=== PATIENT | female | born 1950 | race Caucasian/White ===

== ENCOUNTER → 2019-07-26 09:44 | Outpatient (CLI) | payer MEDICARE, OTHER, SELFPAY ==
--- NOTE | 2019-07-26 | ASPOS_PTH ---
PATIENT: TRISH HEREDIA LOC: [facility] U#:[id number] AGE/SX: 74/F ROOM: RE07/26/[address]: Dr. Messi Tejeda MD : 1950 BED: DIS: SPEC #: [id number] RECD: 07/26/19 12:28 STATUS: JUSTIN REBebeto #: [id number] SINA: 07/26/19 00:[address]: Messi Tejeda DEPT: CYTOLOGY RECD BY: Messi Ellison ENTERED: 07/26/19 12:29 SP TYPE: ASP HERE OTHR DR: Dr. Jeny Ponce MD Tissues: Parotid gland, NOS Procedures: Surgery Specimen Level IV Cytology Other Fine Needle Asp on Site HEADER OPERATION: FNA right parotid/neck mass PRE-OP DIAGNOSIS: Right neck mass TISSUE SUBMITTED: FNA right parotid/neck mass DIAGNOSIS CYTOLOGY Fine needle aspiration, right parotid/neck mass (smears and cell block): Consistent with pleomorphic adenoma. AM:liya 07/27/19 COMMENT The specimen is evaluated at the time of FNA by Dr. Marroquin. Immediate Evaluation = Consistent with polymorphic adenoma. Case has been reviewed in consultation with Dr. Chairez who concurs with the above diagnosis. IDC:SJ CYTOLOGY STUDY Slides are reviewed. CYTOLOGY GROSS Received is 0.2 ml of mucoid material labeled with the patient's name, and designated right parotid/neck mass. Five imprints and two paps are made from the submitted fluid and the rest is added to CytoLyt for cell block preparation. Submitted for cytology study. / AM:liya 07/26/19 TC:1 CPT: 39194, 48710, 07352
== END ==
PROVIDERS: Family Provider Internal Medicine; PCP Internal Medicine; Referring Provider Otolaryngology; Visit Provider Otolaryngology
DX: K11.8 Other diseases of salivary glands (principal)
CPT/HCPCS: 10021; 88161; 88305

== ENCOUNTER 2020-03-06 05:48 | Day surgery (SDC) | payer MEDICARE, OTHER, SELFPAY ==
--- NOTE | 2020-02-28 16:57 | EKG12_ITS ---
Test Reason : PREOP Blood Pressure : / mmHG Vent. Rate : 076 BPM Atrial Rate : 076 BPM P-R Int : 164 ms QRS Dur : 086 ms QT Int : 340 ms P-R-T Axes : 045 039 039 degrees QTc Int : 382 ms Normal sinus rhythm Normal ECG Confirmed by EVE RUIZ, CHRISTINA ([id number]), mapping editor STEPHANIA LOPEZ ([id number]) on 03/01/2020 1:29:39 PM Referred By: Celestino Tejeda Confirmed By:CHRISTINA PRADO MD
[2020-03-06] VITALS (13 sets, daily range): BP systolic 89–157; BP diastolic 52–82; PULSE 16–78; RESP 15–16; TEMP 36–36.6; O2SAT 88–98; BMI 34.6
[2020-03-06] MEDS: Lactated Ringers 1,000 ML 100 ML IV ×3 (06:22→14:30)
--- NOTE | 2020-03-06 07:30 | CYST_PTH ---
PATIENT: TRISH HEREDIA LOC: [facility] [place] U#:[id number] AGE/SX: 69/F ROOM: RE03/06/[address]: Dr. Messi Tejeda MD : 1950 BED: DIS: 03/06/2020 SPEC #: [id number] RECD: 03/06/20 12:26 STATUS: JUSTIN REBebeto #: [id number] SINA: 03/06/20 07:[address]: Messi Tejeda DEPT: SURGICAL PATHOLOGY RECD BY: Messi Ellison ENTERED: 03/06/20 12:39 SP TYPE: Cyst OTHR DR: Dr. Jeny Ponce MD Tissues: A - CYST B - Parotid gland, NOS Procedures: Surgery Specimen Level V HEADER OPERATION: Parotidectomy, fat graft PRE-OP DIAGNOSIS: Benign neoplasm of parotid gland TISSUE SUBMITTED: A - Cyst right neck, B - Superficial right parotid gland and mass MICROSCOPIC DIAGNOSIS A. Cyst right neck, biopsy: Pleomorphic adenoma (1.5 cm in greatest dimension). A piece of fibrous tissue with numerous nerve bundles. B. Superficial right parotid gland and mass, parotidectomy: Pleomorphic adenoma (1.5 cm in diameter). Adjacent salivary gland tissue, no pathologic diagnosis. See comment. SJ:liya 03/07/20 COMMENT Please make reference to previous specimen ([id number]) fine needle aspiration, right parotid/neck mass with diagnosis of consistent with pleomorphic adenoma. MICROSCOPIC DESCRIPTION Slides are reviewed. GROSS DESCRIPTION A - Received in fixative is one container labeled with the patient's name and designated cyst right neck. The specimen consists of a piece of dotson, indurated soft tissue measuring 0.5 x 0.5 x 0.3 cm. This piece is bisected. Also present in the container is a dotson to light yellow nodular tissue measuring 1.5 x 1.5 x 0.6 cm. This piece is inked, serially sectioned and consists of a cyst filled with mucoid material. The entire specimen is submitted in one cassette. B - Received in fixative is one container labeled with the patient's name and designated superficial right parotid gland and mass. The specimen consists of a piece of dotson nodular tissue measuring 2.5 x 2 x 1.5 cm and weighing 3 gm. The specimen is serially sectioned and reveal a dotson-white solid nodule measuring 1.5 cm in diameter. The entire specimen is submitted in four cassettes from one end to another. / SJ:rg 03/06/20 TC:1 CPT: 06028 x2
[2020-03-06] MEDS: Mupirocin Ointment 22gm Tube 1 APPLIC (08:33)
--- NOTE | 2020-03-06 13:14 | DCINST_ITS ---
You will use the following diet at home:: No restrictions Your food should be the consistency of: Regular Discharge Activity: May not drive while taking narcotic pain medications., May Not Shower Call your doctor if your incision/area has: Increased Pain/ Swelling Additional Dressing/Incision Instructions:: record drain output. mupirocin ointment to facial incision twice daily. wear abdominal binder snug but not too tight. sleep with head of bed elevated. Allergies/Adverse Reactions: Allergies No Known Allergies Allergy (Verified 03/06/20 06:06) Medications to take at Discharge Albuterol Inhaler [Ventolin Hfa (SP)] 1 - 2 puff INHALATION Q6H PRN PRN 02/28/20 Fluticasone 110 Mcg [Flovent (SP)] 1 puff INHALATION PRN PRN 02/28/20 Pantoprazole Sodium [Protonix] 20 mg PO DAILY 02/28/20 Primary Care Physician: Jeny Ponce MD [Primary Care Provider] - Test Results: Test results from this visit will be discussed in further detail at your follow- up appointment, if applicable. Please Follow Up With: Celestino Tejeda MD When: friday 8am
--- NOTE | 2020-03-06 13:16 | PCM.OPRPT ---
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 right superficial parotidectomy with dissection and preservation of facial nerve. 2. abdominal fat graft. 3. superficial musculoaponeurotic system flap, right. Type of Anesthesia:: General Description of Procedure: on the day of the procedure, after appropriate informed consent was obtained, the patient was brought to the operating room and placed in supine position on the operating table. she was placed under general endotracheal anesthesia by the anesthesiologist. the endotracheal tube was secured, tegaderm was placed over the eyes. right-sided facial nerve electrodes were placed appropriately. a right modified kelsi incision was injected with lidocaine/epinephrine. the face was prepped and draped in sterile fashion. the kelsi incision was made with a #15 blade. the subcutaneous fat was entered in the preauricular area traversing into the neck, superficial to the platysma. a 15 blade was used to incise the parotid masseteric fascia anterior to the tragus. the superficial musculoaponeurotic system flap was elevated 4cm anterior to the tragus and lifted into the neck with the platysma muscle. the tumor was very superficial and stuck to the SMAS. this area was left partly undissected until later in the case. an infraauricular sebaceous cyst was removed; this was subcutaneous and anterior to the kelsi incision. the tragal pointer was dissected in a supraperichondrial plane with an iris scissor. the inferior portion of the parotid was dissected off of the sternocleidomastoid muscle with the bovie. tissue 1cm deep and inferior to the tragal pointer was carefully dissected. a shavon dissector was used to locate the main trunk of the facial nerve. this was stimulated and confirmed. this was dissected distally to the pes anserinus. the upper division was dissected proximally. the lower division branches were dissected starting from inferior to superior. the marginal mandibular branch and the buccal branch were both intimately associated with the tumor and carefully dissected off with the sands. the SMAS was reflected off of the lateral portion of the tumor carefully with an iris scissor. once safe, the tumor was truncated and removed from surrounding tissue. the main trunk of the facial nerve was stimulated and all branches showed normal movement. the left lower quadrant was injected with lidocaine/epinephrine. a 3cm incision was made transversely with a 15 blade. a 3cm x 3cm portion of fat was dissected subcutaneously and removed using a Metzenbaum scissor. hemostasis was achieved with the bipolar. the incision was closed with 4-0 vicryl and 4-0 monocryl. a brody drain was placed. the fat graft was irrigated and placed in the parotidectomy defect. this was sutured to surrounding fascia and remaining gland with 4-0 vicryl. the superficial musculoaponeurotic system flap was closed over the remaining parotid and fat graft with 4-0 vicryl. a drain was placed lateral to the SMAS flap. the skin was closed with 4-0 chromic and 5-0 nylon. the patient was awoken from anesthesia and transferred to the PACU in stable condition.
== END 2020-03-06 17:36 | disposition home or self-care (01) ==
LOC: SDC 05:48 → AC 05:48
PROVIDERS: Anesthesiology; PCP Internal Medicine; Referring Provider Otolaryngology; Visit Provider Otolaryngology
PROC: (CPT 15829; principal; 2020-03-06 07:00)
DX: D11.0 Benign neoplasm of parotid gland (principal); K21.9 Gastro-esophageal reflux disease without esophagitis; J45.909 Unspecified asthma, uncomplicated
CPT/HCPCS: 15829; 42415; 87635; 88304; 88305; 88307; 93005; 94799; J7120; J2405; U0003

== ENCOUNTER → 2021-04-18 09:53 | Outpatient (CLI) | payer MEDICARE, OTHER, SELFPAY ==
--- NOTE | 2021-04-18 09:56 | ART_ITS ---
Reason For Study: Decreased pulses in feet Procedure A bilateral lower extremity continuous wave Doppler with analog waveform analysis,segmental pressures,and ankle brachial indexes without exercise. Left Segmental Pressures Left brachial= 150mmHg. Left posterior tibial artery = 166mmHg. Left dorsalis pedis artery = 163mmHg. The left dorsalis pedis waveforms are triphasic. The left posterior tibial artery waveforms are triphasic. Right Segmental Pressures Right brachial= 153mmHg. Right posterior tibial artery = 188mmHg. Right dorsalis pedis artery = 174mmHg. The right dorsalis pedis waveforms are triphasic. The right posterior tibial artery waveforms are triphasic. Indices The right ankle brachial index by the dorsalis pedis is 1.14. The right ankle brachial index by the posterior tibial artery is 1.23. The left ankle brachial index by the dorsalis pedis is 1.07. The left ankle brachial index by the posterior tibial artery is 1.08. VL/Lower Ext Art Exam w/o Exercis Interpretation Summary Triphasic Doppler waveforms are noted at ankle level bilaterally. Pulse-volume recordings appear slightly diminished at digital level bilaterally, but satisfactory at all other levels bilaterally. Resting ankle-brachial indices are normal bilaterally. There is no evidence of significant arterial occlusive disease in the lower ext remities bilaterally. Ordering Physician: Jeny Ponce Referring Physician: Jeny Ponce Performed By: Petrona Rios RVT
== END ==
PROVIDERS: PCP Internal Medicine; Referring Provider Internal Medicine; Visit Provider Internal Medicine
DX: R09.89 Other specified symptoms and signs involving the circulatory and respiratory systems (principal)
CPT/HCPCS: 93923

== ENCOUNTER → 2023-08-21 | Outpatient (CLI) | payer MEDICARE, SELFPAY ==
[2023-08-21 09:00] LABS: Absolute Lymphocyte Count 1.86 X10^3/uL (0.83-4.51); Absolute Neutrophil Count 3.3 X10^3/uL (2.0-7.7); Basophil# 0.02 X10^3/uL; Basophil% 0.4 % (0-1); Eosinophil# 0.17 X10^3/uL; Hematocrit 43.2 % (37-47); Hemoglobin 13.2 g/dL (12.0-15.0); Lymphocyte # 1.86 X10^3/ul (0.83-4.51); Mean Corp Hgb Conc 30.6 g/dL (32-36); Mean Corpuscular Hgb 24.5 pg (27.0-32.0); Mean Corpuscular Volume 80.3 fL (81-99); Mean Platelet Vol. 9.6 fl (6.2-12.0); Monocyte# 0.28 X10^3/uL; NRBC Flagged by Analyzer 0 % (0-5); Neutrophil # 3.29 X10^3/uL (2.7-7.7); Neutrophil % 58.4 % (47-70); Platelet Count 163 K/mm3 (150-450); RBC Distribution Width SD 40.4 fl (35.1-43.9); Red Blood Count 5.38 M/mm3 (4.2-5.4); White Blood Count 5.6 K/mm3 (4.4-11.0)
--- OUTSIDE RECORDS SUMMARY | 2023-08-21 09:47 | XMS RPT_ITS | CCD ---
Author Name Unknown Address [address] [place] [address] Organization [facility] Care Team Providers Care Integration Software Engineer Name Role Phone Zak Alexx Lee Unavailable Unavailable Crespo, Alexx A Unavailable Unavailable Marisa Montelongo Unavailable Unavailable [place], Sade Priyanka Primary Care Provider AGNIESZKA RIBEIRO Attending Unavailable CRESPO, ALEXX A Referring Unavailable AGNIESZKA RIBEIRO Attending Unavailable CRESPO, ALEXX A Referring Unavailable CRESPO, ALEXX BOWENS Attending Unavailable SHAHRZAD, SADE PRIYANKA Primary Care Unavailable CRESPO, ALEXX BOWENS Attending Unavailable SHAHRZAD, SADE PRIYANKA Primary Care Unavailable CRESPO, ALEXX KWAN Admitting Unavailable CRESPO, ALEXX KWAN Referring Unavailable SHAHRZAD, SADE PRIYANKA Primary Care Unavailable Sade Ponce MD Primary Care Provider Isai Ponce MD Primary Care Provider Queden CAMPGROUND MANAGER.PARRIS Lana Lee Primary Care Provider Queden CAMPGROUND MANAGER.Nikia NYEtny Lee Primary Care Provider QUEDEN, LANA A Referring Unavailable QUEDEN, LANA A Primary Care Unavailable QUEDEN, LANA A Primary Care Unavailable QUEDEN, LANA A Attending Unavailable QUEDEN, LANA A Referring Unavailable QUEDEN, LANA A Primary Care Unavailable QUEDEN, LANA A Attending Unavailable QUEDEN, LANA A Primary Care Unavailable QUEDEN, LANA A Attending Unavailable QUEDEN, LANA A Primary Care Unavailable QUEDEN, LANA A Attending Unavailable QUEDEN, LANA A Referring Unavailable QUEDEN, LANA A Primary Care Unavailable QUEDEN, LANA A Referring Unavailable QUEDEN, LANA A Primary Care Unavailable QUEDEN, LANA A Attending Unavailable QUEDEN, LANA A Primary Care Unavailable QUEDEN, LANA A Referring Unavailable QUEDEN, LANA A Primary Care Unavailable QUEDEN, LANA A Referring Unavailable QUEDEN, LANA A Primary Care Unavailable QUEDEN, LANA A Referring Unavailable QUEDEN, LANA A Referring Unavailable QUEDEN, LANA A Primary Care Unavailable QUEDEN, LANA A Primary Care Unavailable QUEDEN, LANA A Referring Unavailable QUEDEN, LANA A Primary Care Unavailable Allergies Allergy Classification Reported Allergen(s) Allergy Type Date of Onset Reaction(s) Facility (20 sources) Amoxicillin; Translations: [AMOXICILLIN] Drug Allergy 04-12-2020 [facility] Medications Current Medications Medication Drug Class(es) Dates Sig (Normalized) Sig (Original) ALPRAZolam 0.25 mg oral tablet (3 sources) Benzodiazepine Start: 03-25-2023 End: 04-22-2023 take 1 tablet by mouth every twelve hours as needed for anxiety and anxiety ALPRAZolam (XANAX) 0.25 mg tablet Indications: Anxiety Take 1 tablet by mouth twice daily as needed for anxiety or sedation for up to 28 days. 28 tablet 0 03/25/2023 04/22/2023 Active Completed/Discontinued Medications Medication Drug Class(es) Dates Sig (Normalized) Sig (Original) acetaminophen 325 mg / oxyCODONE hydrochloride 5 mg oral tablet (2 sources) Opioid Agonist Start: 07-21-2018 End: 09-01-2018 oxyCODONE-acetami nophen (PERCOCET) 5-325 mg per tablet [id number] 200 actuat albuterol 0.09 mg/actuat metered dose inhaler (20 sources) beta2-Adrenergic Agonist Start: 08-13-2022 take 2 puff(s) by inhalation every six hours as needed albuterol HFA (VENTOLIN HFA) 90 mcg/actuation inhaler Indications: SOB (shortness of breath) Inhale 2 Puffs as instructed every 6 hours as needed. 8.5 g 2 08/13/2022 Active Problems Active Problems Problem Classification Problem Date Documented Date Episodic/Chronic Anxiety disorders (20 sources) Anxiety; Translations: [Anxiety disorder, unspecified] Onset: 05-07-2022 Chronic Asthma (20 sources) Mild intermittent asthma; Translations: [Mild intermittent asthma with (acute) exacerbation] Onset: 08-13-2022 Chronic Diabetes mellitus without complication (2 sources) High hemoglobin A1c level; Translations: [Other abnormal glucose] Onset: 05-27-2023 05-27-2023 Episodic Disorders of lipid metabolism (20 sources) Mixed hyperlipidemia; Translations: [Mixed hyperlipidemia] Onset: 05-07-2022 Chronic Esophageal disorders (1 source) Gastro-esophageal reflux disease without esophagitis; Translations: [Hiatal hernia with GERD] Onset: 08-13-2022 Chronic Immunizations and screening for infectious disease (4 sources) Patient encounter status; Translations: [Encounter for immunization] Episodic Osteoarthritis (20 sources) Osteoarthritis of left knee joint; Translations: [Unilateral primary osteoarthritis, left knee] Onset: 09-17-2018 09-17-2018 Chronic Osteoarthritis (1 source) Osteoarthritis of right knee joint; Translations: [Primary osteoarthritis of right knee] Other aftercare (1 source) Other residential (current) drug therapy; Translations: [prison use of drug] Onset: 06-19-2023 Episodic Other connective tissue disease (20 sources) History of total knee arthroplasty; Translations: [Presence of left artificial knee joint] Onset: 09-17-2018 09-17-2018 Chronic Other ear and sense organ disorders (1 source) Impacted cerumen in left ear; Translations: [Impacted cerumen, left ear] 04-11-2023 Episodic Other inflammatory condition of skin (1 source) Psoriasis vulgaris; Translations: [Psoriasis vulgaris] Onset: 06-19-2023 Chronic Other lower respiratory disease (1 source) Lower respiratory tract infection; Translations: [Unspecified acute lower respiratory infection] Episodic Other lower respiratory disease (1 source) Cough; Translations: [Acute cough] 04-11-2023 Episodic Other lower respiratory disease (3 sources) Chronic cough; Translations: [Chronic cough] Onset: 05-27-2023 05-27-2023 Episodic Other nervous system disorders (20 sources) Walking difficulty due to lower leg; Translations: [Difficulty in walking, not elsewhere classified] Onset: 09-17-2018 09-17-2018 Chronic Other nutritional; endocrine; and metabolic disorders (20 sources) Obese class II; Translations: [Obesity, unspecified] Onset: 04-22-2018 04-22-2018 Chronic Other nutritional; endocrine; and metabolic disorders (20 sources) Obese class I; Translations: [Obesity, unspecified] Onset: 10-10-2021 10-10-2021 Chronic Other screening for suspected conditions (not mental disorders or infectious disease) (1 source) Encounter for screening for diseases of the blood and blood-forming organs and certain disorders involving the immune mechanism; Translations: [Screening for deficiency anemia] Onset: 05-27-2023 Episodic Unclassified (1 source) Acute cough; Translations: [Acute cough] Onset: 04-11-2023 Past or Other Problems Problem Classification Problem Date Documented Date Episodic/Chronic Abdominal hernia (20 sources) Gastroesophageal reflux disease with hiatal hernia; Translations: [Diaphragmatic hernia without obstruction or gangrene] Onset: 08-13-2022 Episodic Nonspecific chest pain (1 source) Other chest pain; Translations: [Chest tightness] Onset: 11-05-2022 Episodic Other lower respiratory disease (20 sources) Dyspnea; Translations: [Shortness of breath] Onset: 08-13-2022 Episodic Other lower respiratory disease (20 sources) Persistent cough; Translations: [Persistent cough] Onset: 08-13-2022 Episodic Other lower respiratory disease (1 source) Shortness of breath; Translations: [SOB (shortness of breath)] Onset: 08-13-2022 Episodic Other non-traumatic joint disorders (20 sources) Stiffness of left knee; Translations: [Stiffness of left knee, not elsewhere classified] Onset: 09-17-2018 09-17-2018 Episodic Other non-traumatic joint disorders (20 sources) Pain in left knee; Translations: [Pain in joint, lower leg] Onset: 09-17-2018 09-17-2018 Episodic Other upper respiratory infections (3 sources) Acute frontal sinusitis; Translations: [Acute frontal sinusitis, unspecified] Onset: 04-11-2023 Episodic Results Test Name Value Interpretation Reference Range Facil ity Vital Signs Date Time Vital Sign Value Performing Clinician Dilia khan 05-27-2023 13:31-0500 Body height 160.7 cm Lana Valentin APRN.CNP Work Phone: [facility] 05-27-2023 13:31-0500 Body temperature 97.9 [degF] Lana Queden CAMPGROUND MANAGER.NAILHEAD PUNCHER Work Phone: [facility] 05-27-2023 13:31-0500 Body weight 84.37 kg Lana Queden CAMPGROUND MANAGER.NAILHEAD PUNCHER Work Phone: [facility] 05-27-2023 13:31-0500 Diastolic blood pressure 74 mm[Hg] Lana Queden CAMPGROUND MANAGER.NAILHEAD PUNCHER Work Phone: [facility] 05-27-2023 13:31-0500 Heart rate 72 /min Lana Queden CAMPGROUND MANAGER.NAILHEAD PUNCHER Work Phone: [facility] 05-27-2023 13:31-0500 Respiratory rate 18 /min Lana Queden CAMPGROUND MANAGER.NAILHEAD PUNCHER Work Phone: [facility] 05-27-2023 13:31-0500 SaO2% (BldA) [Mass fraction] 97 % Lana Queden CAMPGROUND MANAGER.NAILHEAD PUNCHER Work Phone: [facility] 05-27-2023 13:31-0500 Systolic blood pressure 116 mm[Hg] Lana Queden CAMPGROUND MANAGER.NAILHEAD PUNCHER Work Phone: [facility] 04-11-2023 08:01-0400 Body height 160.7 cm Lana Queden CAMPGROUND MANAGER.NAILHEAD PUNCHER Work Phone: [facility] 04-11-2023 08:01-0400 Body temperature 98.2 [degF] Lana Queden CAMPGROUND MANAGER.NAILHEAD PUNCHER Work Phone: [facility] 04-11-2023 08:01-0400 Body weight 88.45 kg Lana Queden CAMPGROUND MANAGER.NAILHEAD PUNCHER Work Phone: [facility] 04-11-2023 08:01-0400 Diastolic blood pressure 76 mm[Hg] Lana Queden CAMPGROUND MANAGER.NAILHEAD PUNCHER Work Phone: [facility] 04-11-2023 08:01-0400 Heart rate 93 /min Lana Queden CAMPGROUND MANAGER.NAILHEAD PUNCHER Work Phone: [facility] 09-22-2023 08:01-0400 Respiratory rate 16 /min Lana Queden CAMPGROUND MANAGER.NAILHEAD PUNCHER Work Phone: [facility] 04-11-2023 08:01-0400 SaO2% (BldA) [Mass fraction] 98 % Lana Queden CAMPGROUND MANAGER.NAILHEAD PUNCHER Work Phone: [facility] 04-11-2023 08:01-0400 Systolic blood pressure 120 mm[Hg] Lana Queden CAMPGROUND MANAGER.NAILHEAD PUNCHER Work Phone: [facility] 03-25-2023 09:10-0400 Body height 160.7 cm Lana Queden CAMPGROUND MANAGER.NAILHEAD PUNCHER Work Phone: [facility] 03-25-2023 09:10-0400 Body temperature 97.7 [degF] Lana Queden CAMPGROUND MANAGER.NAILHEAD PUNCHER Work Phone: [facility] 03-25-2023 09:10-0400 Body weight 87.54 kg Lana Queden CAMPGROUND MANAGER.NAILHEAD PUNCHER Work Phone: [facility] 03-25-2023 09:10-0400 Diastolic blood pressure 72 mm[Hg] Lana Queden CAMPGROUND MANAGER.NAILHEAD PUNCHER Work Phone: [facility] 03-25-2023 09:10-0400 Heart rate 83 /min Lana Queden CAMPGROUND MANAGER.NAILHEAD PUNCHER Work Phone: [facility] 03-25-2023 09:10-0400 Respiratory rate 18 /min Lana Queden CAMPGROUND MANAGER.NAILHEAD PUNCHER Work Phone: [facility] 03-25-2023 09:10-0400 SaO2% (BldA) [Mass fraction] 96 % Lana Queden CAMPGROUND MANAGER.NAILHEAD PUNCHER Work Phone: [facility] 03-25-2023 09:10-0400 Systolic blood pressure 120 mm[Hg] Lana Queden CAMPGROUND MANAGER.NAILHEAD PUNCHER Work Phone: [facility] 11-25-2022 09:28-0400 Body height 160.7 cm Lana Queden CAMPGROUND MANAGER.NAILHEAD PUNCHER Work Phone: [facility] 11-25-2022 09:28-0400 Body temperature 98.01 [degF] Lana Queden CAMPGROUND MANAGER.NAILHEAD PUNCHER Work Phone: [facility] 11-25-2022 09:28-0400 Body weight 91.63 kg Lana Queden CAMPGROUND MANAGER.NAILHEAD PUNCHER Work Phone: [facility] 11-25-2022 09:28-0400 Diastolic blood pressure 78 mm[Hg] Lana Queden CAMPGROUND MANAGER.NAILHEAD PUNCHER Work Phone: [facility] 11-25-2022 09:28-0400 Heart rate 70 /min Lana Queden CAMPGROUND MANAGER.NAILHEAD PUNCHER Work Phone: [facility] 11-25-2022 09:28-0400 Respiratory rate 18 /min Lana Queden CAMPGROUND MANAGER.NAILHEAD PUNCHER Work Phone: [facility] 11-25-2022 09:28-0400 SaO2% (BldA) [Mass fraction] 98 % Lana Queden CAMPGROUND MANAGER.NAILHEAD PUNCHER Work Phone: [facility] 11-25-2022 09:28-0400 Systolic blood pressure 120 mm[Hg] Lana Queden CAMPGROUND MANAGER.NAILHEAD PUNCHER Work Phone: [facility] 08-13-2022 16:13-0500 Body height 160.7 cm Lana Queden CAMPGROUND MANAGER.NAILHEAD PUNCHER Work Phone: [facility] 08-13-2022 16:13-0500 Body temperature 97.9 [degF] Lana Queden CAMPGROUND MANAGER.NAILHEAD PUNCHER Work Phone: [facility] 08-13-2022 16:13-0500 Body weight 87.54 kg Lana Queden CAMPGROUND MANAGER.NAILHEAD PUNCHER Work Phone: [facility] 08-13-2022 16:13-0500 Diastolic blood pressure 80 mm[Hg] Lana Queden CAMPGROUND MANAGER.NAILHEAD PUNCHER Work Phone: [facility] 08-13-2022 16:13-0500 Heart rate 76 /min Lana Queden CAMPGROUND MANAGER.NAILHEAD PUNCHER Work Phone: [facility] 08-13-2022 16:13-0500 Respiratory rate 18 /min Lana Queden CAMPGROUND MANAGER.NAILHEAD PUNCHER Work Phone: [facility] 08-13-2022 16:13-0500 SaO2% (BldA) [Mass fraction] 97 % Lana Queden CAMPGROUND MANAGER.NAILHEAD PUNCHER Work Phone: [facility] 08-13-2022 16:13-0500 Systolic blood pressure 134 mm[Hg] Lana Queden CAMPGROUND MANAGER.NAILHEAD PUNCHER Work Phone: [facility] 07-10-2022 09:58-0500 Body height 160.7 cm Laurel Brooks CAMPGROUND MANAGER.NAILHEAD PUNCHER Work Phone: [facility] 07-10-2022 09:58-0500 Body temperature 97.5 [degF] Laurel Trill CAMPGROUND MANAGER.NAILHEAD PUNCHER Work Phone: [facility] 07-10-2022 09:58-0500 Body weight 87.54 kg Laurel Trill CAMPGROUND MANAGER.NAILHEAD PUNCHER Work Phone: [facility] 07-10-2022 09:58-0500 Diastolic blood pressure 82 mm[Hg] Laurel Trill CAMPGROUND MANAGER.NAILHEAD PUNCHER Work Phone: [facility] 07-10-2022 09:58-0500 Heart rate 85 /min Laurel Trill CAMPGROUND MANAGER.NAILHEAD PUNCHER Work Phone: [facility] 07-10-2022 09:58-0500 SaO2% (BldA) [Mass fraction] 98 % Laurel Trill CAMPGROUND MANAGER.NAILHEAD PUNCHER Work Phone: [facility] 07-10-2022 09:58-0500 Systolic blood pressure 146 mm[Hg] Laurel Trill CAMPGROUND MANAGER.NAILHEAD PUNCHER Work Phone: [facility] 05-17-2022 11:13-0400 Body height 160.7 cm Laurel Trill CAMPGROUND MANAGER.NAILHEAD PUNCHER Work Phone: [facility] 05-17-2022 11:13-0400 Body temperature 98.29 [degF] Laurel Trill CAMPGROUND MANAGER.NAILHEAD PUNCHER Work Phone: [facility] 05-17-2022 11:13-0400 Body weight 88 kg Laurel Trill CAMPGROUND MANAGER.NAILHEAD PUNCHER Work Phone: [facility] 05-17-2022 11:13-0400 Diastolic blood pressure 76 mm[Hg] Laurel Trill CAMPGROUND MANAGER.NAILHEAD PUNCHER Work Phone: [facility] 05-17-2022 11:13-0400 Heart rate 74 /min Laurel Trill CAMPGROUND MANAGER.NAILHEAD PUNCHER Work Phone: [facility] 05-17-2022 11:13-0400 SaO2% (BldA) [Mass fraction] 96 % Laurel Trill CAMPGROUND MANAGER.NAILHEAD PUNCHER Work Phone: [facility] 05-17-2022 11:13-0400 Systolic blood pressure 124 mm[Hg] Laurel Trill CAMPGROUND MANAGER.NAILHEAD PUNCHER Work Phone: [facility] 05-07-2022 09:29-0400 Body height 160.7 cm Lana Queden CAMPGROUND MANAGER.NAILHEAD PUNCHER Work Phone: [facility] 05-07-2022 09:29-0400 Body temperature 98.2 [degF] Lana Queden CAMPGROUND MANAGER.NAILHEAD PUNCHER Work Phone: [facility] 05-07-2022 09:29-0400 Body weight 87.09 kg Lana Queden CAMPGROUND MANAGER.NAILHEAD PUNCHER Work Phone: [facility] 05-07-2022 09:29-0400 Diastolic blood pressure 68 mm[Hg] Lana Queden CAMPGROUND MANAGER.NAILHEAD PUNCHER Work Phone: [facility] 05-07-2022 09:29-0400 Heart rate 67 /min Lana Queden CAMPGROUND MANAGER.NAILHEAD PUNCHER Work Phone: [facility] 05-07-2022 09:29-0400 Respiratory rate 20 /min Lana Queden CAMPGROUND MANAGER.NAILHEAD PUNCHER Work Phone: [facility] 05-07-2022 09:29-0400 SaO2% (BldA) [Mass fraction] 100 % Lana Valentin CAMPGROUND MANAGER.NAILHEAD PUNCHER Work Phone: [facility] 05-07-2022 09:29-0400 Systolic blood pressure 120 mm[Hg] Lana Soodsatya CAMPGROUND MANAGER.NAILHEAD PUNCHER Work Phone: [facility] Encounters Encounter Date Encounter Type Care Provider Facility Start: 06-19-2023 End: 06-20-2023 ambulatory LANA VALENTIN Facility:[facility] Start: 05-28-2023 Telephone encounter Lanaveronica Soodsatya CAMPGROUND MANAGER.NAILHEAD PUNCHER Work Phone: [facility] Procedures Date Procedure Procedure Detail Performing Clinician Start: 05-27-2023 Radiologic exam ches t 2 views Lana Soodastya CAMPGROUND MANAGER.NAILHEAD PUNCHER Work Phone: Start: 05-27-2023 Lipid 1996 panel - S delfina or Plasma Lana Soodden CAMPGROUND MANAGER.NAILHEAD PUNCHER Work Phone: Start: 09-18-2022 Co diffusing capacity B maggie Howard Zia CAMPGROUND MANAGER.NAILHEAD PUNCHER Work Phone: Start: 08-24-2022 Lipid 1996 panel - S delfina or Plasma Lana Queden CAMPGROUND MANAGER.NAILHEAD PUNCHER Work Phone: Start: 05-07-2022 INFLUENZA SEASONAL QUADRIVALENT HIGH DOSE AGE 65+ Lana Soodden CAMPGROUND MANAGER.NAILHEAD PUNCHER Work Phone: Start: 04-24-2021 Mammography Sade tejada MD Work Phone: Start: 03-22-2021 Adult depression scr eening assessment Sade Ponce MD Work Phone: Start: 02-29-2020 Arthrocentesis Alexx Crespo Work Phone: Start: 09-01-2018 Radiologic exam knee complete 4/more views Alexx Crespo Work Phone: Start: 08-27-2018 Colonoscopy Sade tejada MD Work Phone: Start: 08-04-2018 X-ray of left knee Step jr Crespo Work Phone: Plan of Treatment Date Care Activity Detail Author Start: 05-27-2028 Lipid 1996 panel - S delfina or Plasma Lipid Screening [facility] Start: 04-22-2028 Tetanus vaccination [facility] Start: 04-22-2028 Urine microalbumin profile [facility] Start: 08-24-2027 Lipid 1996 panel - S delfina or Plasma Lipid Screening [facility] Start: 08-24-2027 LIPID SCREEN LIPID SCREEN [facility] Start: 05-07-2027 LIPID SCREEN LIPID SCREEN [facility] Start: 05-27-2026 Diabetes Screening Diabetes Screenin g [facility] Start: 03-22-2026 LIPID SCREEN LIPID SCREEN [facility] Start: 05-07-2025 DIABETES SCREEN DIABETES SCREEN [facility] Start: 05-07-2025 Diabetes Screening Diabetes Screenin g [facility] Start: 05-27-2024 Annual PCP Team Hip Hop Dancer caren Disease Visit Annual PCP Team Chronic Disease Visit [facility] Start: 04-11-2024 Annual PCP Team Hip Hop Dancer caren Disease Visit Annual PCP Team Chronic Disease Visit [facility] Start: 03-31-2024 COLOGUARD (FIT-DNA) COLOGUARD (FIT-D NA) [facility] Start: 03-31-2024 COLORECTAL CANCER SCREENING COLORECTAL CANCER SCREENING [facility] Start: 03-25-2024 ANNUAL PCP TEAM EXTRUDING MACHINE OPERATOR CAREN DISEASE VISIT ANNUAL PCP TEAM CHRONIC DISEASE VISIT [facility] Start: 03-22-2024 DIABETES SCREEN DIABETES SCREEN [facility] Start: 11-26-2023 ANNUAL PCP TEAM EXTRUDING MACHINE OPERATOR CAREN DISEASE VISIT ANNUAL PCP TEAM CHRONIC DISEASE VISIT [facility] Start: 11-06-2023 ANNUAL PCP TEAM EXTRUDING MACHINE OPERATOR CAREN DISEASE VISIT ANNUAL PCP TEAM CHRONIC DISEASE VISIT [facility] Start: 11-06-2023 COVID-19 VACCINE (3 - Booster for Moderna series) COVID-19 VACCINE (3 - Booster for Moderna series) [facility] Immunizations Immunization Date Immunization Notes Care Provider Fa cility 05-20-2023 influenza (HD-IIV4) vaccine, age 65+ yr, high dose, quadrivalent, PF (FLUZONE HIGH-DOSE) Lana Valentin APRN.NAILHEAD PUNCHER Work Phone: [facility] 05-07-2022 influenza, high-dose , quadrivalent vaccine (FLUZONE HIGH DOSE QUADRIVALENT) Lana Valentin APRN.NAILHEAD PUNCHER Work Phone: [facility] 05-07-2022 influenza virus vacc ine, unspecified formulation Lana Valentin CAMPGROUND MANAGER.NAILHEAD PUNCHER Work Phone: [facility] 07-01-2021 influenza, high dose seasonal, preservative-free Sade Ponce MD Work Phone: [facility] 07-01-2021 influenza, high-dose , quadrivalent vaccine (FLUZONE HIGH DOSE QUADRIVALENT) Sade Ponce MD Work Phone: [facility] 04-15-2021 COVID-19 original vaccine, full dose, monovalent (MODERNA) Lana Valentin APRN.NAILHEAD PUNCHER Work Phone: [facility] 03-18-2021 COVID-19 original vaccine, full dose, monovalent (MODERNA) Lana Valentin CAMPGROUND MANAGER.NAILHEAD PUNCHER Work Phone: [facility] 06-05-2020 zoster vaccine recombinant Sade Ponce MD Work Phone: [facility] 04-12-2020 influenza, high-dose , quadrivalent vaccine (FLUZONE HIGH DOSE QUADRIVALENT) Sade Ponce MD Work Phone: [facility] 01-11-2020 zoster vaccine recombinant Sade Ponce MD Work Phone: [facility] 04-16-2019 influenza, high dose seasonal, preservative-free Sade Ponce MD Work Phone: [facility] 04-22-2018 influenza, high dose seasonal, preservative-free Sade Ponce MD Work Phone: [facility] 04-22-2018 tetanus toxoid, redu karen diphtheria toxoid, and acellular pertussis vaccine, adsorbed Sade [place] MD Work Phone: [facility] 11-17-2017 pneumococcal polysaccharide vaccine, 23 valade Ponce MD Work Phone: [facility] 09-22-2017 pneumococcal conjuga te vaccine, 13 valade Ponce MD Work Phone: [facility] Payers Date Payer Category Payer Unknown [id number] 2021 Medicare HUMANA MEDICARE HUMANA GOLD PLUS [id number] 2021-Present [phone] [address] [address] [place] [address] O [id number] 2021 Private Health Insurance [id number] 2018 Medicare 2018 Unknown 2014 Medicare MEDICARE MEDICAR E PART A & B xxxxxxxxxxx 2014-Present MD xxxxxxxxxxx [id number] 2014 Medicare [id number] 1950 Unknown [id number] 1950 Unknown [id number] 1950 Unknown [id number] 1949 Unknown [id number] 1949 Unknown [id number] 1949 Unknown [id number] 1949 Unknown [id number] 1950 Unknown [id number] 1950 Unknown [id number] Medicare [id number] Unknown [employer] xxxxxxxxx Effective for all dates xxxxxxxxx [id number] Unknown [id number] Social History Date Type Detail Facility Start: 10-22-2016 End: 08-04-2018 Tobacco smoking status NHIS Never smoker [facility] Start: 1950 [facility] Start: 07-08-2019 End: 02-29-2020 Alcohol intake Current non-drinker of alcohol (finding) [facility] Start: 11-10-2021 End: 05-17-2022 Exposure to SARS-CoV-2 (event) Not sure [facility] Start: 07-17-2016 End: 10-22-2016 Tobacco use and exposure Smokeless tobacco non-user [facility] Start: 10-10-2021 End: 05-27-2023 Alcohol intake Current drinker of alcohol (finding) [facility] Start: 10-10-2021 History SDOH Alcohol Comment once month [facility] Start: 08-13-2022 End: 11-25-2022 History of Social function [facility] Work Phone: Start: 08-13-2022 End: 11-25-2022 Tobacco use panel [facility] Work Phone: Adult Depression Screening Assessment 0 [facility] Work Phone: Clinical Notes 03-22-2021 to 05-29-2023 Telephone Encounter - Sandy Grace MA - 05/29/2023 4:18 PM ESTTelephone Encounter - Lana Valentin APRN.CNP - 05/29/2023 1:16 PM Adriana Lucio RT(Meng) - 05/27/2023 2:30 PM EST Note Date & Type Note Facility 05-29-2023 Miscellaneous Notes Patient is informed and referral faxed to [facility] Sandy Grace MA Referral placed to GI. She can either call [facility] or [facility] in [place]. [facility] [address] [place] [address] Appointment: [phone] Desk: [phone] Patient informed of all results and recommendations. Patient states she has not seen GI for her hiatal hernia but is willing to if Lana would like her to. Please advise. Doris Alfaro MA ----- Message from Lana Valentin APRN.NAILHEAD PUNCHER sent at 05/28/2023 1:52 PM EST ----- Labs were all stable but A1C and BS did increase slightly. Still in prediabetes. LDL is controlled but triglycerides went up slightly which is typically connected with the blood sugar. Recommend low fat and low sugar diet. ----- Message from Lana Valentin APRN.NAILHEAD PUNCHER sent at 05/28/2023 1:53 PM EST ----- Please see other result note- CXR was normal She does have a large hiatal hernia though. I do not recall but has she seen GI for this before? documented in this encounter [facility] 05-27-2023 Note HNO ID: [id number] Author: Adriana Perez RT(R) Service: ? Author Type: Technologist Type: Progress Notes Filed: 05/27/2023 3:03 PM Note Text: Radiology Service Progress Note PATIENT NAME: Jaky Heredia DATE OF SERVICE: May 27, 2023 TIME: 3:02 PM PATIENT IDENTITY VERIFICATION COMPLETED USING TWO (2) IDENTIFIERS: Name and Date of confirmed by patient verbally. FALL SCREENING: Has the patient had 2 falls in the last year or 1 fall with injury or currently using an Ambulatory Assistive Device (Walker, Cane, Wheelchair, Crutches, etc.)? No PATIENT GENDER DATA: Female. status: : No status: NO. PATIENT RELEVANT IMPLANT DATA REVIEWED: Not Applicable RADIOLOGY DEPARTMENT: General X-ray: Exam(s) Completed: Chest X-Ray PERIPHERAL IV DATA: Not applicable SIGNED BY: RT Vamshi(R) May 27, 2023 3:02 PM [facility] 05-27-2023 Note HNO ID: [id number] Author: Lana Valentin APRN.NAILHEAD PUNCHER Service: ? Author Type: Nurse Practitioner Type: Progress Notes Filed: 05/27/2023 6:11 PM Note Text: CHIEF COMPLAINT: Jaky Heredia is a 72 year old female who presents for a 2 months follow up for anxiety. She was prescribed Xanax for acute anxiety and she states it has been helping but has only had to take for 3 days. She still has a persistent dry cough since March. She completed the prednisone but didn't feel it helped much. She is using her Flovent as prescribed and uses her Albuterol as needed. She will be having surgery on her bilateral eyelids with her eye surgeon on 06/27/23. Has a form to complete. Copied from previous OV on 03/25/23: Asthma- She reports her breathing has been stable for the most part but has some days where she has some SOB. She use her Flovent and her symptoms usually resolve. She does not use the Flovent daily and prefers to use it as needed since she does not have symptoms daily. She also hasn't needed to take her Claritin recently. Anxiety- She reports her anxiety has been worse recently because her sister in law is coming up to stay with them for 6 weeks. Also, she watches her young grandson three times a day so she is worried about that as well. She states both of her neighbors are getting and are hoping she will help with their weddings. She feels very overwhelmed at times. Not sleeping well at night, will get a couple hours and then will wake up and stay up for 2-3 hours before falling asleep again. The Buspar hasn't been helping her. PAST MEDICAL HISTORY Diagnosis Date Asthma PAST SURGICAL HISTORY Procedure Laterality Date ARTHRP KNE CONDYLEANDPLATU MEDIALANDLAT COMPARTMENTS Left 07/20/2018 EXC B9 LESION MRGN XCP SK TG T/A/L 0.6-1.0 CM 1979 growth removed under right ear benign PROCEDURE 03/06/2020 parotid gland removed REMOVAL OF SKIN LESION 1969 growth removed below right ear benign REMV CATARACT EXTRACAP,INSERT LENS Bilateral 2022 TUBAL LIGATION HX 10/08/1975 Social History Tobacco Use Smoking status: Never Smokeless tobacco: Never Vaping Use Vaping Use: Never used Substance Use Topics Alcohol use: Yes Comment: once month Drug use: No ALLERGIES Allergen Reactions Amoxicillin Hives Family History Problem Relation Age of Onset Alzheimer's Disease Mother other (heart diesease) Father Cancer Maternal Aunt breast Emphysema Brother COPD Brother Current Outpatient Medications Medication Sig Dispense Refill atorvastatin (LIPITOR) 20 mg tablet take 1 tablet by mouth every day 90 tablet 1 methylPREDNISolone (MEDROL, ALEXA,) 4 mg Dose-Pack As Instructed per package 21 tablet 0 ofloxacin (OCUFLOX) 0.3 % ophthalmic solution betamethasone dipropionate, augmented (DIPROLENE) 0.05 % cream PLEASE SEE ATTACHED FOR DETAILED DIRECTIONS apremilast (OTEZLA) 30 mg tablet Take 30 mg by mouth twice daily. pantoprazole DR (PROTONIX) 20 mg tablet TAKE 1 TABLET BY MOUTH EVERY DAY 90 tablet 1 loratadine (CLARITIN) 10 mg tablet Take 1 tablet by mouth once daily as needed (for allergy symptoms). 30 tablet 2 Fluticasone Propionate (FLOVENT DISKUS) 50 mcg/actuation diskus inhaler Inhale 1 Puff as instructed twice daily. 60 Each 1 fluticasone (FLONASE) 50 mcg/actuation nasal spray SPRAY 2 SPRAYS INTO EACH NOSTRIL EVERY DAY 16 mL 1 albuterol HFA (VENTOLIN HFA) 90 mcg/actuation inhaler Inhale 2 Puffs as instructed every 6 hours as needed. 8.5 g 2 naproxen (NAPROSYN) 500 mg tablet Take 1 tablet by mouth twice daily as needed (FOR PAIN - TAKE WITH FOOD.). 60 tablet 0 diphenhydramine HCl (ALLERGY RELIEF ORAL) Take 1 tablet by mouth once daily as needed. No current facility-administered medications for this visit. Review of Systems Constitutional: Negative for chills, diaphoresis, fatigue and fever. HENT: Negative for congestion, ear pain, postnasal drip, rhinorrhea, sinus pressure and sore throat. Respiratory: Positive for cough, shortness of breath and wheezing. Negative for chest tightness. Cardiovascular: Negative for chest pain, palpitations and leg swelling. Gastrointestinal: Negative for abdominal pain, constipation, diarrhea, nausea and vomiting. GERD controlled with PPI Genitourinary: Negative. Musculoskeletal: Negative for myalgias. Skin: Negative. Neurological: Negative for dizziness, light-headedness and headaches. Psychiatric/Behavioral: Positive for sleep disturbance. The patient is nervous/anxious (stable). BP 116/74 Pulse 72 Temp 97.9 Resp 18 Ht 5' 3.25 (1.61m) Wt 186 lb (84.4kg) SpO2 97% BMI 32.67 kg/(m2). Physical Exam Vitals and nursing note reviewed. Constitutional: Appearance: She is well-groomed. HENT: Mouth/Throat: Lips: [place]. Mouth: Mucous membranes are moist. Eyes: Pupils: Pupils are equal, round, and reactive to light. Cardiovascular: Rate and Rhythm: Normal rate (more content not included)... [facility] 05-27-2023 History of Presen t illness Narrative Radiology Service Progress Note PATIENT NAME: Jaky Heredia DATE OF SERVICE: May 27, 2023 TIME: 3:02 PM PATIENT IDENTITY VERIFICATION COMPLETED USING TWO (2) IDENTIFIERS: Name and Date of confirmed by patient verbally. FALL SCREENING: Has the patient had 2 falls in the last year or 1 fall with injury or currently using an Ambulatory Assistive Device (Walker, Cane, Wheelchair, Crutches, etc.)? No PATIENT GENDER DATA: Female. status: : No status: NO. PATIENT RELEVANT IMPLANT DATA REVIEWED: Not Applicable RADIOLOGY DEPARTMENT: General X-ray: Exam(s) Completed: Chest X-Ray PERIPHERAL IV DATA: Not applicable SIGNED BY: RT Vamshi(R) May 27, 2023 3:02 PM documented in this encounter [facility] 05-27-2023 History of Presen t illness Narrative CHIEF COMPLAINT: Jaky Heredia is a 72 year old female who presents for a 2 months follow up for anxiety. She was prescribed Xanax for acute anxiety and she states it has been helping but has only had to take for 3 days. She still has a persistent dry cough since March. She completed the prednisone but didn't feel it helped much. She is using her Flovent as prescribed and uses her Albuterol as needed. She will be having surgery on her bilateral eyelids with her eye surgeon on 06/27/23. Has a form to complete. Copied from previous OV on 03/25/23: Asthma- She reports her breathing has been stable for the most part but has some days where she has some SOB. She use her Flovent and her symptoms usually resolve. She does not use the Flovent daily and prefers to use it as needed since she does not have symptoms daily. She also hasn't needed to take her Claritin recently. Anxiety- She reports her anxiety has been worse recently because her sister in law is coming up to stay with them for 6 weeks. Also, she watches her young grandson three times a day so she is worried about that as well. She states both of her neighbors are getting and are hoping she will help with their weddings. She feels very overwhelmed at times. Not sleeping well at night, will get a couple hours and then will wake up and stay up for 2-3 hours before falling asleep again. The Buspar hasn't been helping her. PAST MEDICAL HISTORY Diagnosis Date Asthma PAST SURGICAL HISTORY Procedure Laterality Date ARTHRP KNE CONDYLE&PLATU MEDIAL&LAT COMPARTMENTS Left 07/20/2018 EXC B9 LESION MRGN XCP SK TG T/A/L 0.6-1.0 CM 1979 growth removed under right ear benign PROCEDURE 03/06/2020 parotid gland removed REMOVAL OF SKIN LESION 1969 growth removed below right ear benign REMV CATARACT EXTRACAP,INSERT LENS Bilateral 2022 TUBAL LIGATION HX 10/08/1975 Social History Tobacco Use Smoking status: Never Smokeless tobacco: Never Vaping Use Vaping Use: Never used Substance Use Topics Alcohol use: Yes Comment: once month Drug use: No ALLERGIES Allergen Reactions Amoxicillin Hives Family History Problem Relation Age of Onset Alzheimer's Disease Mother other (heart diesease) Father Cancer Maternal Aunt breast Emphysema Brother COPD Brother Current Outpatient Medications Medication Sig Dispense Refill atorvastatin (LIPITOR) 20 mg tablet take 1 tablet by mouth every day 90 tablet 1 methylPREDNISolone (MEDROL, ALEXA,) 4 mg Dose-Pack As Instructed per package 21 tablet 0 ofloxacin (OCUFLOX) 0.3 % ophthalmic solution betamethasone dipropionate, augmented (DIPROLENE) 0.05 % cream PLEASE SEE ATTACHED FOR DETAILED DIRECTIONS apremilast (OTEZLA) 30 mg tablet Take 30 mg by mouth twice daily. pantoprazole DR (PROTONIX) 20 mg tablet TAKE 1 TABLET BY MOUTH EVERY DAY 90 tablet 1 loratadine (CLARITIN) 10 mg tablet Take 1 tablet by mouth once daily as needed (for allergy symptoms). 30 tablet 2 Fluticasone Propionate (FLOVENT DISKUS) 50 mcg/actuation diskus inhaler Inhale 1 Puff as instructed twice daily. 60 Each 1 fluticasone (FLONASE) 50 mcg/actuation nasal spray SPRAY 2 SPRAYS INTO EACH NOSTRIL EVERY DAY 16 mL 1 albuterol HFA (VENTOLIN HFA) 90 mcg/actuation inhaler Inhale 2 Puffs as instructed every 6 hours as needed. 8.5 g 2 naproxen (NAPROSYN) 500 mg tablet Take 1 tablet by mouth twice daily as needed (FOR PAIN - TAKE WITH FOOD.). 60 tablet 0 diphenhydramine HCl (ALLERGY RELIEF ORAL) Take 1 tablet by mouth once daily as needed. No current facility-administered medications for this visit. Review of Systems Constitutional: Negative for chills, diaphoresis, fatigue and fever. HENT: Negative for congestion, ear pain, postnasal drip, rhinorrhea, sinus pressure and sore throat. Respiratory: Positive for cough, shortness of breath and wheezing. Negative for chest tightness. Cardiovascular: Negative for chest pain, palpitations and leg swelling. Gastrointestinal: Negative for abdominal pain, constipation, diarrhea, nausea and vomiting. GERD controlled with PPI Genitourinary: Negative. Musculoskeletal: Negative for myalgias. Skin: Negative. Neurological: Negative for dizziness, light-headedness and headaches. Psychiatric/Behavioral: Positive for sleep disturbance. The patient is nervous/anxious (stable). BP 116/74 Pulse 72 Temp 97.9 Resp 18 Ht 5' 3.25 (1.61m) Wt 186 lb (84.4kg) SpO2 97% BMI 32.67 kg/(m^2). Physical Exam Vitals and nursing note reviewed. Constitutional: Appearance: She is well-groomed. HENT: Mouth/Throat: Lips: [place]. Mouth: Mucous membranes are moist. Eyes: Pupils: Pupils are equal, round, and reactive to light. Cardiovascular: Rate and Rhythm: Normal rate and regular rhythm. Heart sounds: Normal heart sounds, S1 normal and S2 normal. Pulmonary: Effort: Pulmonary effort is normal. Breath sounds: Normal breath sounds and air entry. Skin: General: Skin is warm and dry. Neurological: Mental Status: She is alert and oriented to person, place, and time. Psychiatric: Mood and Affect: Mood and affect normal. Behavior: Behavior is cooperative. Cognition and Memory: Cognition normal. ASSESSMENT/PLAN: 1. Mild intermittent asthma, uncomplicated - ICD9: 493.90, ICD10: J45.20 (primary diagnosis) - Mild intermittent asthma- persistent cough, wheezing, and SOB - No recent ER visits or hospitalizations - Increase fluticasone (FLOVENT HFA) too 100 mcg BID. Rinse after using. - Avoidance of triggers recommended - FLOVENT DISKUS 100 MCG/ACTUATION POWDER FOR INHALATION - XR CHEST 2V FRONTAL/LAT 2. Chronic cough - ICD9: 786.2, ICD10: R05.3 - XR CHEST 2V FRONTAL/LAT - BENZONATATE 100 MG CAPSULE 3. Elevated hemoglobin A1c - ICD9: 790.29, ICD10: R73.09 - HGB A1C 4. Hyperlipidemia, mixed - ICD9: 272.2, ICD10: E78.2 - Control undetermined, due for labs - Continue current medications - Counseled on healthy diet and regular exercise - LIPID PANEL BASIC - COMP METABOLIC PANEL 5. Hiatal hernia with GERD - ICD9: 553.3, 530.81, ICD10: K44.9, K21.9 - Discussed lifestyle modifications including losing weight, limiting caffeine, no meals three hours before sleep, and head of bed elevation - Continue treatment with Protonix 20 mg daily 6. Screening for deficiency anemia - ICD9: V78.1, ICD10: Z13.0 - CBC + DIFF New medication(s) prescribed today: Yes: Flovent. Discussed new medication dosage, usage, goals of therapy, and side effects. Patient has been apprised of any potential drug interactions to be aware of. Patient expresses understanding. Counseling completed in adopting health behaviors such as avoiding excessive alcohol use, avoid tobacco use, improve nutrition, and engage in physical activities. Copy of written care plan, clinical summary, treatment plan, new medications, goals, and self management requirements were given to patient. Lana Valentin APRN.CNP documented in this encounter [facility] 05-13-2023 Miscellaneous Notes Pre op form placed on signing tray Sandy Grace MA documented in this encounter [facility] 04-14-2023 Miscellaneous Notes Patient is informed Sandy Grace MA ----- Message from Lana Valentin APRN.CNP sent at 04/14/2023 9:01 AM EDT ----- Negative for Covid, flu, and RSV documented in this encounter [facility] 04-11-2023 Note HNO ID: [id number] Author: Lana Valentin APRN.CNP Service: ? Author Type: Nurse Practitioner Type: Progress Notes Filed: 04/11/2023 9:44 AM Note Text: CHIEF COMPLAINT: Jaky Heredia is a 72 year old female who presents for an acute cough, sore throat, sinus drainage, ears feel plugged, fatigue, chills/sweats, and headaches since Friday. She hasn't taken anything for her symptoms yet. She has not tested for Covid but her has a cold and he did not test either. She does have mild asthma and uses Albuterol as needed. She also take Claritin and has Flonase but hasn't been taking it recently. I reviewed past medical, surgical, social, and family histories today and updated chart. Allergies, chronic medications, and supplements were also reviewed. The history is provided by the patient. No equipment records supervisor was used. Cough This is a new problem. The current episode started 2 days ago. The problem occurs constantly. The problem has not changed since onset.The cough is Productive of sputum. There has been no fever. Associated symptoms include chills, ear congestion, headaches, rhinorrhea, sore throat, shortness of breath and wheezing. Pertinent negatives include no chest pain, no sweats, no weight loss, no ear pain, no myalgias and no eye redness. She has tried nothing for the symptoms. She is not a smoker. Her past medical history is significant for asthma. Her past medical history does not include bronchitis, pneumonia, bronchiectasis, COPD or emphysema. PAST MEDICAL HISTORY Diagnosis Date Asthma PAST SURGICAL HISTORY Procedure Laterality Date ARTHRP KNE CONDYLEANDPLATU MEDIALANDLAT COMPARTMENTS Left 07/20/2018 EXC B9 LESION MRGN XCP SK TG T/A/L 0.6-1.0 CM 1979 growth removed under right ear benign PROCEDURE 03/06/2020 parotid gland removed REMOVAL OF SKIN LESION 1970 growth removed below right ear benign TUBAL LIGATION HX 10/08/1975 Social History Tobacco Use Smoking status: Never Smokeless tobacco: Never Vaping Use Vaping Use: Never used Substance Use Topics Alcohol use: Yes Comment: once month Drug use: No ALLERGIES Allergen Reactions Amoxicillin Hives Family History Problem Relation Age of Onset Alzheimer's Disease Mother other (heart diesease) Father Cancer Maternal Aunt breast Emphysema Brother COPD Brother Current Outpatient Medications Medication Sig Dispense Refill ofloxacin (OCUFLOX) 0.3 % ophthalmic solution betamethasone dipropionate, augmented (DIPROLENE) 0.05 % cream PLEASE SEE ATTACHED FOR DETAILED DIRECTIONS apremilast (OTEZLA) 30 mg tablet Take 30 mg by mouth twice daily. ALPRAZolam (XANAX) 0.25 mg tablet Take 1 tablet by mouth twice daily as needed for anxiety or sedation for up to 28 days. [address] (PROTONIX) 20 mg tablet TAKE 1 TABLET BY MOUTH EVERY DAY 90 tablet 1 loratadine (CLARITIN) 10 mg tablet Take 1 tablet by mouth once daily as needed (for allergy symptoms). 30 tablet 2 Fluticasone Propionate (FLOVENT DISKUS) 50 mcg/actuation diskus inhaler Inhale 1 Puff as instructed twice daily. 60 Each 1 fluticasone (FLONASE) 50 mcg/actuation nasal spray SPRAY 2 SPRAYS INTO EACH NOSTRIL EVERY DAY 16 mL 1 atorvastatin (LIPITOR) 20 mg tablet TAKE 1 TABLET BY MOUTH EVERY DAY 90 tablet 1 albuterol HFA (VENTOLIN HFA) 90 mcg/actuation inhaler Inhale 2 Puffs as instructed every 6 hours as needed. 8.5 g 2 naproxen (NAPROSYN) 500 mg tablet Take 1 tablet by mouth twice daily as needed (FOR PAIN - TAKE WITH FOOD.). 60 tablet 0 diphenhydramine HCl (ALLERGY RELIEF ORAL) Take 1 tablet by mouth once daily as needed. No current facility-administered medications for this visit. Review of Systems Constitutional: Positive for chills, diaphoresis and fatigue. Negative for fever and weight loss. HENT: Positive for congestion, postnasal drip, rhinorrhea, sinus pressure and sore throat. Negative for ear pain. Eyes: Negative for redness. Respiratory: Positive for cough, shortness of breath and wheezing. Negative for chest tightness. Cardiovascular: Negative for chest pain, palpitations and leg swelling. Gastrointestinal: Positive for nausea. Negative for abdominal pain, constipation, diarrhea and vomiting. Musculoskeletal: Negative for myalgias. Neurological: Positive for headaches. Negative for dizziness and light-headedness. BP 120/76 Pulse 93 Temp 98.2 Resp 16 Ht 5' 3.25 (1.61m) Wt 195 lb (88.5kg) SpO2 98% BMI 34.25 kg/(m2). Physical Exam Vitals and nursing note reviewed. Constitutional: Appearance: She is ill-appearing. HENT: Right Ear: Tympanic membrane, ear canal and external ear normal. Left Ear: There is impacted cerumen. Nose: Congestion and rhinorrhea present. Right Sinus: Maxillary sinus tenderness present. Left Sinus: Maxillary sinus tenderness present. Mouth/Throat: Mouth: Mucous membranes are moist. Pharynx: Oropharynx is clear. (more content not included)... [facility] 04-11-2023 Instructions Lana Valentin APRN.CNP - 04/11/2023 8:17 AM EDT - Symptomatic management with rest, fluids, and analgesia as needed. - Cool mist humidifier at night. - Follow-up with PCP in 3-5 days if symptoms persist or worsen. - Go to the emergency department for fever greater than 102, neck stiffness, severe headache, drooling, signs of dehydration, chest pain, if you cough up blood, feel like you are going to pass out, or have difficulty breathing. documented in this encounter [facility] 04-11-2023 History of Presen t illness Narrative CHIEF COMPLAINT: Jaky Heredia is a 72 year old female who presents for an acute cough, sore throat, sinus drainage, ears feel plugged, fatigue, chills/sweats, and headaches since Friday. She hasn't taken anything for her symptoms yet. She has not tested for Covid but her has a cold and he did not test either. She does have mild asthma and uses Albuterol as needed. She also take Claritin and has Flonase but hasn't been taking it recently. I reviewed past medical, surgical, social, and family histories today and updated chart. Allergies, chronic medications, and supplements were also reviewed. The history is provided by the patient. No equipment records supervisor was used. Cough This is a new problem. The current episode started 2 days ago. The problem occurs constantly. The problem has not changed since onset.The cough is Productive of sputum. There has been no fever. Associated symptoms include chills, ear congestion, headaches, rhinorrhea, sore throat, shortness of breath and wheezing. Pertinent negatives include no chest pain, no sweats, no weight loss, no ear pain, no myalgias and no eye redness. She has tried nothing for the symptoms. She is not a smoker. Her past medical history is significant for asthma. Her past medical history does not include bronchitis, pneumonia, bronchiectasis, COPD or emphysema. PAST MEDICAL HISTORY Diagnosis Date Asthma PAST SURGICAL HISTORY Procedure Laterality Date ARTHRP KNE CONDYLE&PLATU MEDIAL&LAT COMPARTMENTS Left 07/20/2018 EXC B9 LESION MRGN XCP SK TG T/A/L 0.6-1.0 CM 1979 growth removed under right ear benign PROCEDURE 03/06/2020 parotid gland removed REMOVAL OF SKIN LESION 1969 growth removed below right ear benign TUBAL LIGATION HX 10/08/1975 Social History Tobacco Use Smoking status: Never Smokeless tobacco: Never Vaping Use Vaping Use: Never used Substance Use Topics Alcohol use: Yes Comment: once month Drug use: No ALLERGIES Allergen Reactions Amoxicillin Hives Family History Problem Relation Age of Onset Alzheimer's Disease Mother other (heart diesease) Father Cancer Maternal Aunt breast Emphysema Brother COPD Brother Current Outpatient Medications Medication Sig Dispense Refill ofloxacin (OCUFLOX) 0.3 % ophthalmic solution betamethasone dipropionate, augmented (DIPROLENE) 0.05 % cream PLEASE SEE ATTACHED FOR DETAILED DIRECTIONS apremilast (OTEZLA) 30 mg tablet Take 30 mg by mouth twice daily. ALPRAZolam (XANAX) 0.25 mg tablet Take 1 tablet by mouth twice daily as needed for anxiety or sedation for up to 28 days. [address] (PROTONIX) 20 mg tablet TAKE 1 TABLET BY MOUTH EVERY DAY 90 tablet 1 loratadine (CLARITIN) 10 mg tablet Take 1 tablet by mouth once daily as needed (for allergy symptoms). 30 tablet 2 Fluticasone Propionate (FLOVENT DISKUS) 50 mcg/actuation diskus inhaler Inhale 1 Puff as instructed twice daily. 60 Each 1 fluticasone (FLONASE) 50 mcg/actuation nasal spray SPRAY 2 SPRAYS INTO EACH NOSTRIL EVERY DAY 16 mL 1 atorvastatin (LIPITOR) 20 mg tablet TAKE 1 TABLET BY MOUTH EVERY DAY 90 tablet 1 albuterol HFA (VENTOLIN HFA) 90 mcg/actuation inhaler Inhale 2 Puffs as instructed every 6 hours as needed. 8.5 g 2 naproxen (NAPROSYN) 500 mg tablet Take 1 tablet by mouth twice daily as needed (FOR PAIN - TAKE WITH FOOD.). 60 tablet 0 diphenhydramine HCl (ALLERGY RELIEF ORAL) Take 1 tablet by mouth once daily as needed. No current facility-administered medications for this visit. Review of Systems Constitutional: Positive for chills, diaphoresis and fatigue. Negative for fever and weight loss. HENT: Positive for congestion, postnasal drip, rhinorrhea, sinus pressure and sore throat. Negative for ear pain. Eyes: Negative for redness. Respiratory: Positive for cough, shortness of breath and wheezing. Negative for chest tightness. Cardiovascular: Negative for chest pain, palpitations and leg swelling. Gastrointestinal: Positive for nausea. Negative for abdominal pain, constipation, diarrhea and vomiting. Musculoskeletal: Negative for myalgias. Neurological: Positive for headaches. Negative for dizziness and light-headedness. BP 120/76 Pulse 93 Temp 98.2 Resp 16 Ht 5' 3.25 (1.61m) Wt 195 lb (88.5kg) SpO2 98% BMI 34.25 kg/(m^2). Physical Exam Vitals and nursing note reviewed. Constitutional: Appearance: She is ill-appearing. HENT: Right Ear: Tympanic membrane, ear canal and external ear normal. Left Ear: There is impacted cerumen. Nose: Congestion and rhinorrhea present. Right Sinus: Maxillary sinus tenderness present. Left Sinus: Maxillary sinus tenderness present. Mouth/Throat: Mouth: Mucous membranes are moist. Pharynx: Oropharynx is clear. Uvula midline. No oropharyngeal exudate or posterior oropharyngeal erythema. Tonsils: No tonsillar exudate. Eyes: Conjunctiva/sclera: Conjunctivae normal. Pupils: Pupils are equal, round, and reactive to light. Cardiovascular: Rate and Rhythm: Normal rate and regular rhythm. Heart sounds: Normal heart sounds. Pulmonary: Effort: Pulmonary effort is normal. No respiratory distress. Breath sounds: Normal air entry. No stridor. Examination of the right-upper field reveals wheezing. Examination of the left-upper field reveals wheezing. Wheezing present. No decreased breath sounds, rhonchi or rales. Musculoskeletal: Cervical back: Neck supple. Lymphadenopathy: Cervical: No cervical adenopathy. Skin: General: Skin is warm and dry. Neurological: Mental Status: She is alert and oriented to person, place, and time. Psychiatric: Mood and Affect: Mood normal. Behavior: Behavior is cooperative. Cognition and Memory: Cognition normal. ASSESSMENT/PLAN: 1. Acute cough - ICD9: 786.2, ICD10: R05.1 (primary diagnosis) - Suspect viral URI - Conservative treatment with Mucinex DM, fluids, rest, humidifier - Symptomatic management with rest, fluids, and analgesia as needed. - Cool mist humidifier at night. - Follow-up with PCP in 3-5 days if symptoms persist or worsen. - Go to the emergency department for fever greater than 102, neck stiffness, severe headache, drooling, signs of dehydration, chest pain, if you cough up blood, feel like you are going to pass out, or have difficulty breathing. - COVID & INFLUENZA A/B & RSV NAAT, ROUTINE - COVID NAAT, UPPER RESPIRATORY, ROUTINE 2. Sore throat - ICD9: 462, ICD10: J02.9 - suspect viral - Discussed supportive care treatment with fluids, rest and analgesia. - The patient may also use OTC cough and cold meds as needed and warm salt water gargles, throat lozenges and/or OTC throat spray as needed. - Call back if drooling, increased temperature, symptoms of dehydration and/or still sick in one week - COVID & INFLUENZA A/B & RSV NAAT, ROUTINE - COVID NAAT, UPPER RESPIRATORY, ROUTINE - ROUTINE FLU A/B + RSV 3. Mild intermittent asthma with acute exacerbation - ICD9: 493.92, ICD10: J45.21 - Mild wheezing on exam today - Continue current medications- Albuterol prn and has a nebulizer at home - Avoidance of triggers recommended - Follow up in 1 week, sooner should any other issues arise. 4. Impacted cerumen of left ear - ICD9: 380.4, ICD10: H61.22 - REMOVAL OF IMPACTED CERUMEN - INSTRUMENTATION New medication(s) prescribed today: None. Counseling completed in adopting health behaviors such as avoiding excessive alcohol use, avoid tobacco use, improve nutrition, and engage in physical activities. Copy of written care plan, clinical summary, treatment plan, new medications, goals, and self management requirements were given to patient. Lana Valentin APRN.PARRIS documented in this encounter [facility] 03-25-2023 Note HNO ID: [id number] Author: Lana Valentin APRN.PARRIS Service: ? Author Type: Nurse Practitioner Type: Progress Notes Filed: 03/25/2023 12:29 PM Note Text: CHIEF COMPLAINT: Jaky Heredia is a 72 year old female who presents for a four month follow up for asthma and anxiety. I reviewed past medical, surgical, social, and family histories today and updated chart. Allergies, chronic medications, and supplements were also reviewed. Asthma- She reports her breathing has been stable for the most part but has some days where she has some SOB. She use her Flovent and her symptoms usually resolve. She does not use the Flovent daily and prefers to use it as needed since she does not have symptoms daily. She also hasn't needed to take her Claritin recently. Anxiety- She reports her anxiety has been worse recently because her sister in law is coming up to stay with them for 6 weeks. Also, she watches her young grandson three times a day so she is worried about that as well. She states both of her neighbors are getting and are hoping she will help with their weddings. She feels very overwhelmed at times. Not sleeping well at night, will get a couple hours and then will wake up and stay up for 2-3 hours before falling asleep again. The Buspar hasn't been helping her. The history is provided by the patient. No equipment records supervisor was used. PAST MEDICAL HISTORY Diagnosis Date Asthma PAST SURGICAL HISTORY Procedure Laterality Date ARTHRP KNE CONDYLEANDPLATU MEDIALANDLAT COMPARTMENTS Left 07/20/2018 EXC B9 LESION MRGN XCP SK TG T/A/L 0.6-1.0 CM 1979 growth removed under right ear benign PROCEDURE 03/06/2020 parotid gland removed REMOVAL OF SKIN LESION 1970 growth removed below right ear benign TUBAL LIGATION HX 10/08/1975 Social History Tobacco Use Smoking status: Never Smokeless tobacco: Never Vaping Use Vaping Use: Never used Substance Use Topics Alcohol use: Yes Comment: once month Drug use: No ALLERGIES Allergen Reactions Amoxicillin Hives Family History Problem Relation Age of Onset Alzheimer's Disease Mother other (heart diesease) Father Cancer Maternal Aunt breast Emphysema Brother COPD Brother Current Outpatient Medications Medication Sig Dispense Refill betamethasone dipropionate, augmented (DIPROLENE) 0.05 % cream PLEASE SEE ATTACHED FOR DETAILED DIRECTIONS apremilast (OTEZLA) 30 mg tablet Take 30 mg by mouth twice daily. pantoprazole DR (PROTONIX) 20 mg tablet TAKE 1 TABLET BY MOUTH EVERY DAY 90 tablet 1 loratadine (CLARITIN) 10 mg tablet Take 1 tablet by mouth once daily as needed (for allergy symptoms). 30 tablet 2 busPIRone (BUSPAR) 5 mg tablet TAKE 1 TABLET BY MOUTH THREE TIMES A DAY NEEDED 270 tablet 1 Fluticasone Propionate (FLOVENT DISKUS) 50 mcg/actuation diskus inhaler Inhale 1 Puff as instructed twice daily. 60 Each 1 fluticasone (FLONASE) 50 mcg/actuation nasal spray SPRAY 2 SPRAYS INTO EACH NOSTRIL EVERY DAY 16 mL 1 atorvastatin (LIPITOR) 20 mg tablet TAKE 1 TABLET BY MOUTH EVERY DAY 90 tablet 1 albuterol HFA (VENTOLIN HFA) 90 mcg/actuation inhaler Inhale 2 Puffs as instructed every 6 hours as needed. 8.5 g 2 naproxen (NAPROSYN) 500 mg tablet Take 1 tablet by mouth twice daily as needed (FOR PAIN - TAKE WITH FOOD.). 60 tablet 0 diphenhydramine HCl (ALLERGY RELIEF ORAL) Take 1 tablet by mouth once daily as needed. No current facility-administered medications for this visit. Review of Systems Constitutional: Negative for chills, diaphoresis, fatigue, fever and unexpected weight change. Respiratory: Negative for cough, chest tightness, shortness of breath and wheezing. Cardiovascular: Negative. Gastrointestinal: Negative. GERD controlled with PPI Genitourinary: Negative. Musculoskeletal: Negative. Skin: Negative. Neurological: Negative. Psychiatric/Behavioral: Positive for sleep disturbance. The patient is nervous/anxious (Buspar is not effective). BP 120/72 Pulse 83 Temp 97.7 Resp 18 Ht 5' 3.254 (1.61m) Wt 193 lb (87.5kg) SpO2 96% BMI 33.90 kg/(m2). Physical Exam Vitals and nursing note reviewed. Constitutional: Appearance: She is well-groomed. HENT: Mouth/Throat: Lips: [place]. Mouth: Mucous membranes are moist. Eyes: Pupils: Pupils are equal, round, and reactive to light. Cardiovascular: Rate and Rhythm: Normal rate and regular rhythm. Heart sounds: Normal heart sounds, S1 normal and S2 normal. Pulmonary: Effort: Pulmonary effort is normal. Breath sounds: Normal breath sounds and air entry. Skin: General: Skin is warm and dry. Neurological: Mental Status: She is alert and oriented to person, place, and time. Psychiatric: Mood and Affect: Mood and affect normal. Behavior: Behavior is cooperative. Cognition and Memory: Cognition normal. ASSESSMENT/PLAN: 1. Anxiety - ICD9: 300.00, ICD10: F41.9 (primary diagnosis) - Discussed stoppi (more content not included)... [facility] 03-25-2023 History of Presen t illness Narrative CHIEF COMPLAINT: Jaky Heredia is a 72 year old female who presents for a four month follow up for asthma and anxiety. I reviewed past medical, surgical, social, and family histories today and updated chart. Allergies, chronic medications, and supplements were also reviewed. Asthma- She reports her breathing has been stable for the most part but has some days where she has some SOB. She use her Flovent and her symptoms usually resolve. She does not use the Flovent daily and prefers to use it as needed since she does not have symptoms daily. She also hasn't needed to take her Claritin recently. Anxiety- She reports her anxiety has been worse recently because her sister in law is coming up to stay with them for 6 weeks. Also, she watches her young grandson three times a day so she is worried about that as well. She states both of her neighbors are getting and are hoping she will help with their weddings. She feels very overwhelmed at times. Not sleeping well at night, will get a couple hours and then will wake up and stay up for 2-3 hours before falling asleep again. The Buspar hasn't been helping her. The history is provided by the patient. No equipment records supervisor was used. PAST MEDICAL HISTORY Diagnosis Date Asthma PAST SURGICAL HISTORY Procedure Laterality Date ARTHRP KNE CONDYLE&PLATU MEDIAL&LAT COMPARTMENTS Left 07/20/2018 EXC B9 LESION MRGN XCP SK TG T/A/L 0.6-1.0 CM 1979 growth removed under right ear benign PROCEDURE 03/06/2020 parotid gland removed REMOVAL OF SKIN LESION 1969 growth removed below right ear benign TUBAL LIGATION HX 10/08/1975 Social History Tobacco Use Smoking status: Never Smokeless tobacco: Never Vaping Use Vaping Use: Never used Substance Use Topics Alcohol use: Yes Comment: once month Drug use: No ALLERGIES Allergen Reactions Amoxicillin Hives Family History Problem Relation Age of Onset Alzheimer's Disease Mother other (heart diesease) Father Cancer Maternal Aunt breast Emphysema Brother COPD Brother Current Outpatient Medications Medication Sig Dispense Refill betamethasone dipropionate, augmented (DIPROLENE) 0.05 % cream PLEASE SEE ATTACHED FOR DETAILED DIRECTIONS apremilast (OTEZLA) 30 mg tablet Take 30 mg by mouth twice daily. pantoprazole DR (PROTONIX) 20 mg tablet TAKE 1 TABLET BY MOUTH EVERY DAY 90 tablet 1 loratadine (CLARITIN) 10 mg tablet Take 1 tablet by mouth once daily as needed (for allergy symptoms). 30 tablet 2 busPIRone (BUSPAR) 5 mg tablet TAKE 1 TABLET BY MOUTH THREE TIMES A DAY NEEDED 270 tablet 1 Fluticasone Propionate (FLOVENT DISKUS) 50 mcg/actuation diskus inhaler Inhale 1 Puff as instructed twice daily. 60 Each 1 fluticasone (FLONASE) 50 mcg/actuation nasal spray SPRAY 2 SPRAYS INTO EACH NOSTRIL EVERY DAY 16 mL 1 atorvastatin (LIPITOR) 20 mg tablet TAKE 1 TABLET BY MOUTH EVERY DAY 90 tablet 1 albuterol HFA (VENTOLIN HFA) 90 mcg/actuation inhaler Inhale 2 Puffs as instructed every 6 hours as needed. 8.5 g 2 naproxen (NAPROSYN) 500 mg tablet Take 1 tablet by mouth twice daily as needed (FOR PAIN - TAKE WITH FOOD.). 60 tablet 0 diphenhydramine HCl (ALLERGY RELIEF ORAL) Take 1 tablet by mouth once daily as needed. No current facility-administered medications for this visit. Review of Systems Constitutional: Negative for chills, diaphoresis, fatigue, fever and unexpected weight change. Respiratory: Negative for cough, chest tightness, shortness of breath and wheezing. Cardiovascular: Negative. Gastrointestinal: Negative. GERD controlled with PPI Genitourinary: Negative. Musculoskeletal: Negative. Skin: Negative. Neurological: Negative. Psychiatric/Behavioral: Positive for sleep disturbance. The patient is nervous/anxious (Buspar is not effective). BP 120/72 Pulse 83 Temp 97.7 Resp 18 Ht 5' 3.254 (1.61m) Wt 193 lb (87.5kg) SpO2 96% BMI 33.90 kg/(m^2). Physical Exam Vitals and nursing note reviewed. Constitutional: Appearance: She is well-groomed. HENT: Mouth/Throat: Lips: [place]. Mouth: Mucous membranes are moist. Eyes: Pupils: Pupils are equal, round, and reactive to light. Cardiovascular: Rate and Rhythm: Normal rate and regular rhythm. Heart sounds: Normal heart sounds, S1 normal and S2 normal. Pulmonary: Effort: Pulmonary effort is normal. Breath sounds: Normal breath sounds and air entry. Skin: General: Skin is warm and dry. Neurological: Mental Status: She is alert and oriented to person, place, and time. Psychiatric: Mood and Affect: Mood and affect normal. Behavior: Behavior is cooperative. Cognition and Memory: Cognition normal. ASSESSMENT/PLAN: 1. Anxiety - ICD9: 300.00, ICD10: F41.9 (primary diagnosis) - Discussed stopping the Buspar and start a low dose of Xanax 0.25 mg BID as needed for a short course. She is in agreement and the side effects were discussed with her. - F/U in 2 months or sooner if needed PDMP website checked and validated. No controlled substance prescriptions were reported. 03/25/2023 by Lana Valentin APRN.NAILHEAD PUNCHER - ALPRAZOLAM 0.25 MG TABLET 2. Mild intermittent asthma without complication - ICD9: 493.90, ICD10: J45.20 - Mild intermittent asthma stable - Continue current medications - Avoidance of triggers recommended - Follow up in 6 months, sooner should any other issues arise. Some elements of above documentation were copied from my progress note of 11/25/22 and have been reexamined and updated where appropriate. All elements reflect the current assessment and medical decision making today. New medication(s) prescribed today: Yes: Xanax. Discussed new medication dosage, usage, goals of therapy, and side effects. Patient has been apprised of any potential drug interactions to be aware of. Patient expresses understanding. Counseling completed in adopting health behaviors such as avoiding excessive alcohol use, avoid tobacco use, improve nutrition, and engage in physical activities. Copy of written care plan, clinical summary, treatment plan, new medications, goals, and self management requirements were given to patient. Lana Valentin APRN.CNP documented in this encounter [facility] 01-28-2023 Miscellaneous Notes Script was sent 01/03/23 for a 3 month supply, new script not due until 04/04/23. Doris Alfaro MA documented in this encounter [facility] 01-28-2023 Miscellaneous Notes pharmacy electronically requesting refills as follows: Last seen 11/25/22 . Last refill 08/13/22 . Requested Prescriptions Pending Prescriptions Disp Refills pantoprazole DR (PROTONIX) 20 mg tablet [Pharmacy Med Name: PANTOPRAZOLE SOD DR 20 MG TAB] 90 tablet 1 Sig: TAKE 1 TABLET BY MOUTH EVERY DAY Please review and advise. Doris Alfaro MA documented in this encounter [facility] 01-03-2023 Miscellaneous Notes patient phones requesting refills as follows: Last seen 11/25/22 . Last refill 10/18/22 . Requested Prescriptions Pending Prescriptions Disp Refills loratadine (CLARITIN) 10 mg tablet 30 tablet 2 Sig: Take 1 tablet by mouth once daily as needed (for allergy symptoms). Please review and advise. Doirs Alfaro MA documented in this encounter [facility] 11-28-2022 Miscellaneous Notes Pharmacy requesting refills as follows: Last Office Visit 11/25/22. Last Refill 11/05/22. Requested Prescriptions Pending Prescriptions Disp Refills busPIRone (BUSPAR) 5 mg tablet [Pharmacy Med Name: BUSPIRONE HCL 5 MG TABLET] 90 tablet 1 Sig: TAKE 1 TABLET BY MOUTH THREE TIMES A DAY NEEDED Please review and advise. Sandy Grace MA documented in this encounter [facility] 11-25-2022 Note HNO ID: [id number] Author: Lana Valentin APRN.NAILHEAD PUNCHER Service: ? Author Type: Nurse Practitioner Type: Progress Notes Filed: 11/25/2022 2:56 PM Note Text: CHIEF COMPLAINT: Jaky Heredia is a 72 year old female who presents for 4 week f/u asthma. I reviewed past medical, surgical, social, and family histories today and updated chart. Allergies, chronic medications, and supplements were also reviewed. She was recently seen on 11/05 and was given a Medrol dose alexa and started on Flovent for her coughing, wheezing, and SOB She completed the Medrol dose alexa and was using the Flovent inhaler BID for a week and now is only using it once a day She is feeling much better Albuterol inhaler- has only used around 6 times Hasn't heard herself wheezing No coughing She is rinsing her mouth out after using the Flovent The history is provided by the patient. No equipment records supervisor was used. PAST MEDICAL HISTORY Diagnosis Date Asthma PAST SURGICAL HISTORY Procedure Laterality Date ARTHRP KNE CONDYLEANDPLATU MEDIALANDLAT COMPARTMENTS Left 07/20/2018 EXC B9 LESION MRGN XCP SK TG T/A/L 0.6-1.0 CM 1979 growth removed under right ear benign PROCEDURE 03/06/2020 parotid gland removed REMOVAL OF SKIN LESION 1969 growth removed below right ear benign TUBAL LIGATION HX 10/08/1975 Social History Tobacco Use Smoking status: Never Smokeless tobacco: Never Vaping Use Vaping Use: Never used Substance Use Topics Alcohol use: Yes Comment: once month Drug use: No ALLERGIES Allergen Reactions Amoxicillin Hives Family History Problem Relation Age of Onset Alzheimer's Disease Mother other (heart diesease) Father Cancer Maternal Aunt breast Emphysema Brother COPD Brother Current Outpatient Medications Medication Sig Dispense Refill Fluticasone Propionate (FLOVENT DISKUS) 50 mcg/actuation diskus inhaler Inhale 1 Puff as instructed twice daily. 60 Each 1 busPIRone (BUSPAR) 5 mg tablet Take 1 tablet by mouth three times daily as needed. 90 tablet 1 loratadine (CLARITIN) 10 mg tablet TAKE 1 TABLET BY MOUTH ONCE DAILY NEEDED (FOR ALLERGY SYMPTOMS). 30 tablet 2 fluticasone (FLONASE) 50 mcg/actuation nasal spray SPRAY 2 SPRAYS INTO EACH NOSTRIL EVERY DAY 16 mL 1 atorvastatin (LIPITOR) 20 mg tablet TAKE 1 TABLET BY MOUTH EVERY DAY 90 tablet 1 albuterol HFA (VENTOLIN HFA) 90 mcg/actuation inhaler Inhale 2 Puffs as instructed every 6 hours as needed. 8.[address] (PROTONIX) 20 mg tablet Take 1 tablet by mouth once daily. 90 tablet 1 naproxen (NAPROSYN) 500 mg tablet Take 1 tablet by mouth twice daily as needed (FOR PAIN - TAKE WITH FOOD.). 60 tablet 0 diphenhydramine HCl (ALLERGY RELIEF ORAL) Take 1 tablet by mouth once daily as needed. No current facility-administered medications for this visit. Review of Systems Constitutional: Negative for chills, diaphoresis, fatigue, fever and unexpected weight change. Respiratory: Negative for cough, chest tightness, shortness of breath and wheezing. Cardiovascular: Negative. Gastrointestinal: Negative. GERD controlled with PPI Genitourinary: Negative. Musculoskeletal: Negative. Neurological: Negative. Psychiatric/Behavioral: The patient is nervous/anxious (controlled with Buspar). BP 120/78 Pulse 70 Temp 98 Resp 18 Ht 5' 3.25 (1.61m) Wt 202 lb (91.6kg) SpO2 98% BMI 35.48 kg/(m2). Physical Exam Vitals and nursing note reviewed. Constitutional: Appearance: She is well-groomed. HENT: Mouth/Throat: Lips: [place]. Mouth: Mucous membranes are moist. Eyes: Pupils: Pupils are equal, round, and reactive to light. Cardiovascular: Rate and Rhythm: Normal rate and regular rhythm. Heart sounds: Normal heart sounds, S1 normal and S2 normal. Pulmonary: Effort: Pulmonary effort is normal. Breath sounds: Normal breath sounds and air entry. Musculoskeletal: Cervical back: Neck supple. Skin: General: Skin is warm and dry. Neurological: Mental Status: She is alert and oriented to person, place, and time. Psychiatric: Mood and Affect: Mood normal. Behavior: Behavior is cooperative. Cognition and Memory: Cognition normal. No visits with results within 1 Day(s) from this visit. Latest known visit with results is: Results Only on 11/05/2022 Component Date Value Ref Range Status Ventricular Rate 11/05/2022 72 BPM Preliminary Atrial Rate 11/05/2022 72 BPM Preliminary P-R Interval 11/05/2022 172 ms Preliminary QRS Duration 11/05/2022 86 ms Preliminary QT Interval 11/05/2022 376 ms Preliminary QTC Calculation ([place]) 11/05/2022 411 ms Preliminary Calculated P [place] 11/05/2022 22 degrees Preliminary Calculated R [place] 11/05/2022 45 degrees Preliminary Calculated T [place] 11/05/2022 28 degrees Preliminary ASSESSMENT/PLAN: 1. Mild intermittent asthma without complication - ICD9: 493.90, ICD10: J45.20 (primary diagnosis) Mild intermittent Asthma improved - (more content not included)... [facility] 11-25-2022 History of Presen t illness Narrative CHIEF COMPLAINT: Jaky Heredia is a 72 year old female who presents for 4 week f/u asthma. I reviewed past medical, surgical, social, and family histories today and updated chart. Allergies, chronic medications, and supplements were also reviewed. She was recently seen on 11/05 and was given a Medrol dose alexa and started on Flovent for her coughing, wheezing, and SOB She completed the Medrol dose alexa and was using the Flovent inhaler BID for a week and now is only using it once a day She is feeling much better Albuterol inhaler- has only used around 6 times Hasn't heard herself wheezing No coughing She is rinsing her mouth out after using the Flovent The history is provided by the patient. No equipment records supervisor was used. PAST MEDICAL HISTORY Diagnosis Date Asthma PAST SURGICAL HISTORY Procedure Laterality Date ARTHRP KNE CONDYLE&PLATU MEDIAL&LAT COMPARTMENTS Left 07/20/2018 EXC B9 LESION MRGN XCP SK TG T/A/L 0.6-1.0 CM 1979 growth removed under right ear benign PROCEDURE 03/06/2020 parotid gland removed REMOVAL OF SKIN LESION 1970 growth removed below right ear benign TUBAL LIGATION HX 10/08/1975 Social History Tobacco Use Smoking status: Never Smokeless tobacco: Never Vaping Use Vaping Use: Never used Substance Use Topics Alcohol use: Yes Comment: once month Drug use: No ALLERGIES Allergen Reactions Amoxicillin Hives Family History Problem Relation Age of Onset Alzheimer's Disease Mother other (heart diesease) Father Cancer Maternal Aunt breast Emphysema Brother COPD Brother Current Outpatient Medications Medication Sig Dispense Refill Fluticasone Propionate (FLOVENT DISKUS) 50 mcg/actuation diskus inhaler Inhale 1 Puff as instructed twice daily. 60 Each 1 busPIRone (BUSPAR) 5 mg tablet Take 1 tablet by mouth three times daily as needed. 90 tablet 1 loratadine (CLARITIN) 10 mg tablet TAKE 1 TABLET BY MOUTH ONCE DAILY NEEDED (FOR ALLERGY SYMPTOMS). 30 tablet 2 fluticasone (FLONASE) 50 mcg/actuation nasal spray SPRAY 2 SPRAYS INTO EACH NOSTRIL EVERY DAY 16 mL 1 atorvastatin (LIPITOR) 20 mg tablet TAKE 1 TABLET BY MOUTH EVERY DAY 90 tablet 1 albuterol HFA (VENTOLIN HFA) 90 mcg/actuation inhaler Inhale 2 Puffs as instructed every 6 hours as needed. 8.[address] (PROTONIX) 20 mg tablet Take 1 tablet by mouth once daily. 90 tablet 1 naproxen (NAPROSYN) 500 mg tablet Take 1 tablet by mouth twice daily as needed (FOR PAIN - TAKE WITH FOOD.). 60 tablet 0 diphenhydramine HCl (ALLERGY RELIEF ORAL) Take 1 tablet by mouth once daily as needed. No current facility-administered medications for this visit. Review of Systems Constitutional: Negative for chills, diaphoresis, fatigue, fever and unexpected weight change. Respiratory: Negative for cough, chest tightness, shortness of breath and wheezing. Cardiovascular: Negative. Gastrointestinal: Negative. GERD controlled with PPI Genitourinary: Negative. Musculoskeletal: Negative. Neurological: Negative. Psychiatric/Behavioral: The patient is nervous/anxious (controlled with Buspar). BP 120/78 Pulse 70 Temp 98 Resp 18 Ht 5' 3.25 (1.61m) Wt 202 lb (91.6kg) SpO2 98% BMI 35.48 kg/(m^2). Physical Exam Vitals and nursing note reviewed. Constitutional: Appearance: She is well-groomed. HENT: Mouth/Throat: Lips: [place]. Mouth: Mucous membranes are moist. Eyes: Pupils: Pupils are equal, round, and reactive to light. Cardiovascular: Rate and Rhythm: Normal rate and regular rhythm. Heart sounds: Normal heart sounds, S1 normal and S2 normal. Pulmonary: Effort: Pulmonary effort is normal. Breath sounds: Normal breath sounds and air entry. Musculoskeletal: Cervical back: Neck supple. Skin: General: Skin is warm and dry. Neurological: Mental Status: She is alert and oriented to person, place, and time. Psychiatric: Mood and Affect: Mood normal. Behavior: Behavior is cooperative. Cognition and Memory: Cognition normal. No visits with results within 1 Day(s) from this visit. Latest known visit with results is: Results Only on 11/05/2022 Component Date Value Ref Range Status Ventricular Rate 11/05/2022 72 BPM Preliminary Atrial Rate 11/05/2022 72 BPM Preliminary P-R Interval 11/05/2022 172 ms Preliminary QRS Duration 11/05/2022 86 ms Preliminary QT Interval 11/05/2022 376 ms Preliminary QTC Calculation (Bazett) 11/05/2022 411 ms Preliminary Calculated P [place] 11/05/2022 22 degrees Preliminary Calculated R [place] 11/05/2022 45 degrees Preliminary Calculated T [place] 11/05/2022 28 degrees Preliminary ASSESSMENT/PLAN: 1. Mild intermittent asthma without complication - ICD9: 493.90, ICD10: J45.20 (primary diagnosis) Mild intermittent Asthma improved - Continue current meds - Continue Flovent: 50 mcg 1 puff 1-2 times daily - Avoidance of triggers recommended - Follow up in 4 months 2. Anxiety - ICD9: 300.00, ICD10: F41.9 - Stable on Buspar 3. Hiatal hernia with GERD - ICD9: 553.3, 530.81, ICD10: K44.9, K21.9 - Continue treatment with Protonix 20 mg daily New medication(s) prescribed today: None. Counseling completed in adopting health behaviors such as avoiding excessive alcohol use, avoid tobacco use, improve nutrition, and engage in physical activities. Copy of written care plan, clinical summary, treatment plan, new medications, goals, and self management requirements were given to patient. Lana Valentin APRN.PARRIS documented in this encounter [facility] 11-15-2022 Miscellaneous Notes Has been filled with refill documented in this encounter [facility] 11-07-2022 Miscellaneous Notes Left message informing patient of results. Doris Alfaro MA ----- Message from Lana Valentin APRN.NAILHEAD PUNCHER sent at 11/07/2022 8:07 AM EDT ----- EKG was normal. documented in this encounter [facility] 11-05-2022 Note HNO ID: [id number] Author: Lana Valentin APRN.PARRIS Service: ? Author Type: Nurse Practitioner Type: Progress Notes Filed: 11/05/2022 11:53 AM Note Text: CHIEF COMPLAINT: Jaky Heredia is a 72 year old female who presents for a 3 month f/u for asthma and anxiety. I reviewed past medical, surgical, social, and family histories today and updated chart. Allergies, chronic medications, and supplements were also reviewed. Still coughing a lot Wheezing throughout the day and is using the Albuterol as needed, usually twice daily Dry cough Claritin and Flonase help some Breathing does not wake her up and she hasn't had any ER visits/hospitalizations Tends to be worse in the morning She states her has a nebulizer and Albuterol solution at home but she hasn't used it yet Taking her Buspar two times a day and feels that it helps a little Neighbors are still asking her for help a lot The history is provided by the patient. No equipment records supervisor was used. Asthma The current episode started more than 1 month ago. The problem occurs daily. The problem has been waxing and waning. Associated symptoms include coughing and fatigue. Pertinent negatives include no abdominal pain, chest pain, chills, congestion, diaphoresis, fever, headaches, nausea, sore throat, swollen glands, vomiting or weakness. The symptoms are aggravated by exertion. Treatments tried: Albuterol inhaler. Anxiety Pertinent negatives include no agitation, confusion, delusions, hallucinations, intoxication, loss of consciousness, seizures, self-injury, somnolence, violence or weakness. The current episode started more than 1 month ago. The problem has been gradually improving since onset. Pertinent negatives include no fever, nausea or vomiting. PAST MEDICAL HISTORY Diagnosis Date Asthma PAST SURGICAL HISTORY Procedure Laterality Date ARTHRP KNE CONDYLEANDPLATU MEDIALANDLAT COMPARTMENTS Left 07/20/2018 EXC B9 LESION MRGN XCP SK TG T/A/L 0.6-1.0 CM 1979 growth removed under right ear benign PROCEDURE 03/06/2020 parotid gland removed REMOVAL OF SKIN LESION 1969 growth removed below right ear benign TUBAL LIGATION HX 10/08/1975 Social History Tobacco Use Smoking status: Never Smokeless tobacco: Never Vaping Use Vaping Use: Never used Substance Use Topics Alcohol use: Yes Comment: once month Drug use: No ALLERGIES Allergen Reactions Amoxicillin Hives Family History Problem Relation Age of Onset Alzheimer's Disease Mother other (heart diesease) Father Cancer Maternal Aunt breast Emphysema Brother COPD Brother Current Outpatient Medications Medication Sig Dispense Refill loratadine (CLARITIN) 10 mg tablet TAKE 1 TABLET BY MOUTH ONCE DAILY NEEDED (FOR ALLERGY SYMPTOMS). 30 tablet 2 fluticasone (FLONASE) 50 mcg/actuation nasal spray SPRAY 2 SPRAYS INTO EACH NOSTRIL EVERY DAY 16 mL 1 atorvastatin (LIPITOR) 20 mg tablet TAKE 1 TABLET BY MOUTH EVERY DAY 90 tablet 1 albuterol HFA (VENTOLIN HFA) 90 mcg/actuation inhaler Inhale 2 Puffs as instructed every 6 hours as needed. 8.[address] (PROTONIX) 20 mg tablet Take 1 tablet by mouth once daily. 90 tablet 1 naproxen (NAPROSYN) 500 mg tablet Take 1 tablet by mouth twice daily as needed (FOR PAIN - TAKE WITH FOOD.). 60 tablet 0 diphenhydramine HCl (ALLERGY RELIEF ORAL) Take 1 tablet by mouth once daily as needed. busPIRone (BUSPAR) 5 mg tablet Take 1 tablet by mouth twice daily as needed. 60 tablet 2 benzonatate (TESSALON PERLES) 100 mg capsule Take 1 capsule by mouth three times daily as needed for cough. (Patient not taking: Reported on 11/05/2022) 30 capsule 0 No current facility-administered medications for this visit. Review of Systems Constitutional: Positive for fatigue. Negative for appetite change, chills, diaphoresis, fever and unexpected weight change. HENT: Positive for postnasal drip and sneezing. Negative for congestion, ear pain, rhinorrhea, sinus pressure, sinus pain, sore throat and tinnitus. Eyes: Negative for visual disturbance. Respiratory: Positive for cough, chest tightness, shortness of breath (with exertion) and wheezing. Cardiovascular: Negative for chest pain, palpitations and leg swelling. Gastrointestinal: Negative for abdominal pain, diarrhea, nausea and vomiting. Endocrine: Negative. Genitourinary: Negative. Musculoskeletal: Negative. Skin: Negative. Neurological: Negative for dizziness, seizures, loss of consciousness, weakness, light-headedness and headaches. Psychiatric/Behavioral: Positive for sleep disturbance. Negative for agitation, confusion, hallucinations and self-injury. The patient is nervous/anxious. BP 122/76 Pulse 72 Temp 97.4 Resp 18 Ht 5' 3.25 (1.61m) Wt 200 lb (90.7kg) SpO2 99% BMI 35.13 kg/(m2). Physical Exam Vitals and nursing note reviewed. Constitutional: Appearance: Normal appearance. She is well (more content not included)... [facility] 10-18-2022 Miscellaneous Notes pharmacy electronically requesting refills as follows: Last seen 08/13/22 . Last refill 09/25/22 . Requested Prescriptions Pending Prescriptions Disp Refills fluticasone (FLONASE) 50 mcg/actuation nasal spray [Pharmacy Med Name: FLUTICASONE PROP 50 MCG SPRAY] 16 mL 1 Sig: SPRAY 2 SPRAYS INTO EACH NOSTRIL EVERY DAY Please review and advise. Doris Alfaro MA documented in this encounter [facility] 10-17-2022 Miscellaneous Notes Pharmacy requesting refills as follows: Last Office Visit 08/13/22. Last Refill 05/14/22. Requested Prescriptions Pending Prescriptions Disp Refills atorvastatin (LIPITOR) 20 mg tablet [Pharmacy Med Name: ATORVASTATIN 20 MG TABLET] 90 tablet 1 Sig: TAKE 1 TABLET BY MOUTH EVERY DAY Please review and advise. Sandy Grace MA documented in this encounter [facility] 09-24-2022 Miscellaneous Notes Patient states that she just doesn't know what to do to get over this cough and is having cough medicine robitussin everyday if she doesn't she has just a hard cough. Patient would like to know if you can send in anything else for the cough. Sandy Grace MA ----- Message from Lana Valentin APRN.NAILHEAD PUNCHER sent at 09/23/2022 4:18 PM EST ----- PFTs did not show any obstruction such as with COPD but there was some restriction indicating mild asthma however there wasn't much improvement with the bronchodilator Albuterol. Compared to her previous PFTs there was no significant change. documented in this encounter [facility] 09-18-2022 Note HNO ID: [id number] Author: Jennie Rankin RRT Service: ? Author Type: Registered Resp Therapist Type: Progress Notes Filed: 09/18/2022 9:16 AM Note Text: PULM FUNCTION SMARTBLOCK: Provider: Lenin Villeda MD Assisting Tech: Jennie Rankin RRT Spirometry w/BD: 1 DLCO: 1 LV - Gas: 1 [facility] 09-18-2022 History of Presen t illness Narrative PULM FUNCTION SMARTBLOCK: Provider: Lenin Villeda MD Assisting Tech: Jennie Rankin RRT Spirometry w/BD: 1 DLCO: 1 LV - Gas: 1 documented in this encounter [facility] 08-26-2022 Miscellaneous Notes Left message on patients vm with all information. (Ok per lifetime consent). Kristal Basilio MA ----- Message from Lana Valentin APRN.CNP sent at 08/26/2022 11:39 AM EST ----- Lipid panel has significantly improved. Continue Lipitor at current dose. documented in this encounter [facility] 08-19-2022 Miscellaneous Notes Patient is informed Sandy Grace MA Order for fasting lipid panel placed. ----- Message from Kristal Basilio MA sent at 05/14/2022 11:08 AM EDT ----- Remind pt. Time to recheck lipid panel after starting medication. Kristal Basilio MA documented in this encounter [facility] 08-13-2022 Instructions Lana Valentin APRN.CNP - 08/13/2022 4:36 PM EST [facility] Cardiac testing, Sleep services, and pulmonary testing, please jong [phone] documented in this encounter [facility] 08-13-2022 History of Presen t illness Narrative CHIEF COMPLAINT: Jaky Heredia is a 71 year old female who presents for persistent URI symptoms including SOB, cough, and chest tightness. I reviewed past medical, surgical, social, and family histories today and updated chart. Allergies, chronic medications, and supplements were also reviewed. She reports her symptoms initially started back in the middle of June and she was seen here and treated with Doxycycline. She felt slightly better but then her symptoms returned and she was seen at an urgent care and was treated with a Zpak and Prednisone. She states the prednisone made her feel better but as soon as she came off of it then she started feeling worse again. She reports having a history of asthma since she was 7 but has been mostly controlled her whole life. She never smoked but had an extensive exposure to second hand smoke as a child. She has been taking Robitussin for her cough. She will have some SOB with exertion- vacuuming, laundry. Denies any CP, dizziness, palpitations. The history is provided by the patient. No equipment records supervisor was used. URI She complains of chest tightness, cough, shortness of breath and wheezing. There is no difficulty breathing, frequent throat clearing, hemoptysis, hoarse voice or sputum production. The current episode started more than 1 month ago. The problem occurs intermittently. The problem has been waxing and waning. The cough is non-productive. Associated symptoms include dyspnea on exertion and headaches (with coughing). Pertinent negatives include no appetite change, chest pain, ear congestion, ear pain, fever, heartburn, malaise/fatigue, myalgias, nasal congestion, orthopnea, PND, postnasal drip, rhinorrhea, sneezing, sore throat, sweats, trouble swallowing or weight loss. Her symptoms are aggravated by strenuous activity. Her symptoms are alleviated by OTC cough suppressant. She reports minimal improvement on treatment. Her symptoms are not alleviated by oral steroids. There are no known risk factors for lung disease. Her past medical history is significant for asthma. There is no history of bronchiectasis, bronchitis, COPD, emphysema or pneumonia. PAST MEDICAL HISTORY Diagnosis Date Asthma PAST SURGICAL HISTORY Procedure Laterality Date ARTHRP KNE CONDYLE&PLATU MEDIAL&LAT COMPARTMENTS Left 07/20/2018 EXC B9 LESION MRGN XCP SK TG T/A/L 0.6-1.0 CM 1979 growth removed under right ear benign PROCEDURE 03/06/2020 parotid gland removed REMOVAL OF SKIN LESION 1970 growth removed below right ear benign TUBAL LIGATION HX 10/08/1975 Social History Tobacco Use Smoking status: Never Smokeless tobacco: Never Vaping Use Vaping Use: Never used Substance Use Topics Alcohol use: Yes Comment: once month Drug use: No ALLERGIES Allergen Reactions Amoxicillin Hives Family History Problem Relation Age of Onset Alzheimer's Disease Mother other (heart diesease) Father Cancer Maternal Aunt breast Emphysema Brother COPD Brother Current Outpatient Medications Medication Sig Dispense Refill atorvastatin (LIPITOR) 20 mg tablet Take 1 tablet by mouth once daily. 90 tablet 1 busPIRone (BUSPAR) 5 mg tablet Take 1 tablet by mouth twice daily as needed. 60 tablet 2 naproxen (NAPROSYN) 500 mg tablet Take 1 tablet by mouth twice daily as needed (FOR PAIN - TAKE WITH FOOD.). 60 tablet 0 diphenhydramine HCl (ALLERGY RELIEF ORAL) Take 1 tablet by mouth once daily as needed. albuterol HFA (VENTOLIN HFA) 90 mcg/actuation inhaler Inhale 2 Puffs as instructed every 6 hours as needed. 8.[address] (PROTONIX) 20 mg tablet Take 1 tablet by mouth once daily. 90 tablet 1 predniSONE (DELTASONE) 20 mg tablet Take 2 tablets by mouth once daily for 5 days. 10 tablet 0 No current facility-administered medications for this visit. Review of Systems Constitutional: Positive for fatigue. Negative for appetite change, chills, diaphoresis, fever, malaise/fatigue, unexpected weight change and weight loss. HENT: Negative for ear pain, hoarse voice, postnasal drip, rhinorrhea, sneezing, sore throat and trouble swallowing. Eyes: Negative for visual disturbance. Respiratory: Positive for cough, chest tightness, shortness of breath and wheezing. Negative for hemoptysis and sputum production. Cardiovascular: Positive for dyspnea on exertion. Negative for chest pain, palpitations, leg swelling and PND. Gastrointestinal: Negative for abdominal pain, diarrhea, heartburn, nausea and vomiting. Genitourinary: Negative. Musculoskeletal: Negative for myalgias. Skin: Negative. Neurological: Positive for headaches (with coughing). Negative for dizziness and light-headedness. BP 134/80 Pulse 76 Temp 97.9 Resp 18 Ht 5' 3.25 (1.61m) Wt 193 lb (87.5kg) SpO2 97% BMI 33.90 kg/(m^2). Physical Exam Vitals and nursing note reviewed. Constitutional: Appearance: Normal appearance. She is well-groomed. She is not ill-appearing. HENT: Right Ear: Tympanic membrane, ear canal and external ear normal. Nose: Nose normal. Mouth/Throat: Mouth: Mucous membranes are moist. Eyes: Pupils: Pupils are equal, round, and reactive to light. Cardiovascular: Rate and Rhythm: Normal rate and regular rhythm. Heart sounds: Normal heart sounds, S1 normal and S2 normal. No murmur heard. Pulmonary: Effort: Pulmonary effort is normal. No accessory muscle usage or respiratory distress. Breath sounds: Normal air entry. No stridor. Examination of the right-upper field reveals wheezing. Examination of the right-middle field reveals wheezing. Wheezing present. No decreased breath sounds, rhonchi or rales. Skin: General: Skin is warm and dry. Neurological: Mental Status: She is alert and oriented to person, place, and time. Psychiatric: Mood and Affect: Mood and affect normal. Speech: Speech normal. Behavior: Behavior is cooperative. Cognition and Memory: Cognition normal. ASSESSMENT/PLAN: 1. Mild intermittent asthma with acute exacerbation - ICD9: 493.92, ICD10: J45.21 (primary diagnosis) Mild intermittent Asthma acute excacerbation no respiratory distress - Continue current meds - Exacerbation treatment of Prednisone burst- see orders - Recheck PFTs. Last ones completed in 2019 showed mild asthma. She is only on Albuterol prn. May need daily inhaler if PFTs worsen. - Avoidance of triggers recommended - Asthma education of Reviewed signs and symptoms, Monitoring of control by symptoms, and environmental control: avoidance of precipitants - Follow up in 2 weeks PRN if symptoms persist - SPIROMETRY - BASELINE AND POST DILATOR - LUNG DIFFUSION CAPACITY (DLCO) - LUNG VOLUMES - PREDNISONE 20 MG TABLET 2. SOB (shortness of breath) - ICD9: 786.05, ICD10: R06.02 - ALBUTEROL SULFATE HFA 90 MCG/ACTUATION AEROSOL INHALER - XR CHEST 2V FRONTAL/LAT - SPIROMETRY - BASELINE AND POST DILATOR - LUNG DIFFUSION CAPACITY (DLCO) - LUNG VOLUMES 3. Persistent cough - ICD9: 786.2, ICD10: R05.3 - XR CHEST 2V FRONTAL/LAT 4. Hiatal hernia with GERD - ICD9: 553.3, 530.81, ICD10: K44.9, K21.9 - PANTOPRAZOLE 20 MG TABLET,DELAYED RELEASE 5. Screening for depression - ICD9: V79.0, ICD10: Z13.31 - No risk - DEPRESSION SCREENING/ASSESSMENT New medication(s) prescribed today: Yes: Prednisone. Discussed new medication dosage, usage, goals of therapy, and side effects. Patient has been apprised of any potential drug interactions to be aware of. Patient expresses understanding. Counseling completed in adopting health behaviors such as avoiding excessive alcohol use, avoid tobacco use, improve nutrition, and engage in physical activities. Copy of written care plan, clinical summary, treatment plan, new medications, goals, and self management requirements were given to patient. Lana Valentin APRN.PARRIS documented in this encounter [facility] 07-10-2022 History of Presen t illness Narrative This note was created using Tapast[employer]. Subjective Jaky Heredia is a 71 year old female here today for sick visit. I reviewed past medical, surgical, social, and family histories today and updated chart. Allergies, chronic medications, and supplements were also reviewed. Symptoms started 3 weeks ago Nasal congestion and sinus pressure is getting worse Still coughing a little No ear pain No fevers gloria Carmona Took a couple of COVID tests at home and they were negative PAST MEDICAL HISTORY Diagnosis Date Asthma PAST SURGICAL HISTORY Procedure Laterality Date ARTHRP KNE CONDYLE&PLATU MEDIAL&LAT COMPARTMENTS Left 07/20/2018 EXC B9 LESION MRGN XCP SK TG T/A/L 0.6-1.0 CM 1979 growth removed under right ear benign PROCEDURE 03/06/2020 parotid gland removed REMOVAL OF SKIN LESION 1970 growth removed below right ear benign TUBAL LIGATION HX 10/08/1975 ALLERGIES Amoxicillin MEDICATIONS atorvastatin (LIPITOR) 20 mg tablet Take 1 tablet by mouth once daily. busPIRone (BUSPAR) 5 mg tablet Take 1 tablet by mouth twice daily as needed. pantoprazole DR (PROTONIX) 20 mg tablet Take 1 tablet by mouth once daily. naproxen (NAPROSYN) 500 mg tablet Take 1 tablet by mouth twice daily as needed (FOR PAIN - TAKE WITH FOOD.). diphenhydramine HCl (ALLERGY RELIEF ORAL) Take 1 tablet by mouth once daily as needed. albuterol HFA (VENTOLIN HFA) 90 mcg/actuation inhaler Inhale 2 Puffs as instructed every 6 hours as needed. predniSONE (DELTASONE) 20 mg tablet 3 tablets by mouth for 3 days, 2 tablets by mouth For 3 days, 1 tablet by mouth For 3 days, then stop. (Patient not taking: Reported on 07/10/2022) FAMILY HISTORY Problem Relation Age of Onset Alzheimer's Disease Mother other (heart diesease) Father Cancer Maternal Aunt breast Emphysema Brother COPD Brother Social History Tobacco Use Smoking status: Never Smokeless tobacco: Never Vaping Use Vaping Use: Never used Substance Use Topics Alcohol use: Yes Comment: once month Drug use: No Review of Systems Constitutional: Negative for appetite change, chills, fatigue, fever and unexpected weight change. HENT: Positive for congestion, postnasal drip and rhinorrhea. Negative for ear pain and sore throat. Eyes: Negative for pain, discharge, itching and visual disturbance. Respiratory: Positive for cough and wheezing (occasional, mild). Negative for shortness of breath. Cardiovascular: Negative for chest pain, palpitations and leg swelling. Gastrointestinal: Negative for abdominal pain, constipation, diarrhea, nausea and vomiting. Genitourinary: Negative for difficulty urinating. Musculoskeletal: Negative for arthralgias. Skin: Negative for rash. Neurological: Positive for headaches. Negative for dizziness, tremors and weakness. Psychiatric/Behavioral: Negative for dysphoric mood and sleep disturbance. The patient is not nervous/anxious. Objective BP 146/82 Pulse 85 Temp 36.4 C (97.5 F) Ht 160.7 cm (5' 3.25 ) Wt 87.5 kg (193 lb) SpO2 98% BMI 33.92 kg/m Physical Exam Constitutional: General: She is not in acute distress. Appearance: She is well-developed. She is not toxic-appearing. HENT: Head: Normocephalic and atraumatic. Right Ear: Hearing, tympanic membrane, ear canal and external ear normal. No drainage. Tympanic membrane is not injected or bulging. Left Ear: Hearing, tympanic membrane, ear canal and external ear normal. No drainage. Tympanic membrane is not injected or bulging. Nose: Mucosal edema and rhinorrhea present. Rhinorrhea is purulent. Right Turbinates: Enlarged. Left Turbinates: Enlarged. Right Sinus: Frontal sinus tenderness present. No maxillary sinus tenderness. Left Sinus: Frontal sinus tenderness present. No maxillary sinus tenderness. Mouth/Throat: Lips: [place]. Mouth: Mucous membranes are moist. No oral lesions. Pharynx: Oropharynx is clear. Uvula midline. No oropharyngeal exudate or posterior oropharyngeal erythema. Eyes: General: Lids are normal. Right eye: No discharge. Left eye: No discharge. Conjunctiva/sclera: Conjunctivae normal. Pupils: Pupils are equal, round, and reactive to light. Cardiovascular: Rate and Rhythm: Normal rate and regular rhythm. Heart sounds: Normal heart sounds. No murmur heard. Pulmonary: Effort: Pulmonary effort is normal. Breath sounds: Normal breath sounds. No wheezing, rhonchi or rales. Musculoskeletal: Cervical back: Normal range of motion and neck supple. Lymphadenopathy: Head: Right side of head: No tonsillar, preauricular or posterior auricular adenopathy. Left side of head: No tonsillar, preauricular or posterior auricular adenopathy. Cervical: No cervical adenopathy. Upper Body: Right upper body: No supraclavicular adenopathy. Left upper body: No supraclavicular adenopathy. Skin: General: Skin is warm and dry. Findings: No bruising or rash. Neurological: General: No focal deficit present. Mental Status: She is alert and oriented to person, place, and time. Cranial Nerves: No cranial nerve deficit. Psychiatric: Mood and Affect: Mood and affect normal. Speech: Speech normal. Behavior: Behavior normal. Behavior is cooperative. ASSESSMENT/PLAN: 1. Acute non-recurrent frontal sinusitis - ICD9: 461.1, ICD10: J01.10 - Will begin treatment with as per antibiotic as written, see orders - The patient should also be given OTC decongestants prn for the first 5-7 days of treatment. - Supportive care with plenty of fluids, rest, and analgesia prn. - Follow up in 3-5 days if symptoms persist or worsen. - DOXYCYCLINE HYCLATE 100 MG CAPSULE Laurel Brooks APRN.NAILHEAD PUNCHER documented in this encounter [facility] 05-29-2022 Miscellaneous Notes Pharm requesting refills: Last office visit 05/17/2022. Last refill on 05/07/2022 has 2 refills denied rx . Requested Prescriptions Pending Prescriptions Disp Refills busPIRone (BUSPAR) 5 mg tablet [Pharmacy Med Name: BUSPIRONE HCL 5 MG TABLET] 60 tablet 2 Sig: TAKE 1 TABLET BY MOUTH TWICE A DAY NEEDED Please review and advise. Kristal Basilio MA documented in this encounter [facility] 05-17-2022 History of Presen t illness Narrative This note was created using [employer]. Subjective Jaky Heredia is a 71 year old female here today for acute visit cough. I reviewed past medical, surgical, social, and family histories today and updated chart. Allergies, chronic medications, and supplements were also reviewed. Started last with sneezing Then cough Cough is worse laying down Coughing up yellow sputum Chest is feeling tight Not around any sick contacts She took a COVID test and it was negative She has asthma She has albuterol inhaler at home but has not needed to use it yet PAST MEDICAL HISTORY Diagnosis Date Asthma PAST SURGICAL HISTORY Procedure Laterality Date ARTHRP KNE CONDYLE&PLATU MEDIAL&LAT COMPARTMENTS Left 07/20/2018 EXC B9 LESION MRGN XCP SK TG T/A/L 0.6-1.0 CM 1979 growth removed under right ear benign PROCEDURE 03/06/2020 parotid gland removed REMOVAL OF SKIN LESION 1970 growth removed below right ear benign TUBAL LIGATION HX 10/08/1975 ALLERGIES Amoxicillin MEDICATIONS atorvastatin (LIPITOR) 20 mg tablet Take 1 tablet by mouth once daily. busPIRone (BUSPAR) 5 mg tablet Take 1 tablet by mouth twice daily as needed. pantoprazole DR (PROTONIX) 20 mg tablet Take 1 tablet by mouth once daily. naproxen (NAPROSYN) 500 mg tablet Take 1 tablet by mouth twice daily as needed (FOR PAIN - TAKE WITH FOOD.). diphenhydramine HCl (ALLERGY RELIEF ORAL) Take 1 tablet by mouth once daily as needed. albuterol HFA (VENTOLIN HFA) 90 mcg/actuation inhaler Inhale 2 Puffs as instructed every 6 hours as needed. FAMILY HISTORY Problem Relation Age of Onset Alzheimer's Disease Mother other (heart diesease) Father Cancer Maternal Aunt breast Emphysema Brother COPD Brother Social History Tobacco Use Smoking status: Never Smokeless tobacco: Never Vaping Use Vaping Use: Never used Substance Use Topics Alcohol use: Yes Comment: once month Drug use: No Review of Systems Constitutional: Positive for chills and fatigue (yesterday). Negative for appetite change, fever and unexpected weight change. HENT: Positive for congestion, rhinorrhea (getting better\) and sneezing. Negative for ear pain, postnasal drip and sore throat. Eyes: Negative for pain, discharge, itching and visual disturbance. Respiratory: Positive for cough, chest tightness, shortness of breath and wheezing. Cardiovascular: Negative for chest pain, palpitations and leg swelling. Gastrointestinal: Negative for abdominal pain, constipation, diarrhea, nausea and vomiting. Genitourinary: Negative for difficulty urinating. Musculoskeletal: Negative for arthralgias. Skin: Negative for rash. Neurological: Positive for dizziness. Negative for tremors, weakness and headaches. Psychiatric/Behavioral: Negative for dysphoric mood and sleep disturbance. The patient is not nervous/anxious. Objective BP 124/76 Pulse 74 Temp 36.8 C (98.3 F) Ht 160.7 cm (5' 3.25 ) Wt 88 kg (194 lb) SpO2 96% BMI 34.09 kg/m Physical Exam Constitutional: General: She is not in acute distress. Appearance: She is well-developed. She is not toxic-appearing. HENT: Head: Normocephalic and atraumatic. Right Ear: Hearing, tympanic membrane, ear canal and external ear normal. No drainage. Tympanic membrane is not injected or bulging. Left Ear: Hearing, tympanic membrane, ear canal and external ear normal. No drainage. Tympanic membrane is not injected or bulging. Nose: Mucosal edema present. No rhinorrhea. Comments: Nasal erythema Mouth/Throat: Lips: [place]. Mouth: Mucous membranes are moist. No oral lesions. Pharynx: Oropharynx is clear. Uvula midline. No oropharyngeal exudate or posterior oropharyngeal erythema. Eyes: General: Lids are normal. Right eye: No discharge. Left eye: No discharge. Conjunctiva/sclera: Conjunctivae normal. Pupils: Pupils are equal, round, and reactive to light. Cardiovascular: Rate and Rhythm: Normal rate and regular rhythm. Heart sounds: Normal heart sounds. No murmur heard. Pulmonary: Effort: Pulmonary effort is normal. Breath sounds: Examination of the right-upper field reveals wheezing. Examination of the right-middle field reveals wheezing. Examination of the right-lower field reveals wheezing. Wheezing present. No rhonchi or rales. Musculoskeletal: Cervical back: Normal range of motion and neck supple. Lymphadenopathy: Head: Right side of head: No tonsillar, preauricular or posterior auricular adenopathy. Left side of head: No tonsillar, preauricular or posterior auricular adenopathy. Cervical: No cervical adenopathy. Upper Body: Right upper body: No supraclavicular adenopathy. Left upper body: No supraclavicular adenopathy. Skin: General: Skin is warm and dry. Findings: No bruising or rash. Neurological: General: No focal deficit present. Mental Status: She is alert and oriented to person, place, and time. Cranial Nerves: No cranial nerve deficit. Psychiatric: Mood and Affect: Mood and affect normal. Speech: Speech normal. Behavior: Behavior normal. Behavior is cooperative. ASSESSMENT/PLAN: 1. Lower respiratory infection - ICD9: 519.8, ICD10: J22 (primary diagnosis) Start doxycycline 100 mg BID x 10 days Prednisone taper 60-40-20 x 9 days Follow up for worsening or persistent symptoms. - DOXYCYCLINE HYCLATE 100 MG CAPSULE - PREDNISONE 20 MG TABLET 2. Mild intermittent asthma with acute exacerbation - ICD9: 493.92, ICD10: J45.21 Prednisone taper Albuterol inhaler 2 puffs 3-4 x day - DOXYCYCLINE HYCLATE 100 MG CAPSULE - PREDNISONE 20 MG TABLET 3. Depression screening - ICD9: V79.0, ICD10: Z13.31 - DEPRESSION SCREENING/ASSESSMENT Laurel Brooks APRN.PARRIS documented in this encounter [facility] 05-17-2022 Miscellaneous Notes Patient lm on vm stating she has URI and is requesting prednisone. Please help assist with scheduling virtual. Visit. Thanks. Kristal Basilio MA documented in this encounter [facility] 05-07-2022 Instructions Lana Valentin APRN.CNP - 05/07/2022 10:03 AM EDT Images from the original note were not included. documented in this encounter [facility] 05-07-2022 History of Presen t illness Narrative Images from the original [place] [id number] Date of Evaluation: 05/07/2022 Patient Name: Jaky Heredia : 1950 Jaky Heredia is a 71 year old female who presents for wellness. She was a former patient of Dr. Barbosa. I reviewed past medical, surgical, social, and family histories today and updated chart. Allergies, chronic medications, and supplements were also reviewed. She is due for routine lab work. She is up to date with her colon cancer screening from 2020 with a negative Cologuard. She declines a mammogram today. She is interested in getting the flu vaccine today. Feeling more anxious Sister in law staying for a month Watches her 2 year old grandson 3 days a week Neighbors are always asking for help Interested in something to help her calm down The history is provided by the patient. No equipment records supervisor was used. Exercise: Patient has been active with walking, watching grandson. Weight Trend: Last 2 Encounter Wt Readings: Date: Wt: 05/07/2022 87.1 kg (192 lb) 11/30/2021 88.5 kg (195 lb) Eating Habits: Patient does maintain healthy eating habits. Cut out breads and potatoes. Types of food appropriate diet Tobacco Use: Tobacco Use: Never No alcohol intake Active Problem List/Chronic Problems There are no active hospital problems to display for this patient. Health Maintenance DEPRESSION ASSESSMENT Never done INFLUENZA(1) due on 03/21/2022 HEALTH MAINTENANCE REVIEW: Colonoscopy, Mammogram, and Influenza Immunization History Administered Date(s) Administered COVID-19 original vaccine, full dose, monovalent (MODERNA) 03/18/2021 04/15/2021 Influenza Seasonal - High Dose - Age 65+ 04/22/2018 04/16/2019 07/01/2021 Pneumococcal-13 Vac Conjugate 09/22/2017 Pneumovax 11/17/2017 Tdap (Age 7+) 04/22/2018 Zoster Recombinant (Shingrix) 01/11/2020 06/05/2020 influenza, high-dose, quadrivalent vaccine (FLUZONE HIGH DOSE QUADRIVALENT) 04/12/2020 07/01/2021 05/07/2022 Review of Systems Constitutional: Negative for appetite change, chills, diaphoresis, fatigue and fever. HENT: Negative for hearing loss, tinnitus and trouble swallowing. Eyes: Negative for visual disturbance. Wears glasses Respiratory: Negative for cough, chest tightness, shortness of breath and wheezing. Cardiovascular: Negative for chest pain, palpitations and leg swelling. Gastrointestinal: Negative for abdominal pain, blood in stool, constipation, diarrhea, nausea and vomiting. Genitourinary: Negative for dysuria, frequency and urgency. Musculoskeletal: Negative for arthralgias (right knee), back pain, joint swelling, myalgias, neck pain and neck stiffness. Skin: Negative. Neurological: Positive for headaches (stress). Negative for dizziness, syncope, weakness and light-headedness. Hematological: Negative. Psychiatric/Behavioral: Positive for sleep disturbance (difficult falling asleep). Negative for dysphoric mood. The patient is nervous/anxious. PAIN: Negative for pain, history of chronic pain, or current treatment for a chronic pain condition. ALLERGIES Allergen Reactions Amoxicillin Hives pantoprazole DR (PROTONIX) 20 mg tablet Take 1 tablet by mouth once daily. naproxen (NAPROSYN) 500 mg tablet Take 1 tablet by mouth twice daily as needed (FOR PAIN - TAKE WITH FOOD.). diphenhydramine HCl (ALLERGY RELIEF ORAL) Take 1 tablet by mouth once daily as needed. albuterol HFA (VENTOLIN HFA) 90 mcg/actuation inhaler Inhale 2 Puffs as instructed every 6 hours as needed. busPIRone (BUSPAR) 5 mg tablet Take 1 tablet by mouth twice daily as needed. PAST MEDICAL HISTORY Diagnosis Date Asthma PAST SURGICAL HISTORY Procedure Laterality Date ARTHRP KNE CONDYLE&PLATU MEDIAL&LAT COMPARTMENTS Left 07/20/2018 EXC B9 LESION MRGN XCP SK TG T/A/L 0.6-1.0 CM 1979 growth removed under right ear benign PROCEDURE 03/06/2020 parotid gland removed REMOVAL OF SKIN LESION 1970 growth removed below right ear benign TUBAL LIGATION HX 10/08/1975 FAMILY HISTORY Problem Relation Age of Onset Alzheimer's Disease Mother other (heart diesease) Father Cancer Maternal Aunt breast Emphysema Brother COPD Brother Last 3 Encounter BP Readings: Date: BP: 05/07/2022 120/68 11/30/2021 134/105 10/10/2021 116/68 BP 120/68 Pulse 67 Temp 98.2 Resp 20 Ht 5' 3.25 (1.61m) Wt 192 lb (87.1kg) SpO2 100% BMI 33.72 kg/(m^2). Physical Exam Vitals and nursing note reviewed. Constitutional: Appearance: Normal appearance. She is well-developed. HENT: Head: Normocephalic. Right Ear: Tympanic membrane, ear canal and external ear normal. Left Ear: Tympanic membrane, ear canal and external ear normal. Nose: Nose normal. Mouth/Throat: Lips: [place]. Mouth: Mucous membranes are moist. Pharynx: Oropharynx is clear. Eyes: General: Vision grossly intact. Conjunctiva/sclera: Conjunctivae normal. Pupils: Pupils are equal, round, and reactive to light. Neck: Thyroid: No thyroid mass or thyromegaly. Cardiovascular: Rate and Rhythm: Normal rate and regular rhythm. Pulses: Normal pulses. Heart sounds: Normal heart sounds, S1 normal and S2 normal. No murmur heard. Pulmonary: Effort: Pulmonary effort is normal. No respiratory distress. Breath sounds: Normal breath sounds and air entry. Abdominal: General: Bowel sounds are normal. Palpations: Abdomen is soft. There is no hepatomegaly or splenomegaly. Tenderness: There is no abdominal tenderness. Musculoskeletal: Cervical back: Neck supple. Right lower leg: No edema. Left lower leg: No edema. Skin: General: Skin is warm and dry. Neurological: General: No focal deficit present. Mental Status: She is alert and oriented to person, place, and time. Cranial Nerves: Cranial nerves 2-12 are intact. Sensory: Sensation is intact. Motor: Motor function is intact. Psychiatric: Mood and Affect: Mood and affect normal. Speech: Speech normal. Behavior: Behavior normal. Behavior is cooperative. Thought Content: Thought content normal. Cognition and Memory: Cognition normal. Judgment: Judgment normal. ASSESSMENT / PLAN: 1. Well adult exam - ICD9: V70.0, ICD10: Z00.00 (primary diagnosis) - Counseled on healthy diet and regular exercise. Congratulated her on losing 6 more pounds. - Calcium intake with supplements or by diet of 1000 mg/day for under 50, 2096-6929 mg/day for 50+ - Depression screening tool completed and reviewed with patient. Based on score and interview, patient is not at risk for depression and recommended no further intervention at this time. - Patient was counseled [id number] by myself (the billing provider) for the following immunizations and vaccine components, including side effects: Influenza. Patient consents for immunization and understands risks and benefits. A VIS sheet on each immunization was given to the patient. - Follow up for annual exam in one year - LIPID PANEL BASIC - CBC + DIFF - COMP METABOLIC PANEL - HGB A1C 2. Anxiety - ICD9: 300.00, ICD10: F41.9 - Discussed starting a medication to take as needed when she is feeling overwhelmed. Encouraged her to set some boundaries with her neighbors. - BUSPIRONE 5 MG TABLET 3. Hyperlipidemia, mixed - ICD9: 272.2, ICD10: E78.2 - to be determined upon return of lab results - Encouraged following a low fat, low cholesterol diet. - Discussed the benefits of regular aerobic exercise and weight loss. - Encouraged following a low carbohydrate, healthy oil intake diet. 4. Encounter for immunization - ICD9: V03.89, ICD10: Z23 - INFLUENZA SEASONAL QUADRIVALENT HIGH DOSE AGE 65+ Discussed health maintenance, including regular aerobic exercise, low fat diet, and periodic exams. Return in about 6 months (around 11/05/2022) for Anxiety. Lana Valentin APRN.CNP documented in this encounter [facility] 12-04-2021 Note HNO ID: [id number] Author: Barb Delvalle MA Service: ? Author Type: Watch Manufacturing Supervisor Type: Progress Notes Filed: 12/04/2021 5:08 PM Note Text: ED Follow Up: Patient discharged from [facility] ED on 11/30/21 . 1. How are you feeling since your ED visit? Left VM Have your symptoms improved or resolved? Left VM 2. Were you prescribed any medications while in the ED or advised to stop any medication? Left VM - If yes, were you able to fill your prescriptions? Left VM -if stopped medication, what was the medication? Left VM 3. Were you advised to schedule a follow up appointment with your provider? Left VM - If no, Do you feel like you need an appointment scheduled? Left VM - If yes, Do you need this scheduled now or has this already been scheduled? Left VM 4. Were you able to contact the office or silk conditioner provider prior to your ED visit? Left VM 5. Is there anything else I can do for you today? Left VM [facility] 12-04-2021 History of Presen t illness Narrative ED Follow Up: Patient discharged from [facility] ED on 11/30/21 . 1. How are you feeling since your ED visit? Left VM Have your symptoms improved or resolved? Left VM 2. Were you prescribed any medications while in the ED or advised to stop any medication? Left VM - If yes, were you able to fill your prescriptions? Left VM -if stopped medication, what was the medication? Left VM 3. Were you advised to schedule a follow up appointment with your provider? Left VM - If no, Do you feel like you need an appointment scheduled? Left VM - If yes, Do you need this scheduled now or has this already been scheduled? Left VM 4. Were you able to contact the office or silk conditioner provider prior to your ED visit? Left VM 5. Is there anything else I can do for you today? Left VM documented in this encounter [facility] 12-04-2021 Note Patient Outreach (AG INTMLW) JAKY HEREDIA ([id number]) 1950 F Date Time Provider Department 12/04/21 ISAI PONCE AGINTMLJh During your visit today, we recorded the following information about you: Barb Delvalle MA 12/04/2021 5:08 PM Signed ED Follow Up: Patient discharged from [facility] ED on 11/30/21 . 1. How are you feeling since your ED visit? Left VM Have your symptoms improved or resolved? Left VM 2. Were you prescribed any medications while in the ED or advised to stop any medication? Left VM - If yes, were you able to fill your prescriptions? Left VM -if stopped medication, what was the medication? Left VM 3. Were you advised to schedule a follow up appointment with your provider? Left VM - If no, Do you feel like you need an appointment scheduled? Left VM - If yes, Do you need this scheduled now or has this already been scheduled? Left VM 4. Were you able to contact the office or silk conditioner provider prior to your ED visit? Left VM 5. Is there anything else I can do for you today? Left VM Allergies As of Date: 12/04/2021 Noted Allergy Reaction AMOXICILLIN 04/12/2020 4 - Hives Date Reviewed: 11/30/2021 Reviewed by: Bri Lai RN - Fully Assessed Prescriptions as of 12/04/2021 - bacitracin-polymyxin B (POLYSPORIN) 500-10,000 unit/gram Apply 1 application to affected area twice daily for 5 days. Apply to skin tear area on left index finger. - pantoprazole DR (PROTONIX) 20 mg tablet Take 1 tablet by mouth once daily. - naproxen (NAPROSYN) 500 mg tablet Take 1 tablet by mouth twice daily as needed (FOR PAIN - TAKE WITH FOOD.). - diphenhydramine HCl (ALLERGY RELIEF ORAL) Take 1 tablet by mouth once daily as needed. - albuterol HFA (VENTOLIN HFA) 90 mcg/actuation inhaler Inhale 2 Puffs as instructed every 6 hours as needed. Problem List As Of Date 12/04/2021 Noted Resolved Obesity, Class II, BMI 35-39.9 [E66.9] 04/22/2018 S/P total knee arthroplasty, left [Z96.652] 09/17/2018 Knee stiffness, left [M25.662] 09/17/2018 Primary osteoarthritis of left knee [M17.12] 09/17/2018 Chronic pain of left knee [M25.562, G89.29] 09/17/2018 Difficulty walking due to knee joint [R26.2] 09/17/2018 Obesity, Class I, BMI 30-34.9 [E66.9] 10/10/2021 Encounter Status:Closed by BARB DELVALLE on 12/04/21 [facility] 11-20-2021 Miscellaneous Notes Patient called in to schedule an appointment, due to symptoms was transferred to be triaged. Spoke with patient and she states she does not know if it is because of the change of seasons but she is having chest congestion, productive cough with yellow phlegm, wheezing and tightness in her chest when breathing, getting short of breath after coughing. Patient denies any fever, loss of taste/smell, headaches or body aches. Patient states she has tried OTC robitussin but it is not helping. Patient states Dr. Ponce used to give her prednisone and tessalon pearls when she would have these symptoms. Transferred patient to front office to schedule an appointment. Spoke with front office and they were unable to schedule anything because the only appointment available is a one day release with Cindy Weiner CNP, patient is going to call back first thing in the morning to get scheduled. Doris Alfaro MA documented in this encounter [facility] 10-10-2021 Note HNO ID: [id number] Author: Sade Ponce MD Service: ? Author Type: Physician Type: Progress Notes Filed: 10/10/2021 12:52 PM Note Text: The patient is here for a follow up. She is up to date on her blood work and screening. She isn't due for any immunizations. She reports she is trying to eat healthy. She does like to walk with her grandson. She is a non-smoker and doesn't need any refills today. She follows with orthopedics and ENT. She doesn't have a living will in place. She is interested in completing one. The patient reports her asthma has been well controlled recently. She is just on a rescue inhaler as needed. She reports she doesn't really need it, stating she will use it 1-2 times per month. She states it is worse in the summer with the grass. She states it does help when she uses it. The patient reports she has been taking 20mg of protonix for her heartburn stating she has transitioned to using it as needed and her symptoms have been well controlled. She denies any problems with the medication at all. She hasn't needed it at all in the last month or so. She reports she has been having some post nasal drip for the last two weeks which has been making her cough. She states she has been taking robitussin as needed for her cough which does seem to help. She denies any sputum production, sore throat, ear pain or drainage, sinus pain or pressure. She hasn't had any fevers. She reports she has mild rhinorrhea. She has no questions or concerns today. Patient is a 71 year old female presenting with cough. The history is provided by the patient. Asthma This is a chronic problem. The current episode started more than 1 year ago. The problem occurs intermittently. The problem has been unchanged. Associated symptoms include coughing. Pertinent negatives include no abdominal pain, chest pain, congestion, fever, headaches, nausea, rash, sore throat, vomiting or weakness. GERD She complains of coughing. She reports no abdominal pain, no belching, no chest pain, no choking, no globus sensation, no heartburn (controlled), no nausea or no sore throat. This is a chronic problem. The problem has been unchanged. The heartburn duration is more than one hour. The heartburn is located in the abdomen and substernum. The heartburn wakes her from sleep. The heartburn changes with position. The symptoms are aggravated by certain foods. Associated symptoms include weight loss. Risk factors include hiatal hernia and obesity. She has tried a PPI for the symptoms. The treatment provided significant relief. Past procedures do not include an EGD. ALLERGIES Allergen Reactions - Amoxicillin Hives Current Outpatient Medications Medication Sig Dispense Refill - pantoprazole DR (PROTONIX) 20 mg tablet Take 1 tablet by mouth once daily. 90 tablet 1 - naproxen (NAPROSYN) 500 mg tablet Take 1 tablet by mouth twice daily as needed (FOR PAIN - TAKE WITH FOOD.). 60 tablet 0 - diphenhydramine HCl (ALLERGY RELIEF ORAL) Take 1 tablet by mouth once daily as needed. - albuterol HFA (VENTOLIN HFA) 90 mcg/actuation inhaler Inhale 2 Puffs as instructed every 6 hours as needed. 1 Inhaler 1 No current facility-administered medications for this visit. ACTIVE PROBLEM LIST Obesity, Class II, Bmi 35-39.9 S/P Total Knee Arthroplasty, Left Knee Stiffness, Left Primary Osteoarthritis of Left Knee Chronic Pain of Left Knee Difficulty Walking Due to Knee Joint Obesity, Class I, Bmi 30-34.9 Social History Tobacco Use - Smoking status: Never Smoker - Smokeless tobacco: Never Used Vaping Use - Vaping Use: Never used Substance Use Topics - Alcohol use: Yes Comment: once month - Drug use: No Family History Problem Relation Age of Onset - Alzheimer's Disease Mother - other (heart diesease) Father - Cancer Maternal Aunt breast - Emphysema Brother - COPD Brother Reviewed past medical and surgical history. BP 116/68 (BP Site: Left Arm, BP Position: Sitting, BP Cuff Size: Large Adult) Pulse 101 Temp 37.2 ?C (98.9 ?F) Resp 16 Ht 160.7 cm (5' 3.25 ) Wt 89.9 kg (198 lb 3.2 oz) SpO2 96% BMI 34.83 kg/m? Review of Systems Constitutional: Positive for weight loss. Negative for fever. HENT: Negative for congestion, ear discharge, ear pain, hearing loss, sinus pain and sore throat. Post nasal drip, rhinorrhea Eyes: Positive for blurred vision. Respiratory: Positive for cough. Negative for choking and shortness of breath. Cardiovascular: Negative for chest pain, palpitations, claudication and leg swelling. Gastrointestinal: Negative for abdominal pain, constipation, diarrhea, heartburn (controlled), nausea and vomiting. Genitourinary: Negative for dysuria. Musculoskeletal: Negative for falls. Skin: Negative for rash. Neurological: Negative for dizziness, tingling (resolved), loss of consciousness, weakness and headaches. Psychiatric/Behavioral: Negati (more content not included)... [facility] 09-20-2021 Note Patient Outreach (NE TNAV) SUHAILOMARJAKY GUTHRIE ([id number]) 1950 F Date Time Provider Department 09/20/21 NAKUL FREIRE During your visit today, we recorded the following information about you: Nakul Freire 09/20/2021 11:05 AM Signed [facility] NAVIGATION OUTREACH Action/MARIZA cintron Patient due for the following: Foolow up due for asthma 10/10/2021 per 03/22/2021 OV Advance Directive Discussion Call made to patient and she scheduled follow up w/ PCP. She requested AD packet to be mailed to home address Pt identified by name and : YES, via phone Outreach Outcome/Action Spoke to patient or caregiver: Patient scheduled Reason for Outreach Care Gap or Scheduling/Wellness visits Payer: Payor: [employer] / Plan: [employer] LIFE AND CASUALTY SUPPLEMENT / Product Type: Indemnity / Care Gap Reviewed:: Follow-up appointment Reminder: Reminder note to check Health Maintenance for items below Health Maintenance items due: ADVANCE DIRECTIVE DISCUSSION Never done COVID-19 VACCINE(3 - Booster for Moderna series) due on 09/15/2021 Message Sent to Practice: No Navigation Signature: Nakul Freire September 20, 2021 11:03 AM Allergies As of Date: 09/20/2021 Noted Allergy Reaction AMOXICILLIN 04/12/2020 4 - Hives Date Reviewed: 03/22/2021 Reviewed by: Sade Ponce MD - Fully Assessed Reason for Visit: Population Health Navigation Outreach [3910] Cmt: Barbara medicare Prescriptions as of 09/20/2021 - predniSONE (DELTASONE) 20 mg tablet Take 2 tablets by mouth once daily. - pantoprazole DR (PROTONIX) 20 mg tablet Take 1 tablet by mouth once daily. - naproxen (NAPROSYN) 500 mg tablet Take 1 tablet by mouth twice daily as needed (FOR PAIN - TAKE WITH FOOD.). - diphenhydramine HCl (ALLERGY RELIEF ORAL) Take 1 tablet by mouth once daily as needed. - albuterol HFA (VENTOLIN HFA) 90 mcg/actuation inhaler Inhale 2 Puffs as instructed every 6 hours as needed. Problem List As Of Date 09/20/2021 Noted Resolved Obesity, Class II, BMI 35-39.9 [E66.9] 04/22/2018 S/P total knee arthroplasty, left [Z96.652] 09/17/2018 Knee stiffness, left [M25.662] 09/17/2018 Primary osteoarthritis of left knee [M17.12] 09/17/2018 Chronic pain of left knee [M25.562, G89.29] 09/17/2018 Difficulty walking due to knee joint [R26.2] 09/17/2018 Encounter Status:Closed by NAKUL FREIRE on 09/20/21 [facility] 09-20-2021 Note HNO ID: [id number] Author: Nakul Freire Service: ? Author Type: ? Type: Progress Notes Filed: 09/20/2021 11:05 AM Note Text: POPULATION HEALTH NAVIGATION OUTREACH Action/MARIZA cintron Patient due for the following: Foolow up due for asthma 10/10/2021 per 03/22/2021 OV Advance Directive Discussion Call made to patient and she scheduled follow up w/ PCP. She requested AD packet to be mailed to home address Pt identified by name and : YES, via phone Outreach Outcome/Action Spoke to patient or caregiver: Patient scheduled Reason for Outreach Care Gap or Scheduling/Wellness visits Payer: Payor: [employer] / Plan: [employer] LIFE AND CASUALTY SUPPLEMENT / Product Type: Indemnity / Care Gap Reviewed:: Follow-up appointment Reminder: Reminder note to check Health Maintenance for items below Health Maintenance items due: ADVANCE DIRECTIVE DISCUSSION Never done COVID-19 VACCINE(3 - Booster for Moderna series) due on 09/15/2021 Message Sent to Practice: No Navigation Signature: Nakul Freire September 20, 2021 11:03 AM [facility] 04-24-2021 Note HNO ID: [id number] Author: RT Chris(R) Service: ? Author Type: Technologist Type: Progress Notes Filed: 04/24/2021 10:06 AM Note Text: Radiology Service Progress Note PATIENT NAME: Jaky Heredia DATE OF SERVICE: April 24, 2021 TIME: 10:06 AM PATIENT IDENTITY VERIFICATION COMPLETED USING TWO (2) IDENTIFIERS: Name and Date of confirmed by patient verbally. FALL SCREENING: Has the patient had 2 falls in the last year or 1 fall with injury or currently using an Ambulatory Assistive Device (Walker, Cane, Wheelchair, Crutches, etc.)? No PATIENT GENDER DATA: Female. status: : No status: N/A PATIENT RELEVANT IMPLANT DATA REVIEWED: Not Applicable RADIOLOGY DEPARTMENT: Mammography PERIPHERAL IV DATA: Not applicable SIGNED BY: RT Chris(R) April 24, 2021 10:06 AM [facility] 03-22-2021 Note HNO ID: [id number] Author: Sade Ponce MD Service: ? Author Type: Physician Type: Progress Notes Filed: 03/22/2021 9:13 AM Note Text: The patient is here for a follow up. She hasn't been seen in a year. She is due for some routine blood work and screening. She doesn't want to do a colonoscopy, but is willing to do a cologuard. She had her first COVID shot this weekend. She reports she is still trying to eat healthy, but hasn't been doing as well. She does like to walk with her grandson. She is a non-smoker and doesn't need any refills today. She follows with orthopedics and ENT. The patient reports her asthma has been controlled recently. She had her PFT which showed mild asthma. She continues to use the rescue inhaler as needed which does help her symptoms. She hasn't needed it for the last few months. She reports when she does use it, it helps. The patient reports she has been taking 20mg of protonix for her heartburn and her symptoms have been well controlled. She denies any problems with the medication at all. She has no questions or concerns today. Patient is a 70 year old female presenting with cough. The history is provided by the patient. Asthma This is a chronic problem. The current episode started more than 1 year ago. The problem occurs intermittently. The problem has been unchanged. Pertinent negatives include no abdominal pain, chest pain, congestion, coughing, fever, headaches, nausea, rash, sore throat, vomiting or weakness. GERD She reports no abdominal pain, no belching, no chest pain, no choking, no coughing, no globus sensation, no heartburn (controlled with medications), no nausea or no sore throat. This is a chronic problem. The problem has been unchanged. The heartburn duration is more than one hour. The heartburn is located in the abdomen and substernum. The heartburn wakes her from sleep. The heartburn changes with position. The symptoms are aggravated by certain foods. Pertinent negatives include no weight loss. Risk factors include hiatal hernia and obesity. She has tried a PPI for the symptoms. The treatment provided significant relief. Past procedures do not include an EGD. ALLERGIES Allergen Reactions - Amoxicillin Hives Current Outpatient Medications Medication Sig Dispense Refill - pantoprazole DR (PROTONIX) 20 mg tablet Take 1 tablet by mouth once daily. 90 tablet 1 - naproxen (NAPROSYN) 500 mg tablet Take 1 tablet by mouth twice daily as needed (FOR PAIN - TAKE WITH FOOD.). 60 tablet 0 - diphenhydramine HCl (ALLERGY RELIEF ORAL) Take 1 tablet by mouth once daily as needed. - albuterol HFA (VENTOLIN HFA) 90 mcg/actuation inhaler Inhale 2 Puffs as instructed every 6 hours as needed. 1 Inhaler 1 No current facility-administered medications for this visit. ACTIVE PROBLEM LIST Obesity, Class II, Bmi 35-39.9 S/P Total Knee Arthroplasty, Left Knee Stiffness, Left Primary Osteoarthritis of Left Knee Chronic Pain of Left Knee Difficulty Walking Due to Knee Joint Social History Tobacco Use - Smoking status: Never Smoker - Smokeless tobacco: Never Used Vaping Use - Vaping Use: Never used Substance Use Topics - Alcohol use: No - Drug use: No Family History Problem Relation Age of Onset - Alzheimer's Disease Mother - other (heart diesease) Father - Cancer Maternal Aunt breast - Emphysema Brother - COPD Brother Reviewed past medical and surgical history. BP 126/76 (BP Site: Right Arm, BP Position: Sitting, BP Cuff Size: Large Adult) Pulse 84 Temp 36.6 ?C (97.8 ?F) (Oral) Resp 18 Wt 93.4 kg (205 lb 12.8 oz) SpO2 97% BMI 36.17 kg/m? Review of Systems Constitutional: Negative for fever and weight loss. HENT: Negative for congestion, hearing loss and sore throat. Eyes: Negative for blurred vision. Respiratory: Negative for cough, choking and shortness of breath. Cardiovascular: Negative for chest pain, palpitations, claudication and leg swelling. Gastrointestinal: Negative for abdominal pain, constipation, diarrhea, heartburn (controlled with medications), nausea and vomiting. Genitourinary: Negative for dysuria. Musculoskeletal: Positive for joint pain. Negative for falls. Skin: Negative for rash. Neurological: Positive for tingling (left lower leg). Negative for dizziness, loss of consciousness, weakness and headaches. Psychiatric/Behavioral: Negative for depression and suicidal ideas. Physical Exam Vitals and nursing note reviewed. Constitutional: General: She is not in acute distress. Appearance: She is not diaphoretic. HENT: Head: Normocephalic and atraumatic. Mouth/Throat: Mouth: Mucous membranes are moist. Pharynx: Oropharynx is clear. Eyes: Conjunctiva/sclera: Conjunctivae normal. Pupils: Pupils are equal, round, and reactive to light. Cardiovascular: Rate and Rhythm: Normal rate and regular rhythm. Heart sounds: Normal heart sounds. No murmur hea (more content not included)... [facility] documented in this encounter [facility]* Diagnosis Lower respiratory infection- Primary Other diseases of respiratory system, not elsewhere classified Mild intermittent asthma with acute exacerbation Unspecified asthma, with exacerbation Depression screening Screening for depression documented in this encounter [facility] note* Diagnosis Anxiety Anxiety state, unspecified documented in this encounter [facility] note* Diagnosis Acute non-recurrent frontal sinusitis- Primary documented in this encounter [facility] note* Diagnosis Mild intermittent asthma with acute exacerbation- Primary Unspecified asthma, with exacerbation SOB (shortness of breath) Shortness of breath Persistent cough Cough Hiatal hernia with GERD Screening for depression documented in this encounter [facility] note* Diagnosis SOB (shortness of breath) Shortness of breath Persistent cough Cough documented in this encounter [facility] note* Diagnosis Hyperlipidemia, mixed- Primary Mixed hyperlipidemia documented in this encounter [facility] note* Diagnosis Mild intermittent asthma with acute exacerbation Unspecified asthma, with exacerbation SOB (shortness of breath) Shortness of breath documented in this encounter [facility] note* Diagnosis Mild intermittent asthma with acute exacerbation Unspecified asthma, with exacerbation SOB (shortness of breath) Shortness of breath documented in this encounter [facility] note* Diagnosis Hyperlipidemia, mixed Mixed hyperlipidemia documented in this encounter [facility] note* Diagnosis Mild intermittent asthma without complication- Primary Unspecified asthma Anxiety Anxiety state, unspecified Hiatal hernia with GERD documented in this encounter [facility] note* Diagnosis Anxiety Anxiety state, unspecified documented in this encounter [facility] note* Diagnosis Hiatal hernia with GERD documented in this encounter [facility] note* Diagnosis Anxiety- Primary Anxiety state, unspecified Mild intermittent asthma without complication Unspecified asthma documented in this encounter [facility] note* Diagnosis Acute cough- Primary Sore throat Acute pharyngitis Mild intermittent asthma with acute exacerbation Unspecified asthma, with exacerbation Impacted cerumen of left ear Impacted cerumen documented in this encounter [facility] note* Diagnosis Mild intermittent asthma, uncomplicated- Primary Unspecified asthma Chronic cough Cough Elevated hemoglobin A1c Other abnormal blood chemistry Hyperlipidemia, mixed Mixed hyperlipidemia Hiatal hernia with GERD Screening for deficiency anemia Screening for other and unspecified deficiency anemia documented in this encounter [facility] note* Diagnosis Mild intermittent asthma, uncomplicated Unspecified asthma Chronic cough Cough documented in this encounter [facility] note* Diagnosis Large hiatal hernia- Primary documented in this encounter [facility] for referral (narrative)* Outpatient Procedure (Routine) - Pending Review Specialty Diagnoses / Procedures Referred By Jessi oconnell [facility] Diagnoses Mild intermittent asthma with acute exacerbation SOB (shortness of breath) Procedures LUNG VOLUMES Lana Valentin APRN.CNP [address] [place] [address] Res[facility] [place] [address] [place] [address] Referral ID Status Reason Start Date Expiration Date Visits Requested Visits Authorized [id number] Pending Review Auto-Generat ed Referral 08/13/2022 09/12/2023 1 1 * Outpatient Procedure (Routine) - Pending Review Specialty Diagnoses / Procedures Referred By Jessi t Referred To [facility] Diagnoses Mild intermittent asthma with acute exacerbation SOB (shortness of breath) Procedures LUNG DIFFUSION CAPACITY (DLCO) DIFFUSING CAPACITY Lana Valentin APRN.CNP [address] [place] [address] [facility] [place] [phone] Referral ID Status Reason Start Date Expiration Date Visits Requested Visits Authorized [id number] Pending Review Auto-Generat ed Referral 08/13/2022 09/12/2023 1 1 * Outpatient Procedure (Routine) - Pending Review Specialty Diagnoses / Procedures Referred By Jessi oconnell [facility] Diagnoses Mild intermittent asthma with acute exacerbation SOB (shortness of breath) Procedures SPIROMETRY - BASELINE AND POST DILATOR BRNCDILAT RSPSE SPMTRY PRE&POST-BRNCDILAT ADMN Lana Valentin APRN.CNP [address] [place] [address] [place] [phone] Referral ID Status Reason Start Date Expiration Date Visits Requested Visits Authorized [id number] Pending Review Auto-Generat ed Referral 08/13/2022 09/12/2023 1 1 [facility] for visit Narrative* Outpatient Procedure (Routine) - Closed Specialty Diagnoses / Procedures [facility] Diagnoses df Procedures RADIOLOGIC EXAM CHEST 2 VIEWS XR CHEST Lana Valentin APRN.CNP [address] [place] [address] [facility] [address] [place] [address] Referral ID Status Reason Start Date Expiration Date V isits Requested Visits Authorized [id number] Closed Financial Clearance Not Required 07/21/2022 07/20/2023 1 1 [facility] Summary Purpose Family History No Family History Records FoundNo Family History Records FoundNo Family History Records FoundNo Family History Records FoundNo Family History Records FoundNo Family History Records Found Advance Directives No Advanced Directives Records FoundDocuments on File Type Date Recorded 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 Advance Directives and Living Will Documents on File Type Date Recorded 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 Advance Directives and Living Will Documents on File Type Date Recorded 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 Advance Directive(s) 11/30/2021 9:29 PM History of Present Illness * Alexx Crespo MD - 08/04/2018 5:57 PM EST Dictation on: 08/04/2018 5:58 PM by: ALEXX CRESPO [[id number]] in this encounter* Alexx Crespo MD - 09/01/2018 1:38 PM EST Dictation on: 09/01/2018 1:39 PM by: ALEXX CRESPO [[email or web address]] in this encounter* Alexx Crespo MD - 10/13/2018 1:13 PM EDT Dictation on: 10/13/2018 1:14 PM by: ALEXX CRESPO [[id number]] in this encounter* Alexx Crespo MD - 07/08/2019 10:03 AM EST Dictation on: 07/08/2019 10:04 AM by: ALEXX CRESPO [[id number]] documented in this encounter* Alexx Crespo MD - 02/29/2020 2:11 PM EDT Associated Order(s): LG Jt Injection/Arthrocentesis: R knee Post-Procedure Diagnose(s): Primary osteoarthritis of right knee Jaky has had about 3 to 6 months of increasing right knee pain with walking activities. It feelsstiff. She gets grinding, popping, catching. She has not had any real treatment for this, but she had had a left total knee replacement in the past that is doing well. She wonders what her options are. MEDICATIONS Ventolin inhaler, Tessalon, Protonix, Deltasone. PAST MEDICAL HISTORY She has had a left total knee replacement. No other significant medical problems or illnesses. ALLERGIES No known allergies. REVIEW OF SYSTEMS No chest pain, shortness of breath. No PND, orthopnea, bowel or bladder symptoms, fatigability, visual or hearing problems. PHYSICAL EXAM General: Reveals a pleasant white female in no acute distress. Her general exam is unremarkable. She is overweight. HEENT: Normal. Abdomen: Soft and nontender. Extremities: Hip motion is full and painless. Her right knee, she has varus medial joint line tenderness. There is crepitation with motion which is about 5 degrees to 120 degrees and she is neurovascularly intact with good pulses and color in the lower extremities and moves well. She walks with antalgic gait. IMAGING X-rays, right knee, 4 views, reveal severe degenerative arthritis, bone against bone medially. There is translation of the tibia on the femur. There are lateral osteophytes and patellar osteophytes. IMPRESSION Severe degenerative arthritis, right knee. PLAN I have discussed the options with her. Since she has had no conservative management, I recommended Aleve; 2 in the morning and 2 at night. She can wear a knee sleeve. It may help her. I have sent herto physical therapy. She is going to have that performed at [facility]. I have also gone ahead and injected her right knee. Under sterile scrub, I injected 40 mg of Kenalog mixed with xylocaine without difficulty and she tolerated that well. Hopefully, this will help control her symptoms. I will see her back in 6 weeks. LG Jt Injection/Arthrocentesis: R knee Performed by: Alexx Crespo MD Authorized by: Alexx Crespo MD Supporting Documentation: Indications: Pain Procedure Details: Location: Knee Site: R knee Prep: patient was prepped and draped in usual sterile fashion Needle size: 22 G Approach: Lateral Medications: 40 mg triamcinolone acetonide 40 mg/mL Anesthetic used: Lidocaine 1% Anesthetic amount (mL): 2 Patient tolerance: Patient tolerated the procedure well with no immediate complications documented in this encounter Assessments Diagnosis Status post total left knee replacement- Primary Diagnosis Status post total left knee replacement- Primary Diagnosis Status post total left knee replacement- Primary Diagnosis Status post total left knee replacement Diagnosis Primary osteoarthritis of right knee Reason for Referral Status Reason Specialty Diagnoses / Procedures Referred By Contact Referred To Contact Authorized Patient Preference Rehabilitation Diagnoses Primary osteoarthritis of right knee Alexx Crespo MD [address] [place] [address] [facility] [place] [address] [place] [address] Specialty Diagnoses / Procedures Referred By Contac t Referred To Contact [facility] Diagnoses Large hiatal hernia Procedures CONSULT TO GASTROENTEROLOGY OFFICE/OUTPATIENT [facility] 60-74 MINUTES Lana Valentin, CAMPGROUND MANAGER.NAILHEAD PUNCHER [address] [place] [address] [facility] [address] [place] [address] Referral ID Status Reason Start Date Expiration Date Visits Requested Visits Authorized [id number] Pending Review PCP Requested Referral 05/29/2023 05/28/2024 1 1 Additional Source Comments INFORMATION SOURCE (unrecogn ized section and content) DATE CREATED AUTHOR AUTHOR'S ORGANIZ ATION 11/13/2018 [facility] DATE CREATED AUTHOR AUTHOR'S ORGANIZ ATION 07/12/2019 [facility] DATE CREATED AUTHOR AUTHOR'S ORGANIZ ATION 03/04/2020 [facility] DATE CREATED AUTHOR AUTHOR'S ORGANIZ ATION 12/07/2021 [facility] DATE CREATED AUTHOR AUTHOR'S ORGANIZ ATION 08/16/2023 [facility] Reason for Visit (unrecogniz ed section and content) Reason Comments Follow-up Reason Comments Follow-up lt tkr sx 07/20/18 Follow-up Reason Comments Pain Reason Comments Patient Update Reason Comments wellness Reason Comments Appointment Reason Comments Cough Productive cough wit h chest feeling some tightness x 1 week Reason Comments Refill Request Reason Comments Cough Productive cough Nasal Congestion X 2 weeks. Reason Comments URI Started: 1 monthSymp toms: SOB, Cough, chest tightness, DrainageTreatment: Prednisone, Zpack Covid Test: Negative Reason Comments Lab Orders Reason Comments Results Reason Comments Procedure Specialty Diagnoses / Procedures Referred By [facility] t Referred [facility] Contact [facility] Diagnoses Mild intermittent asthma with acute exacerbation SOB (shortness of breath) Procedures LUNG DIFFUSION CAPACITY (DLCO) DIFFUSING CAPACITY Lana Valentin APRN.NAILHEAD PUNCHER [address] [place] [address] [facility] [place] [address] [place] [id number] Referral ID Status Reason Start Date Expiration Date V isits Requested Visits Authorized [id number] Closed Auto-Generate d Referral 07/21/2022 07/20/2023 1 1 Specialty Diagnoses / Procedures [facility] Referred To Contact [facility] [place] Diagnoses Mild intermittent asthma with acute exacerbation SOB (shortness of breath) Procedures SPIROMETRY - BASELINE AND POST DILATOR BRNCDILAT RSPSE SPMTRY PRE&POST-BRNCDILAT ADMN aLna Valentin, CAMPGROUND MANAGER.NAILHEAD PUNCHER [address] [place] [address] [facility] [place] [phone] Referral ID Status Reason Start Date Expiration Date V isits Requested Visits Authorized [id number] Closed Auto-Generate d Referral 07/21/2022 07/20/2023 1 1 Reason Comments 4 week f/u asthma Reason Onset Date Comments Refill Request 01/03/2023 Reason Comments 4 month f/u asthma Reason Comments Cough Started: Friday S ymptoms: sore throat, cough, drainage, ears plugged, fatigue, headache.Treatment: none Covid Test: none Reason Comments Electronic Communication Forms Reason Comments 8 week f/u anxiety Cough Still has cough from 04/11/23 also itchy ears ,wheezing, nose is still runny. She finished course prednisone she wonders if she could get tessalon Per[place] Reason Comments Results Source Comments (unrecognize d section and content) In the event this informatio n is protected by the Federal Confidentiality of Alcohol and Drug Abuse Patient Records regulations: The Federal rules restrict any use of the information to criminally investigate or prosecute any alcohol or drug abuse patient.[facility] the event this information is protected by the Federal Confidentiality of Alcohol and Drug Abuse Patient Records regulations: The Federal rules restrict any use of the information to criminally investigate or prosecute any alcohol or drug abuse patient.[facility] Hospital[facility] the event this information is protected by the Federal Confidentiality of Alcohol and Drug Abuse Patient Records regulations: The Federal rules restrict any use of the information to criminally investigate or prosecute any alcohol or drug abuse patient.[facility] Hospital[facility] the event this information is protected by the Federal Confidentiality of Alcohol and Drug Abuse Patient Records regulations: The Federal rules restrict any use of the information to criminally investigate or prosecute any alcohol or drug abuse patient.[facility] Hospital[facility] the event this information is protected by the Federal Confidentiality of Alcohol and Drug Abuse Patient Records regulations: The Federal rules restrict any use of the information to criminally investigate or prosecute any alcohol or drug abuse patient.[facility] Hospital[facility] the event this information is protected by the Federal Confidentiality of Alcohol and Drug Abuse Patient Records regulations: The Federal rules restrict any use of the information to criminally investigate or prosecute any alcohol or drug abuse patient.[facility] Hospital[facility] the event this information is protected by the Federal Confidentiality of Alcohol and Drug Abuse Patient Records regulations: The Federal rules restrict any use of the information to criminally investigate or prosecute any alcohol or drug abuse patient.[facility] HospitalIn the event this information is protected by the Federal Confidentiality of Alcohol and Drug Abuse Patient Records regulations: The Federal rules restrict any use of the information to criminally investigate or prosecute any alcohol or drug abuse patient.[facility] HospitalIn the event this information is protected by the Federal Confidentiality of Alcohol and Drug Abuse Patient Records regulations: The Federal rules restrict any use of the information to criminally investigate or prosecute any alcohol or drug abuse patient.[facility] HospitalIn the event this information is protected by the Federal Confidentiality of Alcohol and Drug Abuse Patient Records regulations: The Federal rules restrict any use of the information to criminally investigate or prosecute any alcohol or drug abuse patient.[facility] HospitalIn the event this information is protected by the Federal Confidentiality of Alcohol and Drug Abuse Patient Records regulations: The Federal rules restrict any use of the information to criminally investigate or prosecute any alcohol or drug abuse patient.[facility] HospitalIn the event this information is protected by the Federal Confidentiality of Alcohol and Drug Abuse Patient Records regulations: The Federal rules restrict any use of the information to criminally investigate or prosecute any alcohol or drug abuse patient.[facility] HospitalIn the event this information is protected by the Federal Confidentiality of Alcohol and Drug Abuse Patient Records regulations: The Federal rules restrict any use of the information to criminally investigate or prosecute any alcohol or drug abuse patient.[facility] HospitalIn the event this information is protected by the Federal Confidentiality of Alcohol and Drug Abuse Patient Records regulations: The Federal rules restrict any use of the information to criminally investigate or prosecute any alcohol or drug abuse patient.[facility] HospitalIn the event this information is protected by the Federal Confidentiality of Alcohol and Drug Abuse Patient Records regulations: The Federal rules restrict any use of the information to criminally investigate or prosecute any alcohol or drug abuse patient.[facility] HospitalIn the event this information is protected by the Federal Confidentiality of Alcohol and Drug Abuse Patient Records regulations: The Federal rules restrict any use of the information to criminally investigate or prosecute any alcohol or drug abuse patient.[facility] HospitalIn the event this information is protected by the Federal Confidentiality of Alcohol and Drug Abuse Patient Records regulations: The Federal rules restrict any use of the information to criminally investigate or prosecute any alcohol or drug abuse patient.[facility] HospitalIn the event this information is protected by the Federal Confidentiality of Alcohol and Drug Abuse Patient Records regulations: The Federal rules restrict any use of the information to criminally investigate or prosecute any alcohol or drug abuse patient.[facility] HospitalIn the event this information is protected by the Federal Confidentiality of Alcohol and Drug Abuse Patient Records regulations: The Federal rules restrict any use of the information to criminally investigate or prosecute any alcohol or drug abuse patient.[facility] HospitalIn the event this information is protected by the Federal Confidentiality of Alcohol and Drug Abuse Patient Records regulations: The Federal rules restrict any use of the information to criminally investigate or prosecute any alcohol or drug abuse patient.[facility] HospitalIn the event this information is protected by the Federal Confidentiality of Alcohol and Drug Abuse Patient Records regulations: The Federal rules restrict any use of the information to criminally investigate or prosecute any alcohol or drug abuse patient.[facility] HospitalIn the event this information is protected by the Federal Confidentiality of Alcohol and Drug Abuse Patient Records regulations: The Federal rules restrict any use of the information to criminally investigate or prosecute any alcohol or drug abuse patient.[facility] HospitalIn the event this information is protected by the Federal Confidentiality of Alcohol and Drug Abuse Patient Records regulations: The Federal rules restrict any use of the information to criminally investigate or prosecute any alcohol or drug abuse patient.[facility] HospitalIn the event this information is protected by the Federal Confidentiality of Alcohol and Drug Abuse Patient Records regulations: The Federal rules restrict any use of the information to criminally investigate or prosecute any alcohol or drug abuse patient.[facility] HospitalIn the event this information is protected by the Federal Confidentiality of Alcohol and Drug Abuse Patient Records regulations: The Federal rules restrict any use of the information to criminally investigate or prosecute any alcohol or drug abuse patient.[facility] HospitalIn the event this information is protected by the Federal Confidentiality of Alcohol and Drug Abuse Patient Records regulations: The Federal rules restrict any use of the information to criminally investigate or prosecute any alcohol or drug abuse patient.[facility] HospitalIn the event this information is protected by the Federal Confidentiality of Alcohol and Drug Abuse Patient Records regulations: The Federal rules restrict any use of the information to criminally investigate or prosecute any alcohol or drug abuse patient.[facility] HospitalIn the event this information is protected by the Federal Confidentiality of Alcohol and Drug Abuse Patient Records regulations: The Federal rules restrict any use of the information to criminally investigate or prosecute any alcohol or drug abuse patient.[facility] HospitalIn the event this information is protected by the Federal Confidentiality of Alcohol and Drug Abuse Patient Records regulations: The Federal rules restrict any use of the information to criminally investigate or prosecute any alcohol or drug abuse patient.[facility] HospitalIn the event this information is protected by the Federal Confidentiality of Alcohol and Drug Abuse Patient Records regulations: The Federal rules restrict any use of the information to criminally investigate or prosecute any alcohol or drug abuse patient.[facility] Care Teams (unrecognized sec tion and content) Integration Software Engineer Relationship Specialty Start Date End Date Isai Ponce MD [address] [place], [place] [id number] PCP - General Internal Medicine 10/22/16 Integration Software Engineer Relationship Specialty Start Date End Date Lana Valentin APRN.[employer] [address] [place], [place] [id number] PCP - General Family Medicine 05/07/22 Integration Software Engineer Relationship Specialty Start Date End Date Lana Valentin, CAMPGROUND MANAGER.[employer] [address] [place] [address] PCP - General Family Medicine 05/07/22 Integration Software Engineer Relationship Specialty Start Date End Date Lana Valentin, CAMPGROUND MANAGER.NA[employer] [address] [place] [address] PCP - General Family Medicine 05/07/22 Integration Software Engineer Relationship Specialty Start Date End Date Lana Valentin, CAMPGROUND MANAGER.[employer] [address] [place] [address] PCP - General Family Medicine 05/07/22 Integration Software Engineer Relationship Specialty Start Date End Date Lana Valentin, CAMPGROUND MANAGER.[employer] [address] [place] [address] PCP - General Family Medicine 05/07/22 Integration Software Engineer Relationship Specialty Start Date End Date Lana Valentin, CAMPGROUND MANAGER.[employer] [address] [place] [address] PCP - General Family Medicine 05/07/22 Integration Software Engineer Relationship Specialty Start Date End Date Lana Valentin, CAMPGROUND MANAGER.NA[employer] [address] [place] [address] PCP - General Family Medicine 05/07/22 Integration Software Engineer Relationship Specialty Start Date End Date Lana Valentin, CAMPGROUND MANAGER.NAIL[employer] P[employer]CHER [address] [place] [address] PCP - General Family Medicine 05/07/22 Integration Software Engineer Relationship Specialty Start Date End Date Lana Valentin, CAMPGROUND MANAGER.[employer] [address] [place] [address] PCP - General Family Medicine 05/07/22 Integration Software Engineer Relationship Specialty Start Date End Date Lana Valentin A, CAMPGROUND MANAGER.NA[employer] [address] [place] [address] PCP - General Family Medicine 05/07/22 Integration Software Engineer Relationship Specialty Start Date End Date Lana Valentin A, CAMPGROUND MANAGER.NA[employer] [address] [place] [address] PCP - General Family Medicine 05/07/22 Integration Software Engineer Relationship Specialty Start Date End Date Lana Valentin A, CAMPGROUND MANAGER.NA[employer] [address] [place] [address] PCP - General Family Medicine 05/07/22 Integration Software Engineer Relationship Specialty Start Date End Date Lana Valentin, CAMPGROUND MANAGER.NA[employer] [address] [place] [address] PCP - General Family Medicine 05/07/22 Integration Software Engineer Relationship Specialty Start Date End Date Lana Valentin, CAMPGROUND MANAGER.NA[employer] [address] [place] [address] PCP - General Family Medicine 05/07/22 Integration Software Engineer Relationship Specialty Start Date End Date Lana Valentin A, CAMPGROUND MANAGER.NA[employer] [address] [place] [address] PCP - General Family Medicine 05/07/22 Integration Software Engineer Relationship Specialty Start Date End Date Lana Valentin A, CAMPGROUND MANAGER.NA[employer] [address] [place] [address] PCP - General Family Medicine 05/07/22 Integration Software Engineer Relationship Specialty Start Date End Date Lana Valentin, CAMPGROUND MANAGER.NA[employer] P[employer] [address] [place] [address] PCP - General Family Medicine 05/07/22 Integration Software Engineer Relationship Specialty Start Date End Date Lana Valentin, CAMPGROUND MANAGER.NAILHEAD PUNCHER [address] [place] [address] PCP - General Family Medicine 05/07/22 Integration Software Engineer Relationship Specialty Start Date End Date Lana Valentin, CAMPGROUND MANAGER.NAILHEAD PUNCHER [address] [place] [address] PCP - General Family Medicine 05/07/22 FOR RECORDS PERTAINING TO PATIENTS WHO ARE OR HAVE BEEN ENROLLED IN A CHEMICAL DEPENDENCY/SUBSTANCEABUSE PROGRAM, SOME INFORMATION MAY BE OMITTED. This clinical summary was aggregated from multiple sources. Caution should be exercised in using it in the provision of clinical care. This summary normalizes information from multiple sources, and as a consequence, information in this document may materially change the coding, format and clinical context of patient data. In addition, data may be omitted in some cases. CLINICAL DECISIONS SHOULD BE BASED ON THE PRIMARY CLINICAL RECORDS. [employer] [facility]. provides no warranty or guarantee of the accuracy or completeness of information in this document.
[2023-08-26 07:08] LABS: Alternaria tenuis <0.10 kU/L (Class 0); Ash, White 0.17 kU/L (Class 0/I); Aspergillus fumigatus <0.10 kU/L (Class 0); Bermuda Grass 0.34 kU/L (Class I); Birch <0.10 kU/L (Class 0); Black Walnut 0.16 kU/L (Class 0/I); Cedar, Mountain <0.10 kU/L (Class 0); Cladosporium herbarum <0.10 kU/L (Class 0); Cockroach, American <0.10 kU/L (Class 0); Cottonwood 0.14 kU/L (Class 0/I); D farinae Mite <0.10 kU/L (Class 0); D pteronyssinus <0.10 kU/L (Class 0); Dog Epithelia 2.21 kU/L (Class III); Elm, American White <0.10 kU/L (Class 0); Immunoglobulin E 137 IU/mL (6-495); Mouse Urine <0.10 kU/L (Class 0); Mulberry, White <0.10 kU/L (Class 0); Oak, White 0.11 kU/L (Class 0/I); Pecan <0.10 kU/L (Class 0); Penicillium Notatum <0.10 kU/L (Class 0); Pigweed, Rough <0.10 kU/L (Class 0); Ragweed, Short/Common 0.54 kU/L (Class I); Russian Thistle <0.10 kU/L (Class 0); Sheep Sorrel <0.10 kU/L (Class 0); Sycamore, American 0.12 kU/L (Class 0/I); Timothy Grass 2.18 kU/L (Class III)
[2023-08-26 17:07] LABS: Aspirgillus flavus Negative (Neg:<1:1); Aspirgillus fumigatus Negative (Neg:<1:1); Aspirgillus niger Negative (Neg:<1:1); Immunoglobulin E 142 IU/mL (6-495)
== END | disposition home or self-care (01) ==
LOC: PAVLAB 08:46
PROVIDERS: PCP Internal Medicine; Referring Provider Internal Medicine Critical Care Medicine; Visit Provider Internal Medicine Critical Care Medicine
DX: J45.909 Unspecified asthma, uncomplicated (principal)
CPT/HCPCS: 36415; 82785; 85025; 86003; 86606

== ENCOUNTER → 2023-08-26 | Outpatient (CLI) | payer MEDICARE, SELFPAY | END | disposition home or self-care (01) | LOC: PSN 08:23 | PROVIDERS: PCP Internal Medicine; Visit Provider Internal Medicine Critical Care Medicine | DX: J45.909 Unspecified asthma, uncomplicated (principal) | CPT/HCPCS: 94060; 94726; 94729 ==

== ENCOUNTER 2024-08-15 06:17 | Emergency (ER) | payer MEDICARE, SELFPAY ==
[2024-08-15 06:18] VITALS: BP 157/135; BP 160/85; PULSE 74; PULSE 75; RESP 18; TEMP 36.6; O2SAT 93; O2SAT 95; BMI 32.8
--- NOTE | 2024-08-15 06:40 | CT_ITS ---
EXAM: CT ABDOMEN AND PELVIS WITHOUT INTRAVENOUS CONTRAST CLINICAL INDICATION: Kidney Stone-RIGHT SIDED PAIN TECHNIQUE: Helically acquired images were obtained of the abdomen and pelvis without intravenous contrast. This CT exam was performed using one or more of the following dose reduction techniques: automated exposure control, adjustment of the mA and/or kV according to patient size, and/or use of iterative reconstruction technique. RADIATION DOSE: CTDIvol = 11.23 mGy, DLP = 594.63 mGy-cm COMPARISON: No relevant prior studies available. FINDINGS: LOWER THORAX: Large hiatal hernia. Coronary artery calcifications. Lung bases are clear. No cardiomegaly. No significant pericardial effusion. ABDOMEN: LIVER: Unremarkable. Homogeneous. GALLBLADDER AND BILE DUCTS: Unremarkable. No calcified gallstones. No gallbladder distention or wall edema. No intra- or extrahepatic biliary ductal dilation. PANCREAS: Unremarkable. No focal cystic mass. SPLEEN: Mild splenomegaly. ADRENALS: Unremarkable. No nodules. KIDNEYS AND URETERS: Mild right hydroureteronephrosis due to a 3 mm stone at the right ureterovesical junction. Normal renal size and position. STOMACH AND BOWEL: Unremarkable. No stomach or bowel distention. No focal inflammatory change. PELVIS: APPENDIX: No evidence of acute appendicitis. BLADDER: Unremarkable. REPRODUCTIVE: Unremarkable as visualized. No mass. ABDOMEN and PELVIS: INTRAPERITONEAL SPACE: Unremarkable. No ascites or other fluid collection. No free air. BONES/JOINTS: Unremarkable. No suspicious lytic or blastic abnormality. SOFT TISSUES: Unremarkable. No discrete abdominal or pelvic wall hernia. VASCULATURE: See above. LYMPH NODES: Unremarkable. No enlarged lymph nodes. OTHER FINDINGS: Nonobstructing stone measuring 5 mm in the right lower pole collecting system. CT/Abdomen/Pelvis without Cont IMPRESSION: 1. Mild right hydroureteronephrosis due to a 3 mm stone at the right ureterovesical junction. 2. Large hiatal hernia. 3. Coronary artery disease. 4. Mild splenomegaly. 5. Nonobstructing stone measuring 5 mm in the right lower pole collecting system. Electronically Signed: Kofi Gonzalez MD at 8:01 EST ,
[2024-08-15] MEDS: 0.9% Normal Saline (1000mL) 1,000 ML 250 ML IV (06:47)
[2024-08-15] MEDS: Ondansetron 4 MG/2 ML Vial IV (06:47)
[2024-08-15] MEDS: Morphine 4 MG/ML Syringe IV (06:48)
[2024-08-15 06:55] LABS: Mucous, Urine 0 SEEN /hpf (<or=2+)
[2024-08-15 07:02] LABS: Color, Urine Yellow (Yellow); Glucose, Dipstick Normal (Normal); Ketone-Dipstick Negative (Negative); Leukocyte Esterase-Dipstick 100 /ul (Negative); Nitrite-Dipstick Negative (Negative); Occult Blood-Urine 250 /ul (Negative); Protein-Dipstick 30 mg/dl (Negative); Specific Gravity, Urine 1.025 (1.002-1.030); Urine Bilirubin Dipstick Negative (Negative); Urine Clarity Cloudy (Clear); Urine Urobilinogen Normal (Normal)
--- NOTE | 2024-08-15 07:17 | EDS_ITS ---
HPI <Dr. Vicki Moralez DO - Last Filed: 08/16/24 08:24> History of Present Illness Chief Complaint: Abd Pain Informant: patient Narrative Narrative: Patient is 73-year-old female with history of kidney stones (has never needed any type of manipulation or surgery to pass them) presenting with right groin pain and urinary pressure. Patient states she started having symptoms yesterday and thought she was may be developing a UTI. Around 10:45 AM she had increased pain now more of her right flank and developed dry heaves. She states the pain comes in waves. She denies any dysuria. Denies any fever or chills. She does note that she had a fall 2 days ago and landed on her right knee. I was not having this groin/hip pain immediately after the fall. Did not hit her head. Is not on any blood thinners. Has not taken anything for pain prior to arrival. No other complaints or concerns reported at this time. PFSH <Dr. Vicki Moralez DO - Last Filed: 08/16/24 08:24> [facility] Home Medications ?Medication ?Instructions ?Recorded ?Last Taken ?Type albuterol sulfate 90 mcg/actuation 1 - 2 puff inhalation Q6H PRN PRN 02/28/20 Unknown History aerosol inhaler Asthma atorvastatin 20 mg tablet 20 mg PO QHS 08/20/23 Unknown History loratadine 10 mg tablet (Claritin) 10 mg PO DAILY 08/20/23 Unknown History budesonide-formoterol HFA 160 2 puff inhalation BID #10.2 grams 08/21/23 Unknown Rx mcg-4.5 mcg/actuation aerosol inhaler (Symbicort) oxycodone-acetaminophen 5 mg-325 1 tab PO Q6H PRN PRN pain 5 days 08/15/24 Unknown Rx mg tablet #20 TABLETS pantoprazole 20 mg tablet,delayed 20 mg PO DAILY 08/15/24 Unknown History release (Protonix) sulfamethoxazole 800 1 tab PO BID #14 TABLETS 08/15/24 Unknown Rx mg-trimethoprim 160 mg tablet Allergy/AdvReac Type Severity Reaction Status Date / Time amoxicillin Allergy Hives Verified 08/15/24 06:22 Family History Mother Alzheimer disease Father Heart disease Aunt Cancer breast Brother Emphysema lung COPD (chronic obstructive pulmonary disease) Surgical History History of tubal ligation H/O bilateral cataract extraction History of parotid gland removal History of left knee surgery Social History Smoking Status: Never smoker ROS <Dr. Vicki Moralez DO - Last Filed: 08/16/24 08:24> ROS ED Constitutional Constitutional ED: Denies chills or fever(s) Cardiovascular Cardiovascular: Denies chest pain Respiratory/Chest Respiratory/Chest: Denies cough or dyspnea Gastrointestinal Gastrointestinal: Reports other; Denies abdominal pain, nausea or vomiting Genitourinary Genitourinary ED: Reports other Details: Right groin pain ; Denies dysuria or hematuria Musculoskeletal Musculoskeletal: Denies arthralgias or myalgias Neurologic Neurologic: Denies paresthesias or weakness Hematologic/Lymphatic Hematologic/Lymphatic: Denies easy bleeding or easy bruising EXAM <Dr. Vicki Moralez DO - Last Filed: 08/16/24 08:24> Physical Exam Const Vital Signs: 08/15/24 08:28 Temperature 98.0 F Pulse Rate 87 Respiratory Rate 16 Blood Pressure 141/74 H Blood Pressure Mean 96 Pulse Ox 99 Positive well nourished and well developed General Appearance ED: well developed and NAD HEENT Reports moist mucous membranes Chest Wall inspection of chest normal Resp normal respiratory effort and clear to auscultation bilaterally GI normal to inspection, nondistended, normoactive bowel sounds and non-tender Palpation: soft; Negative for tender or guarding Back/Spine no CVA tenderness Extremity normal to inspection Extremity Narrative: Slight bruising noted to the anterior inferior aspect of the right knee consistent with recent fall. No joint effusion. Normal range of motion of the knee. Normal extensor mechanism. Neuro oriented x3 Sensorium / Orientation: alert Psych mental status grossly normal Skin no rashes or lesions noted <Dr. Nam Chávez MD - Last Filed: 08/15/24 08:21> Physical Exam Const Vital Signs: 08/15/24 08:28 Temperature 98.0 F Pulse Rate 87 Respiratory Rate 16 Blood Pressure 141/74 H Blood Pressure Mean 96 Pulse Ox 99 MDM <Dr. Vicki Moralez DO - Last Filed: 08/16/24 08:24> MDM MDM Narrative Medical decision making narrative: Patient's evaluated for worsening right groin pain. She started with some urinary pressure yesterday. States it feels like her prior kidney stones. Has associated dry heaves. Differential includes urinary tract infection, pyelonephritis, skeletal pain and renal colic/passing a kidney stone. Vital signs significant for mild hypertension. Patient given IV fluids, morphine and Zofran for symptom control in the emergency room. Will obtain CBC, BMP to assess for renal function as well as urinalysis. Will obtain CT of the abdomen pelvis. Patient's BMP shows minimally elevated creatinine of 1.07. No baseline to compare to. Urinalysis consistent with kidney stone with greater than 100 red blood cells. CBC and CT pending. Patient be signed out oncoming physician pending repeat evaluation and final results. Anticipate if adequate pain control patient can be discharged home with outpatient urology follow-up. Lab Data Labs: Laboratory Results - last 24 hr 08/15/24 06:30 WBC 4.4 RBC 4.81 Hgb 12.4 Hct 38.0 MCV 79.0 L MCH 25.8 L MCHC 32.6 RDW Std Deviation 39.1 RDW Coeff of Ary 13.7 Plt Count MPV 10.6 Immature Gran % (Auto) 0.700 Neut % (Auto) 65.1 Lymph % (Auto) 25.5 [place] % (Auto) 4.1 Eos % (Auto) 4.1 Baso % (Auto) 0.5 Absolute Neuts (auto) 2.8 Absolute Lymphs (auto) 1.11 Nucleated RBC % 0 Differential Comment SCANNED Platelet Estimate SLT DEC RBC Morphology NORM C+C Radiography Diagnostic Testing: Clinical Impression(s) from Imaging Studies Abdomen/Pelvis CT 08/15/24 06:40 IMPRESSION: 1. Mild right hydroureteronephrosis due to a 3 mm stone at the right ureterovesical junction. 2. Large hiatal hernia. 3. Coronary artery disease. 4. Mild splenomegaly. 5. Nonobstructing stone measuring 5 mm in the right lower pole collecting system. Electronically Signed: Kofi Gonzalez MD at 8:01 EST , <Dr. Nam Chávez MD - Last Filed: 08/15/24 08:21> [facility] Lab Data Attestation: I reviewed the patient's lab results. Lab results narrative: BMP reveals slight elevation of creatinine of 1.07 with estimated GFR 53. Glucose is elevated 159 with a normal CO2 anion gap. BUN to creatinine ratio is elevated at 22-1. Urinalysis reveals hematuria with 1+ bacteria. Since patient has an obstructing stone we will send urine culture and treat with antibiotics. Patient was referred to urology, Dr. Bay is on for no doc if she does not have a physician. Labs: Laboratory Results - last 24 hr 08/15/24 06:30 WBC 4.4 RBC 4.81 Hgb 12.4 Hct 38.0 MCV 79.0 L MCH 25.8 L MCHC 32.6 RDW Std Deviation 39.1 RDW Coeff of Ary 13.7 Plt Count MPV 10.6 Immature Gran % (Auto) 0.700 Neut % (Auto) 65.1 Lymph % (Auto) 25.5 [place] % (Auto) 4.1 Eos % (Auto) 4.1 Baso % (Auto) 0.5 Absolute Neuts (auto) 2.8 Absolute Lymphs (auto) 1.11 Nucleated RBC % 0 Differential Comment SCANNED Platelet Estimate SLT DEC RBC Morphology NORM C+C Radiography Chest X-Ray - ED: - (CT was reviewed by me at change of shift. Patient is noted to have a 3 to 4 mm obstructing stone right UVJ with hydroureter hydronephrosis. There is also a 5 to 6 mm stone pelvis of the kidney. Awaiting formal read by radiologist) Diagnostic Testing: Clinical Impression(s) from Imaging Studies Abdomen/Pelvis CT 08/15/24 06:40 IMPRESSION: 1. Mild right hydroureteronephrosis due to a 3 mm stone at the right ureterovesical junction. 2. Large hiatal hernia. 3. Coronary artery disease. 4. Mild splenomegaly. 5. Nonobstructing stone measuring 5 mm in the right lower pole collecting system. Electronically Signed: Kofi Gonzalez MD at 8:01 EST , Radiology report was noted. Patient does have a large hiatal hernia as well as coronary disease and mild splenomegaly. Treatment and Re-Evaluation :: Patient was informed of results. She states her pain is a 6. She feels comfortable going home with pain medicine. She has allergy to amoxicillin with hives. Will treat with Bactrim. Will also send urine culture. Discharge Plan Triage Chief Complaint: Abd Pain ED Provider: Vicki Moralez Dx/Rx/DC Orders Clinical Impression: Renal colic on right side, Hydronephrosis with urinary obstruction due to ureteral calculus, Right kidney stone, Bacteriuria, Hematuria, Elevated blood- pressure reading without diagnosis of hypertension Instructions: ED Hypertension, To Be Confirmed, ED Kidney Stone with Pain Prescriptions: New oxycodone-acetaminophen 5-325 mg tablet 1 tab PO Q6H PRN PRN (Reason: pain) 5 Days Qty: 20 0RF sulfamethoxazole-trimethoprim 800-160 mg tablet 1 tab PO BID Qty: 14 0RF No Action atorvastatin 20 mg tablet 20 mg PO QHS loratadine [Claritin] 10 mg tablet 10 mg PO DAILY budesonide-formoterol [Symbicort] 160-4.5 mcg/actuation HFA aerosol inhaler 2 puff inhalation BID Qty: 10.2 6RF albuterol sulfate 1 INHALER inhaler 1 - 2 puff inhalation Q6H PRN PRN (Reason: Asthma) pantoprazole [Protonix] 20 mg tablet,delayed release (DR/EC) 20 mg PO DAILY Primary Care Provider: Lana Lizarraga NP Referrals: Paras Bay MD [Med Staff - Active Staff] - 5-7 Days Lana Lizarraga NP, [employer] [Primary Care Provider] - 1-2 Weeks Activity Restrictions/Additional Instructions: 1. Follow-up with your provider for blood pressure check in 1 to 2 weeks 2. You were referred to Dr. Bay since you have an obstructing stone. 3. If you develop temperature greater than 100, have shaking chills return to the emergency department immediately. 4. There is a 95% chance she will pass the stone. If you develop vomiting and unable to eat or drink anything, pain not controlled by medicine prescribed or note gross blood with clots return to the emergency department Print Language: Taiwanese Disposition Disposition: Home, Self Care Discharge Date/Time: 08/15/24 08:34
[2024-08-15 07:26] LABS: Bacteria 1+ /hpf (None Seen); Red Blood Cells-Urine > 100 SEEN /hpf (0-5); Squamous Epithelial Cells - UA 0-5 SEEN /hpf (5-10); White Blood Cells 0-5 SEEN /hpf (0-5)
[2024-08-15 07:28] LABS: Anion Gap 6 (5-15); BUN 24 mg/dL (7-18); BUN/Creat Ratio 22.4 RATIO (10-20); Calcium,Total 9.3 mg/dL (8.5-10.1); Chloride 110 mmol/L (98-107); Creatinine, Serum 1.07 mg/dL (0.55-1.02); EST Glomerular Filtration Rate 53 mL/min (>60); Est Glom Filt Rate - Afr Amer 64 mL/min (>60); Estimated Creatinine Clearance 49.21 ml/min; Glucose 159 mg/dL (74-106); Potassium 4.1 mmol/L (3.5-5.1); Sodium Level 140 mmol/L (136-145)
[2024-08-15 08:28] VITALS: BP 141/74; PULSE 87; RESP 16; TEMP 36.7; O2SAT 99
[2024-08-15] MEDS: Smz/Tmp Ds Tablet 1 TABLET PO (08:34)
[2024-08-15 09:37] LABS: Absolute Lymphocyte Count 1.11 X10^3/uL (0.83-4.51); Absolute Neutrophil Count 2.8 X10^3/uL (2.0-7.7); Basophil# 0.02 X10^3/uL; Basophil% 0.5 % (0-1); Eosinophil# 0.18 X10^3/uL; Eosinophils% 4.1 % (0-5); Hemoglobin 12.4 g/dL (12.0-15.0); Lymphocyte # 1.11 X10^3/ul (0.83-4.51); Lymphocyte % 25.5 % (19-41); Mean Corp Hgb Conc 32.6 g/dL (32-36); Mean Corpuscular Hgb 25.8 pg (27.0-32.0); Mean Platelet Vol. 10.6 fl (6.2-12.0); Monocyte# 0.18 X10^3/uL; Monocyte% 4.1 % (0-10); NRBC Flagged by Analyzer 0 % (0-5); Neutrophil # 2.84 X10^3/uL (2.7-7.7); Neutrophil % 65.1 % (47-70); POSITIVE COUNT YES; RBC Distribution Width CV 13.7 % (11.6-14.6); RBC Distribution Width SD 39.1 fl (35.1-43.9); Red Blood Count 4.81 M/mm3 (4.2-5.4); White Blood Count 4.4 K/mm3 (4.4-11.0)
[2024-08-15 09:42] LABS: Differential Indicated SCAN CRITERIA MET
[2024-08-15 10:12] LABS: Differential Comment SCANNED; Platelet Estimate SLT DEC (ADEQ); Red Cell Morphology NORM C+C NORMAL (NORM C&C)
== END 2024-08-15 08:34 | disposition home or self-care (01) ==
PROVIDERS: Emergency Provider Emergency Medicine; PCP Nurse Practitioner Family; Visit Provider Emergency Medicine
DX: N13.2 Hydronephrosis with renal and ureteral calculous obstruction (principal); R82.71 Bacteriuria; R03.0 Elevated blood-pressure reading, without diagnosis of hypertension; N23 Unspecified renal colic; R11.10 Vomiting, unspecified; R31.9 Hematuria, unspecified; I25.10 Atherosclerotic heart disease of native coronary artery without angina pectoris; K44.9 Diaphragmatic hernia without obstruction or gangrene; Z98.51 Tubal ligation status; Z87.442 Personal history of urinary calculi
CPT/HCPCS: 74176; 80048; 81001; 85025; 87086; 87088; 96361; 96374; 96375; 99283; A4216; J2405

== ENCOUNTER 2024-08-18 08:58 | Emergency (ER) | payer MEDICARE, SELFPAY ==
[2024-08-18 08:58] VITALS: BP 131/95; PULSE 79; RESP 20; TEMP 35.8; O2SAT 100; BMI 32.2
[2024-08-18 09:00] VITALS: BP 176/86; PULSE 73; RESP 20; TEMP 36.8; O2SAT 99
--- NOTE | 2024-08-18 09:16 | ED.VIS.GI ---
HPI HPI - GI History of Present Illness Chief Complaint: Flank Pain Informant: patient and spouse/S.O. Narrative Narrative: 73-year-old female had right flank pain start 3 days ago, she was seen here and diagnosed with a kidney stone. She was given prescriptions for oxycodone and an antibiotic. She said the pain was doing well, last night she did not have pain but she took an oxycodone anyway before she went to bed, and woke up at 5 AM in severe pain, the exact same pain in the same location, and lots of vomiting to the point where she was not able to take another oxycodone this morning or even try. She denies any new symptoms. No hematuria, fevers or chills, syncope. [facility] Medical History (Updated 08/18/24 @ 10:[address] Bartolo Lombardi MD) Elevated blood-pressure reading without diagnosis of hypertension Hydronephrosis with urinary obstruction due to ureteral calculus Renal colic on right side Pleomorphic adenoma of parotid gland Environmental allergies Asthma Home Medications ?Medication ?Instructions ?Recorded ?Last Taken ?Type albuterol sulfate 90 mcg/actuation 1 - 2 puff inhalation Q6H PRN PRN 02/28/20 08/13/24 History aerosol inhaler Asthma atorvastatin 20 mg tablet 20 mg PO QHS 08/20/23 08/16/24 History loratadine 10 mg tablet (Claritin) 10 mg PO DAILY 08/20/23 08/17/24 History budesonide-formoterol HFA 160 2 puff inhalation BID #10.2 grams 08/21/23 08/13/24 Rx mcg-4.5 mcg/actuation aerosol inhaler (Symbicort) oxycodone-acetaminophen 5 mg-325 1 tab PO Q6H PRN PRN pain 5 days 08/15/24 08/17/24 Rx mg tablet #20 TABLETS pantoprazole 20 mg tablet,delayed 20 mg PO DAILY 08/15/24 08/17/24 History release (Protonix) ondansetron 8 mg disintegrating 8 mg PO Q8H PRN nausea and 08/18/24 Unknown Rx tablet vomiting #20 tabs tamsulosin 0.4 mg capsule 0.4 mg PO DAILY #7 caps 08/18/24 Unknown Rx Allergy/AdvReac Type Severity Reaction Status Date / Time amoxicillin Allergy Hives Verified 08/18/24 09:36 Family History Mother Alzheimer disease Father Heart disease Aunt Cancer breast Brother Emphysema lung COPD (chronic obstructive pulmonary disease) Surgical History History of tubal ligation H/O bilateral cataract extraction History of parotid gland removal History of left knee surgery Social History Smoking Status: Never smoker ROS ROS ED Constitutional Constitutional ED: Denies chills or fever(s) Eyes Eyes: Denies change in vision or diplopia ENT ENT ED: Denies rhinorrhea or sore throat Cardiovascular Cardiovascular: Denies chest pain or palpitations Respiratory/Chest Respiratory/Chest: Denies cough or dyspnea Gastrointestinal Gastrointestinal: Reports abdominal pain, nausea and vomiting; Denies diarrhea Genitourinary Genitourinary ED: Reports flank pain; Denies dysuria or hematuria Musculoskeletal Musculoskeletal: Reports back pain; Denies neck pain Integumentary Denies abscess or rash Neurologic Neurologic: Denies headache(s), paresthesias or weakness Psychiatric Psychiatric: Denies anxiety or suicidal thoughts EXAM Physical Exam Const Vital Signs: 08/18/24 08:58 08/18/24 09:00 08/18/24 10:00 Temperature 96.5 F L 98.3 F 97.9 F Temperature Source Temporal Oral Oral Pulse Rate 79 73 72 Respiratory Rate 20 H 20 H 15 Blood Pressure 131/95 H 176/86 H 129/61 H Blood Pressure Mean 107 116 83 Pulse Ox 100 99 93 Oxygen Delivery Method Room Air Room Air Room Air Positive well nourished and well developed Constitutional Narrative: No distress well-appearing General Appearance ED: well developed and NAD HEENT Reports moist mucous membranes normocephalic and atraumatic Eyes PERRL and EOMs intact bilaterally Neck full ROM and supple Resp normal respiratory effort and clear to auscultation bilaterally Cardio regular rate, regular rhythm and no murmurs GI non-tender and non-distended Auscultation: normoactive bowel sounds Palpation: soft Back/Spine Back/Spine Narrative: Very mild subjective CVA tenderness on the right only. Normal inspection. General Back: other FROM Extremity normal to inspection General Extremety ED: Negative for edema, pulses abnormal or tenderness General Extremity: Negative for edema or pulses abnormal Neuro oriented x3, CN's II-XII intact bilaterally and no sensory deficits noted Sensorium / Orientation: awake and alert Motor Exam: strength 5/5 throughout Skin no rashes or lesions noted and no wounds MDM MDM MDM Narrative Medical decision making narrative: Initially gave the patient Zofran and morphine which helped her pain but she was still describing her pain as a 5/6 out of 10, and wanted something else that she was given fentanyl 25 mcg, which really helped and she is doing much better. Her stone is 3 mm and UVJ. Culture is negative, see below. Her creatinine is up just a little bit from her last value, currently 1.25, not enough to require emergent intervention on this stone that is small and likely to pass on its own, and not enough to require admission to the hospital given that she is tolerating oral fluids now that she had some Zofran. I am going to give her a prescription for Zofran, she has oxycodone, and I am going to give her a prescription for Flomax, and asked her to discontinue the ciprofloxacin which does not appear to be indicated. We discussed reasons to return, she is comfortable with that plan and continuing expectant management. She was also given strainers to go home with. History & Record Review Additional record(s) reviewed:: Prior ED visit (Right 3 mm UVJ stone obstructing; nonobstructing right renal 5 mm stone. No infection on urinalysis.) and Prior labs (Outpatient urine culture from 3 days ago negative) Lab Data Attestation: I reviewed the patient's lab results. Labs: Laboratory Results - last 24 hr 08/18/24 09:10 WBC 4.9 RBC 5.12 Hgb 12.8 Hct 39.9 MCV 77.9 L MCH 25.0 L MCHC 32.1 RDW Std Deviation 38.6 RDW Coeff of Ary 13.6 Plt Count 164 MPV 10.0 Immature Gran % (Auto) 0.600 Neut % (Auto) 75.6 H Lymph % (Auto) 17.7 L Wake % (Auto) 3.9 Eos % (Auto) 2.0 Baso % (Auto) 0.2 Absolute Neuts (auto) 3.7 Absolute Lymphs (auto) 0.87 Nucleated RBC % 0 Sodium 138 Potassium 3.8 Chloride 105 Carbon Dioxide 23.0 Anion Gap 11 BUN 18 Creatinine 1.25 H Estim Creat Clear Calc 41.72 Est GFR (MDRD) Af Amer 54 L Est GFR (MDRD) Non-Af 44 L BUN/Creatinine Ratio 14.4 Glucose 152 H Calcium 9.1 Discharge Plan Triage Chief Complaint: Flank Pain ED Provider: Bartolo Lombardi Dx/Rx/DC Orders Clinical Impression: Ureterolithiasis, Right nephrolithiasis, Ureteral colic Instructions: ED Urine Strainer, ED Kidney Stone with Pain Prescriptions: New ondansetron 8 mg tablet,disintegrating 8 mg PO Q8H PRN (Reason: nausea and vomiting) Qty: 20 0RF tamsulosin 0.4 mg capsule 0.4 mg PO DAILY Qty: 7 0RF Continued atorvastatin 20 mg tablet 20 mg PO QHS loratadine [Claritin] 10 mg tablet 10 mg PO DAILY budesonide-formoterol [Symbicort] 160-4.5 mcg/actuation HFA aerosol inhaler 2 puff inhalation BID Qty: 10.2 6RF albuterol sulfate 1 INHALER inhaler 1 - 2 puff inhalation Q6H PRN PRN (Reason: Asthma) pantoprazole [Protonix] 20 mg tablet,delayed release (DR/EC) 20 mg PO DAILY oxycodone-acetaminophen 5-325 mg tablet 1 tab PO Q6H PRN PRN (Reason: pain) 5 Days Qty: 20 0RF Discontinued sulfamethoxazole-trimethoprim 800-160 mg tablet 1 tab PO BID Qty: 14 0RF Primary Care Provider: Lana Lizarraga NP Referrals: Paras Bay MD [Med Staff - Active Staff] - 3-5 Days if not improving Activity Restrictions/Additional Instructions: Strain all of your urine. If you catch a stone, then you may discontinue the tamsulosin. Print Language: Indonesian Disposition Disposition: Home, Self Care
[2024-08-18] MEDS: Ondansetron 4 MG/2 ML Vial IV (09:26)
[2024-08-18] MEDS: Morphine 4 MG/ML Syringe IV (09:26)
--- NOTE | 2024-08-18 09:35 | ED.RN ---
PT HAS PROCEDURE PLANNED WITH DR CHÁVEZ D/T KIDNEY STONES. PT SAID SHE WAS FINE ON FRIDAY BUT IN THE [employer] HOURS TODAY SHE WAS HAVING SEVERE PAIN WITH N/V. PT CALLED [facility] AND THEY ADVISED PT TO COME IN.
[2024-08-18 09:49] LABS: Anion Gap 11 (5-15); BUN 18 mg/dL (7-18); BUN/Creat Ratio 14.4 RATIO (10-20); Calcium,Total 9.1 mg/dL (8.5-10.1); Chloride 105 mmol/L (98-107); Creatinine, Serum 1.25 mg/dL (0.55-1.02); EST Glomerular Filtration Rate 44 mL/min (>60); Est Glom Filt Rate - Afr Amer 54 mL/min (>60); Estimated Creatinine Clearance 41.72 ml/min; Glucose 152 mg/dL (74-106); Potassium 3.8 mmol/L (3.5-5.1); Sodium Level 138 mmol/L (136-145)
[2024-08-18 10:00] VITALS: BP 129/61; PULSE 72; RESP 15; TEMP 36.6; O2SAT 93
[2024-08-18 10:06] LABS: Absolute Lymphocyte Count 0.87 X10^3/uL (0.83-4.51); Absolute Neutrophil Count 3.7 X10^3/uL (2.0-7.7); Basophil# 0.01 X10^3/uL; Basophil% 0.2 % (0-1); Hematocrit 39.9 % (37-47); Hemoglobin 12.8 g/dL (12.0-15.0); Lymphocyte # 0.87 X10^3/ul (0.83-4.51); Lymphocyte % 17.7 % (19-41); Mean Corp Hgb Conc 32.1 g/dL (32-36); Mean Corpuscular Volume 77.9 fL (81-99); Monocyte# 0.19 X10^3/uL; Monocyte% 3.9 % (0-10); NRBC Flagged by Analyzer 0 % (0-5); Neutrophil # 3.72 X10^3/uL (2.7-7.7); Neutrophil % 75.6 % (47-70); Platelet Count 164 K/mm3 (150-450); RBC Distribution Width CV 13.6 % (11.6-14.6); RBC Distribution Width SD 38.6 fl (35.1-43.9); Red Blood Count 5.12 M/mm3 (4.2-5.4); White Blood Count 4.9 K/mm3 (4.4-11.0)
[2024-08-18] MEDS: fentaNYL 100 MCG/2 ML Ampul 25 MCG IV (10:06)
[2024-08-18 10:49] VITALS: BP 135/62; PULSE 61; RESP 16; TEMP 36.5; O2SAT 98
== END 2024-08-18 10:50 | disposition home or self-care (01) ==
PROVIDERS: Emergency Provider Emergency Medicine; PCP Nurse Practitioner Family; Visit Provider Emergency Medicine
DX: N20.2 Calculus of kidney with calculus of ureter (principal); J45.909 Unspecified asthma, uncomplicated; Z98.51 Tubal ligation status
CPT/HCPCS: 80048; 85025; 96374; 96375; 99283; A4216; J2405

== ENCOUNTER → 2024-08-20 | Outpatient (CLI) | payer MEDICARE, SELFPAY ==
--- NOTE | 2024-08-20 08:26 | EKG12_ITS ---
Test Reason : PREOP Blood Pressure : */* mmHG Vent. Rate : 72 BPM Atrial Rate : 72 BPM P-R Int : 170 ms QRS Dur : 84 ms QT Int : 374 ms P-R-T Axes : 19 10 39 degrees QTcB Int : 409 ms Normal sinus rhythm Normal ECG Confirmed by YOLANDA RUIZ, WENDY ([id number]), film and video editor STEPHANIA LOPEZ ([id number]) on 08/23/2024 6:08:51 AM Referred By: Paras Bay Confirmed By: WENDY GUERRERO MD
[2024-08-20 09:06] LABS: Hematocrit 38.2 % (37-47); Hemoglobin 12.5 g/dL (12.0-15.0); Mean Corp Hgb Conc 32.7 g/dL (32-36); Mean Corpuscular Hgb 25.7 pg (27.0-32.0); Mean Corpuscular Volume 78.6 fL (81-99); Mean Platelet Vol. 9.2 fl (6.2-12.0); Platelet Count 166 K/mm3 (150-450); RBC Distribution Width CV 13.9 % (11.6-14.6); RBC Distribution Width SD 39.2 fl (35.1-43.9); Red Blood Count 4.86 M/mm3 (4.2-5.4); White Blood Count 3.8 K/mm3 (4.4-11.0)
[2024-08-20 10:39] LABS: Anion Gap 6 (5-15); BUN 18 mg/dL (7-18); BUN/Creat Ratio 15.8 RATIO (10-20); Chloride 107 mmol/L (98-107); Creatinine, Serum 1.14 mg/dL (0.55-1.02); EST Glomerular Filtration Rate 49 mL/min (>60); Est Glom Filt Rate - Afr Amer 60 mL/min (>60); Glucose 140 mg/dL (74-106); Sodium Level 137 mmol/L (136-145)
== END | disposition home or self-care (01) ==
PROVIDERS: PCP Nurse Practitioner Family; Referring Provider Urology; Visit Provider Urology
DX: Z01.810 Encounter for preprocedural cardiovascular examination (principal); Z01.812 Encounter for preprocedural laboratory examination
CPT/HCPCS: 36415; 80048; 85027; 93005

== ENCOUNTER → 2024-08-27 | Outpatient (CLI) | payer MEDICARE, SELFPAY ==
--- NOTE | 2024-08-27 12:30 | CALC_PTH ---
PATIENT: TRISH HEREDIA LOC: [facility] U#:[id number] AGE/SX: 73/F ROOM: RE08/27/[address]: Dr. Paras Bay MD : 1950 BED: DIS: 08/27/2024 SPEC #: [id number] RECD: 08/27/24 16:47 STATUS: JUSTIN BROWN #: [id number] SINA: 08/27/24 12:[address]: Paras Bay DEPT: SURGICAL PATHOLOGY RECD BY: Sammie Banks ENTERED: 08/30/24 08:32 SP TYPE: Calculi OTHR DR: JULIANNE Patel Tissues: CALCULI Procedures: Surgery Specimen Level I HEADER OPERATION: Right ureteroscopy, laser stone, right ureteral stent PRE-OP DIAGNOSIS: Calculus of kidney TISSUE SUBMITTED: Right ureteral calculi GROSS DIAGNOSIS Fragments of stone, clinically right ureteral calculi (gross only). SJ.mr 08/30/2024 COMMENT The specimen is submitted in its entirety for chemical stone analysis. The results from this study will be reported separately. GROSS DESCRIPTION Received without fixative labeled with the patient's name and designated right ureteral calculi. The specimen consists of two fragments of brownish-black stone measuring in aggregate 0.7 x 0.3 x 0.2 cm. The entire specimen is submitted for stone analysis. 08/30/2024 CPT: 94654
[2024-09-06 13:07] LABS: Ca Oxalate, Dihydrate 10 % (.); Ca Oxalate, Monohydrate 90 % (.); Size 3x3 mm (.)
== END | disposition home or self-care (01) ==
LOC: LABSPEC 15:20
PROVIDERS: PCP Nurse Practitioner Family; Referring Provider Urology; Visit Provider Urology
DX: N20.2 Calculus of kidney with calculus of ureter (principal)
CPT/HCPCS: 82360; 88300

== ENCOUNTER → 2025-02-25 | Outpatient (CLI) | payer MEDICARE, SELFPAY ==
[2025-03-01 06:08] LABS: QNTFERON TB Mitogen Value > 10.00 IU/mL (.); QNTFERON TB Nil Value 0.07 IU/mL (.); QNTFERON TB1+ Ag Value 0.05 IU/mL (.); QNTFERON TB2+ Ag Value 0.05 IU/mL (.); QNTIFERON TB Positive Criteria Negative (Negative)
== END | disposition home or self-care (01) ==
LOC: MTLAB 14:04
PROVIDERS: PCP Nurse Practitioner Family; Referring Provider Physician Assistant Medical; Visit Provider Physician Assistant Medical
DX: L40.0 Psoriasis vulgaris (principal)
CPT/HCPCS: 36415; 86480